=== PATIENT | female | born 1945 | race Caucasian/White ===

== ENCOUNTER 2016-10-09 19:07 | Emergency (ER) | payer MEDICARE, MEDICAID ==
[~2016-10-09] VITALS: Ht 157.5 cm; Wt 97.1 kg
[~2016-10-09 19:07] MED LIST: ALPR0.5T PO; AMLO10TA PO; AMLO1TAB20 PO; ASPI-587 PO; ATRV10T PO; CAPT25TA3 PO; CHOL5000 PO; CYCL10TA9 PO; DOXA8TAB33 PO; FURO40TA4 PO; GLIP10TA13 PO; GLPZ10TCR PO; HYDR-1231 PO; INSU100C7 SQ; KETO5DRO14 OS; LEVO75TA57 PO; LIRA0.6P2 SQ; Levofloxacin PO; MELO15TA14 PO; METF-380 PO; METF1000 PO; OXYB15TA PO; PARO20TA57 PO; PARO30TA74 PO; PRD20T PO; PRED5DRO3 OS; VALS320T11 PO
--- OUTSIDE RECORDS SUMMARY | 2016-10-09 19:15 | XMS REPORT | Continuity of Care Document ---
Author Author [facility] Organization [facility] Address Unknown Phone Unavailable Care Team Providers Care Sign Maintenance Name Role Phone NO, LOCAL PHYSICIAN PCP Unavailable Insurance Providers Payer Name Policy Number Subscriber Name Relationship s Medicare [id number] Renetta Farrar 18 Self / Same As Patient [facility] [id number] Renetta Farrar 18 Self / Same As Patient Advance Directives Directive Response Recorded Date/Time Advance Directives No 02/09/15 12:15am Organ Donor No 02/09/15 12:15am Resuscitation Status Full Code 02/09/15 12:15am Chief Complaint and Reason for Visit Chief Complaint ACUTE RENAL FAILURE;UTI Reason for Visit Urinary tract infectious disease Acute renal failure Problems Medical Problems Problem Onset Date Status Chest wall pain Unknown Active Non-traumatic subconjunctival hemorrhage of left eye Unknown Active Non-traumatic subconjunctival hemorrhage of left eye Unknown Active Urinary tract infectious disease Unknown Active Acute renal failure Unknown Active Medications Medication Dose Route Sig Days/Qty Instructions Order Date Discontinued Date Status Alprazolam 0.5 Mg PO TWICE A DAY PRN AGITATION 12/20/13 Active Aspirin 81 Mg PO DAILY 12/20/13 02/10/15 Discontinued Atorvastatin Calcium 10 Mg PO BEDTIME 12/20/13 Active Captopril 1 Each PO TWICE A DAY 12/20/13 02/09/15 Discontinued Cholecalciferol 5,000 Unit PO DAILY 12/20/13 Active Doxazosin Mesylate 8 Mg PO BEDTIME 12/20/13 02/10/15 Discontinued Amlodipine/Valsartan/Hctz 1 Each PO DAILY 12/20/13 02/09/15 Discontinued Glipizide 10 Mg PO DAILY 12/20/13 02/09/15 Discontinued Metformin HCl (Glucophage) 1,000 Mg PO TWICE A DAY WITH MEALS 02/10/15 Discontinued Insulin Glargine,Hum.rec.anlog 20 Unit SQ BEDTIME 12/20/13 Active Levothyroxine Sodium 88 Mcg PO DAILY 12/20/13 Active Oxybutynin Chloride (Ditropan Xl) 15 Mg PO DAILY 12/20/13 Active Paroxetine Hcl 30 Mg PO DAILY 12/20/13 02/10/15 Discontinued Cyclobenzaprine HCl (Flexeril) 1 Each PO EVERY 8HRS PRN SPASMS 10 Qty 12/20/13 02/09/15 Discontinued Hydrocodone Bit/Acetaminophen 1 Tab PO EVERY 4HRS PRN PAIN 10 Qty 12/2002/10/15 Discontinued Liraglutide 18 Mg SQ BEDTIME 0 Qty 02/09/15 02/10/15 Discontinued Ketorolac Tromethamine 1 Drop OS TWICE A DAY 5 Qty 02/09/15 Active Furosemide (Lasix) 40 Mg PO DAILY 30 Qty 02/09/15 02/10/15 Discontinued Amlodipine Besylate 10 Mg PO DAILY 30 Qty 02/09/15 Active Valsartan 320 Mg PO DAILY 30 Qty 02/09/15 Active Prednisolone Acetate 1 Drop OS DAILY 5 Qty 02/09/15 Active [Levofloxacin] 250 Mg PO DAILY@11 5 Qty 02/10/15 Active Paroxetine Hcl 15 Mg PO DAILY 30 Qty 02/10/15 Active Social History Social History Problem Response Recorded Date/Time Alcohol Use Denies Use 02/09/2015 12:15am Recreational Drug Use No 02/09/2015 12:15am Recent Foreign Travel No 12/20/2013 5:04pm Recent Infectious Disease Exposure No 12/20/2013 5:04pm Hospitalization with Isolation Denies 02/10/2015 3:33pm Smoking Status Never a Smoker 02/09/2015 12:15am Do you dip or chew tobacco? No 02/09/2015 12:15am Query Response Start Date Stop Date Smoking Status Never a Smoker Hospital Discharge Instructions No hospital discharge instructions. Plan of Care Discharge Date 02/10/15 2:00pm Disposition 30 STILL A PATIENT Instructions/Education Provided Urinary Tract Infection in Women (DC) Forms Provided PDI Surgical Prescriptions See Medications Section Referrals (Unspecified) Reason(s) for Referral: KEEP MAR. APPOINTMENT WITH YOUR Care Plan and Goals May resume furosamide for significant leg swelling. resume metformin tomorrow and victoza evening. hold gulcotrol XL and decrease paxil to 15mg daily{half tab of 30mg}. Keep march F/U with her Functional Status Query Response Date Recorded Comprehension Ability Understands Concepts February 09, 2015 12:15am Allergies, Adverse Reactions, Alerts Allergen Type Severity Reaction Status Last Updated Cephalexin Allergy Intermediate RASH Active 12/20/13 Immunizations Name Given Type Date of Influenza Vaccine 06/09/14 Historical Tetanus Booster (TDap) Unknown Historical pneumococcal polysaccharide PPV23 02/10/15 Administered pneumococcal polysaccharide PPV23 02/10/15 Administered Vital Signs Acute Vital Signs Vital Response Date/Time Temperature (Fahrenheit) 97.5 degrees F (97.6 - 99.5) Temperature (Calculated Celsius) 36.90486 degrees C (36.4 - 37.5) Temperature Source Temporal Pulse Rate (adult) 50 bpm (60 - 90) Respiratory Rate 16 bpm (12 - 24) O2 Sat by Pulse Oximetry 100 % (88 - 100) Blood Pressure 130/68 mm Hg Pain Pain Intensity 0 Height (Feet) 5 feet Height (Inches) 2.00 inches Height (Calculated Centimeters) 157.730978 cm Weight (Pounds) 226 pounds Weight (Ounces) 0.0 oz Weight (Calculated Grams) 559861.877 gm Weight (Calculated Kilograms) 102.884715 kilograms Calculated BMI 41.33 Results Laboratory Results Test Name Result Units Flags Reference Collection Date/Time Result Date/ Time Comments White Blood Count 7.3 10^3/uL 4.3-11.0 02/10/2015 4:21am 02/10/2015 5: 22am Red Blood Count 3.60 10^6/uL L 4.35-5.85 02/10/2015 4:21am 02/10/2015 5: 22am Hemoglobin 10.1 G/DL L 11.5-16.0 02/10/2015 4:21am 02/10/2015 5:22am Hematocrit 32 % L 35-52 02/10/2015 4:02/10/2015 5:22am Mean Corpuscular Volume 88 FL 80-99 02/10/2015 4:02/10/2015 5: 22am Mean Corpuscular Hemoglobin 28 PG 25-34 02/10/2015 4:02/10/2015 5: 22am Mean Corpuscular Hemoglobin Concent 32 G/DL 32-36 02/10/2015 4:02/2015 5:22am Red Cell Distribution Width 15.1 % H 10.0-14.5 02/10/2015 4:2014 5:22am Platelet Count 170 10^3/uL 130-400 02/10/2015 4:02/10/2015 5:22am Mean Platelet Volume 11.5 FL H 7.4-10.4 02/10/2015 4:02/10/2015 5: 22am Neutrophils (%) (Auto) 44 % 42-75 02/10/2015 4:02/10/2015 5:22am Lymphocytes (%) (Auto) 20 % 12-44 02/10/2015 4:02/10/2015 5:22am Monocytes (%) (Auto) 8 % 0-12 02/10/2015 4:02/10/2015 5:22am Eosinophils (%) (Auto) 28 % H 0-10 02/10/2015 4:02/10/2015 5:22am Basophils (%) (Auto) 0 % 0-10 02/10/2015 4:02/10/2015 5:22am Neutrophils # (Auto) 3.3 X 10^3 1.8-7.8 02/10/2015 4:02/10/2015 5: 22am Lymphocytes # (Auto) 1.5 X 10^3 1.0-4.0 02/10/2015 4:02/10/2015 5: 22am Monocytes # (Auto) 0.6 X 10^3 0.0-1.0 02/10/2015 4:02/10/2015 5: 22am Eosinophils # (Auto) 2.0 10^3/uL H 0.0-0.3 02/10/2015 4:21am 02/10/2015 5 :22am Basophils # (Auto) 0.0 10^3/uL 0.0-0.1 02/10/2015 4:21am 02/10/2015 5: 22am Neutrophils % (Manual) 68 % 02/08/2015 10:55pm 02/08/2015 11:35pm Band Neutrophils 1 % 02/08/2015 10:55pm 02/08/2015 11:35pm Lymphocytes % (Manual) 14 % 02/08/2015 10:55pm 02/08/2015 11:35pm Monocytes % (Manual) 2 % 02/08/2015 10:55pm 02/08/2015 11:35pm Eosinophils % (Manual) 15 % 02/08/2015 10:55pm 02/08/2015 11:35pm Basophils % (Manual) 0 % 02/08/2015 10:55pm 02/08/2015 11:35pm Poikilocytosis SLIGHT 02/08/2015 10:55pm 02/08/2015 11:35pm Anisocytosis SLIGHT 02/08/2015 10:55pm 02/08/2015 11:35pm Elliptocytes SLIGHT 02/08/2015 10:55pm 02/08/2015 11:35pm Rouleau MOD 02/08/2015 10:55pm 02/08/2015 11:35pm Urine Color YELLOW 02/08/2015 11:00pm 02/08/2015 11:22pm Urine Clarity SLIGHTLY CLOUDY 02/08/2015 11:00pm 02/08/2015 11: 22pm Urine pH 5 5-9 02/08/2015 11:00pm 02/08/2015 11:22pm Urine Specific [place] 1.015 * 1.016-1.022 02/08/2015 11:00pm 2014 11:22pm Urine Protein NEGATIVE NEGATIVE 02/08/2015 11:00pm 02/08/2015 11: 22pm Urine Glucose (UA) NEGATIVE NEGATIVE 02/08/2015 11:00pm 02/08/2015 11 :22pm Urine RBC (Auto) NEGATIVE NEGATIVE 02/08/2015 11:00pm 02/08/2015 11: 22pm Urine Ketones NEGATIVE NEGATIVE 02/08/2015 11:00pm 02/08/2015 11: 22pm Urine Nitrite POSITIVE * NEGATIVE 02/08/2015 11:00pm 02/08/2015 11: 22pm Urine Bilirubin NEGATIVE NEGATIVE 02/08/2015 11:00pm 02/08/2015 11: 22pm Urine Urobilinogen NORMAL MG/DL NORMAL 02/08/2015 11:00pm 02/08/2015 11 :22pm Urine Leukocyte Esterase 3+ * NEGATIVE 02/08/2015 11:00pm 02/08/2015 11 :22pm Urine RBC NONE /HPF 02/08/2015 11:00pm 02/08/2015 11:22pm Urine WBC 25-50 /HPF * 02/08/2015 11:00pm 02/08/2015 11:22pm WBC CLUMPING OBSERVED Urine Bacteria MODERATE /HPF * 02/08/2015 11:00pm 02/08/2015 11:22pm Urine Squamous Epithelial Cells TNTC /HPF * 02/08/2015 11:00pm 2014 11:22pm Urine Crystals NONE /LPF 02/08/2015 11:00pm 02/08/2015 11:22pm Urine Casts PRESENT /LPF 02/08/2015 11:00pm 02/08/2015 11:22pm Urine Hyaline Casts 0-2 /LPF * 02/08/2015 11:00pm 02/08/2015 11:22pm Urine Mucus NEGATIVE /LPF 02/08/2015 11:00pm 02/08/2015 11:22pm Urine Culture Indicated YES 02/08/2015 11:00pm 02/08/2015 11:22pm Sodium Level 141 MMOL/L 135-145 02/10/2015 4:21am 02/10/2015 5:43am Potassium Level 5.0 MMOL/L 3.6-5.0 02/10/2015 4:21am 02/10/2015 5:43am Chloride Level 113 MMOL/L H 98-107 02/10/2015 4:21am 02/10/2015 5:43am Carbon Dioxide Level 21 MMOL/L 21-32 02/10/2015 4:21am 02/10/2015 5: 43am Blood Urea Nitrogen 31 MG/DL H 7-18 02/10/2015 4:21am 02/10/2015 5:43am Creatinine 1.35 MG/DL H 0.60-1.30 02/10/2015 4:21am 02/10/2015 5:43am BUN/Creatinine Ratio 23 02/10/2015 4:21am 02/10/2015 5:43am Estimat Glomerular Filtration Rate 39 02/10/2015 4:21am 02/10/2015 5:43am GFR INTERPRETIVE DATA UNITS FOR ESTIMATED GFR (eGFR): mL/min/1.73 M2 REFERENCE RANGE FOR ESTIMATED GFR (eGFR) eGFR NORMAL eGFR >60 MODERATELY DECREASED eGFR 30-59 SEVERLY DECREASED eGFR 15-29 KIDNEY FAILURE <15 (OR DIALYSIS) Glucose Level 98 MG/DL 70-105 02/10/2015 4:21am 02/10/2015 5:43am Glucometer 133 MG/DL H 70-110 02/10/2015 9:26am 02/10/2015 9:33am Calcium Level 9.0 MG/DL 8.5-10.1 02/10/2015 4:21am 02/10/2015 5:43am Total Bilirubin 1.1 MG/DL H 0.1-1.0 02/09/2015 6:16am 02/09/2015 6:43am Alkaline Phosphatase 73 U/L 40-136 02/09/2015 6:16am 02/09/2015 6:43am Aspartate Amino Transf (AST/SGOT) 14 U/L 5-34 02/09/2015 6:16am 2014 6:43am Alanine Aminotransferase (ALT/SGPT) 9 U/L 0-55 02/09/2015 6:16am 2014 6:43am Total Protein 6.2 G/DL L 6.4-8.2 02/09/2015 6:16am 02/09/2015 6:43am Albumin 3.5 G/DL 3.2-4.5 02/09/2015 6:16am 02/09/2015 6:43am Microbiology Results Procedure Source Result Collection Date/Time Result Date/Time Urine Culture Urine, Clean Catch ESCHERICHIA COLI 02/08/2015 11:00pm 2014 7:46am ESCHERICHIA COLI 02/08/2015 11:00pm 02/10/2015 7:46am Procedures No known history of procedures. Encounters Encounter Location Date/Time Discharged Inpatient [facility] 02/08/15 11:50pm Departed Emergency Room [facility] 01/24/15 11:45pm Recent Diagnosis Urinary tract infectious disease Acute renal failure
--- NOTE | 2016-10-09 19:43 | ED Integumentary General ---
General Chief Complaint: Skin/Wound Problems Stated Complaint: POSS BITE Nursing Triage Note: Pt c/o poss bite to R shoulder. Pt reports first noticing area 2 days ago but reports area became more red and swollen today. Source: patient, spouse Exam Limitations: no limitations History of Present Illness Time seen by provider: 19:43 Initial Comments 71-year-old female patient presents to the emergency department with complaints of possible insect bite to the right shoulder. Patient reports increased swelling, redness, tenderness. Denies drainage. Location Injury Occurred: unknown Timing/Duration: getting worse, other (today onset) Location: extremities (right anterior shoulder) Possible Cause: insect bite (possible insect bite) Modifying Factors: worse with other (worse with palpation) Allergies and Home Medications Allergies Coded Allergies: cephalexin (Verified Allergy, Intermediate, RASH, 01/19/16) Home Medications Alprazolam 0.5 Mg Tablet 0.5 MG PO BID PRN PRN AGITATION (Reported) Amlodipine Besylate 10 Mg Tablet #30 10 MG PO DAILY (Reported) Atorvastatin Calcium 10 Mg Tablet 10 MG PO HS (Reported) Cholecalciferol 5,000 Unit Capsule 5,000 UNIT PO DAILY (Reported) Clindamycin HCl 300 Mg Capsule #28 300 MG PO QID Prescribed by: RAN FUNK on 10/09/161952 Insulin Glargine,Hum.rec.anlog 100 Unit/1 Ml Cartridge 20 UNIT SQ HS (Reported) Ketorolac Tromethamine 5 Ml Drops #5 1 DROP OS BID (Reported) Levothyroxine Sodium 75 Mcg Tablet 88 MCG PO DAILY (Reported) Meloxicam 15 Mg Tablet #20 15 MG PO DAILY Prescribed by: RAN FUNK on 06/27/16 1715 Minocycline HCl 100 Mg Capsule #14 100 MG PO BID Prescribed by: RAN FUNK on 10/09/161952 Ondansetron 8 Mg Tab.rapdis #10 8 MG PO Q6H PRN PRN NAUSEA Prescribed by: RAN FUNK on 10/09/162142 Oxybutynin Chloride 15 Mg Tab.osm.24 15 MG PO DAILY (Reported) Valsartan 320 Mg Tablet #30 320 MG PO DAILY (Reported) Constitutional: No chills, No diaphoresis, No dizziness, No fever, No malaise EENTM: no symptoms reported Respiratory: no symptoms reported Cardiovascular: no symptoms reported Gastrointestinal: no symptoms reported Musculoskeletal: no symptoms reported Skin: see HPI change in color (erythema right anterior shoulder) lumps (right anterior shoulder) Psychiatric/Neurological: No Symptoms Reported All Other Systems Reviewed Negative Unless Noted: Yes (Negative excepted noted.) Past Imsyxkm-Odrycx-Tvcnqk Hx Patient Social History Alcohol Use: Denies Use Recreational Drug Use: No Smoking Status: Never a Smoker Recent Foreign Travel: No Contact w/Someone Who Travel: No Recent Infectious Disease Expo: No Recent Hopitalizations: No Immunizations Up To Date Tetanus Booster (TDap): Unknown Date of Influenza Vaccine: Jun 09, 2014 Seasonal Allergies Seasonal Allergies: No Surgeries HX Surgeries: Yes (knee replacement x3, right mastectomy, back, hand, elbow surgery) Surgeries: Appendectomy, Breast, Eye Surgery, Orthopedic, Thyroidectomy Respiratory Hx Respiratory Disorders: No Cardiovascular Hx Cardiac Disorders: Yes Cardiac Disorders: High Cholesterol, Hypertension Neurological Hx Neurological Disorders: No 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, Menopausal Genitourinary Hx Genitourinary Disorders: Yes Genitourinary Disorders: UTI-Chronic Gastrointestinal Hx Gastrointestinal Disorders: No Musculoskeletal Hx Musculoskeletal Disorders: Yes Musculoskeletal Disorders: Arthritis Endocrine Hx Endocrine Disorders: Yes Endocrine Disorders: Diabetes, Insulin dep, Hypothyroidsim HEENT HX ENT Disorders: Yes HEENT Disorders: Cataract Cancer Hx Cancer: Yes Cancer: Breast Psychosocial Hx Psychiatric Problems: Yes Behavioral Health Disorders: Anxiety, Depression Integumentary HX Skin/Integumentary Disorder: No Blood Transfusions Hx Blood Disorders: No Reviewed Nursing Assessment Reviewed/Agree w Nursing PMH: Yes Family Medical History Significant Family History: No Pertinent Family Hx Family Medial History: Arthritis G8 BROTHER BRAIN ANEURYSM 19 MOTHER Hypertension G8 BROTHER G8 BROTHER G8 BROTHER Myocardial infarction 19 FATHER Physical Exam Vital Signs Vital Sign - Last 12Hours 10/09/16 19:19 Temp 96.4 Pulse 66 Resp 18 B/P 146/61 Pulse Ox 95 O2 Delivery Room Air Capillary Refill : Less Than 3 Seconds General Appearance: WD/WN no apparent distress Cardiovascular: normal peripheral pulses no edema Extremities: normal range of motion normal capillary refill other (2 x 3 centimeter area of erythema, tenderness, and swelling with central scab. Mild fluctuance centrally with surrounding induration. No evidence of necrosis noted.) Neurologic/Psychiatric: no motor/sensory deficits alert normal mood/affect oriented x 3 Skin: other (2 x 3 centimeter area of erythema, tenderness, and swelling with central scab. Mild fluctuance centrally with surrounding induration. No evidence of necrosis noted.) I&D : Site: right anterior shoulder Blade Size: 11 I & D Procedure: betadine prep sterile drapes applied sterile dressing applied gauze wick placed Progress Blood loss minimal. Patient tolerated the procedure well. Progress/Results/Core Measures Results/Orders My Orders Orders-RAN FUNK Lidocaine/Epi 1% 1:100,000 (Xylocaine /E (10/09/16 20:00) Clindamycin Capsule (Cleocin Capsule) (10/09/16 20:00) Rx-Doxycycline Tablet (Rx-Vibramycin Tab (10/09/16 19:46) Dipht,Pertuss(Acell),Tet Adult (Boostrix (10/09/16 19:49) Wound Culture (10/09/16 21:42) Medications Given in ED Current Medications Medications Dose Ordered Sig/[place] Route Start Time Stop Time Status Last Admin Dose Admin Clindamycin HCl 450 mg ONCE ONCE PO 10/09/16 20:00 10/09/16 20:01 DC 10/09/16 19:58 450 MG Lidocaine/ Epinephrine 20 ml ONCE ONCE INJ 10/09/16 20:00 10/09/16 20:01 DC 10/09/16 21:25 1 ML Vital Signs/I&O Vital Sign - Last 12Hours 10/09/16 19:19 Temp 96.4 Pulse 66 Resp 18 B/P 146/61 Pulse Ox 95 O2 Delivery Room Air Blood Pressure Mean: 89 Departure Communication Progress Notes Patient seen, evaluated, and incision with drainage performed. Patient now states she was seen at [facility] emergency department earlier today and only given Bactrim. Patient states she was concerned that the wound needed to be drained and therefore did not fill the Bactrim. Decided to come to the emergency department at [facility] for evaluation and second opinion. Patient is appreciative of care given at [facility]. Proceed with discharge to home with Cleocin and doxycycline. Patient instructed to avoid using the Bactrim due to interaction with her BP meds. Impression Impression: Primary Impression: Abscess Disposition: 01 HOME, SELF-CARE Condition: Improved Departure-Patient Inst. Decision time for Depature: 19:51 Referrals: NO,LOCAL PHYSICIAN (PCP/Family) Primary Care Physician Patient Instructions: Abscess Incision and Drainage (DC) Add. Discharge Instructions: All discharge instructions reviewed with patient and/or family. Voiced understanding. Medications as instructed. Continue usual home medications. Tylenol [id number] as directed for pain. Ibuprofen [id number] as directed for pain. Ice packs or heating pads as needed for pain. Tomorrow morning remove the bandage, shower with antibacterial soap, Pat dry. Pack wound with a small piece of gauze. Cover with gauze and tape. Follow-up with your family practitioner for recheck as an outpatient in the next 2-3 days, call for appointment time tomorrow morning. Return to the emergency department for worsened redness, drainage, fever, vomiting, or any other concerns. Scripts Ondansetron (Ondansetron Odt)8 Mg Tab.rapdis8 Mg PO Q6H PRN NAUSEA #10 TAB Ref 0 Prov:RAN FUNK 10/09/16 Minocycline HCl 100 Mg [id number] Mg PO BID #14 CAP Ref 0 Prov:RAN FUNK 10/09/16 Clindamycin HCl (Cleocin HCl)300 Mg [id number] Mg PO QID #28 CAP Ref 0 Prov:RAN FUNK 10/09/16 Work/School Note: Local Medical Staff Listing RAN FUNK Oct 09, 2016 19:43
[2016-10-09] MEDS ORDERED: RX-DOXYCYCLINE 100 MG (VIBRAMYCIN) TAB PPK#2 PO STA (19:46)
[2016-10-09] MEDS ORDERED: TETANUS,DIPTH,PERTUSS P/F (BOOSTRIX) 0.5 ML VIAL IM STA (19:49)
[2016-10-09] MEDS ORDERED: CLIN300C3 PO (19:53)
[2016-10-09] MEDS ORDERED: MINO100C2 PO (19:53)
[2016-10-09] MEDS ORDERED: LIDOCAINE/EPI 1%-1:100,000 (XYLOCAINE) 20ML INJ ONE (20:00)
[2016-10-09] MEDS ORDERED: CLINDAMYCIN 150 MG (CLEOCIN) CAP PO ONE (20:00)
[2016-10-09 21:41] VITALS: BP 140/65
[2016-10-09] MEDS ORDERED: ONDA8TAB13 PO (21:43)
== END 2016-10-09 21:41 | disposition home or self-care (01) ==
LOC: EDUNIT# 19:07 → ER 19:10
DX: L02.413 Cutaneous abscess of right upper limb (principal); Z23 Encounter for immunization; E11.9 Type 2 diabetes mellitus without complications; I10 Essential (primary) hypertension; Z79.4 Long term (current) use of insulin; Z79.899 Other long term (current) drug therapy
CPT/HCPCS: 10061; 87070; 87077; 87186; 87205; 90471; 90715

== ENCOUNTER 2016-11-06 00:30 | Emergency (ER) | payer MEDICARE, MEDICAID ==
[~2016-11-06] VITALS: Ht 157.5 cm; Wt 97.1 kg
[~2016-11-06 00:30] MED LIST changes: +CLIN300C3 PO; +MINO100C2 PO; +ONDA8TAB13 PO
[2016-11-06 01:15] LABS: BASOPHILS % (AUTO) 1 % (0-10); EOSINOPHILS # (AUTO) 0.4 10^3/uL (0.0-0.3); EOSINOPHILS % (AUTO) 7 % (0-10); LYMPHOCYTES # (AUTO) 1.4 X 10^3 (1.0-4.0); LYMPHOCYTES % (AUTO) 22 % (12-44); MEAN CORPUSCULAR HEMOGLOBIN 28 PG (25-34); MEAN CORPUSCULAR HGB CONC 31 G/DL (32-36); MEAN CORPUSCULAR VOLUME 90 FL (80-99); MEAN PLATELET VOLUME 10.8 FL (7.4-10.4); MONOCYTES # (AUTO) 0.6 X 10^3 (0.0-1.0); MONOCYTES % (AUTO) 9 % (0-12); NEUTROPHILS # (AUTO) 3.8 X 10^3 (1.8-7.8); NEUTROPHILS % (AUTO) 62 % (42-75); PLATELET COUNT 227 10^3/uL (130-400); RED BLOOD COUNT 3.16 10^6/uL (4.35-5.85); RED CELL DISTRIBUTION WIDTH 14.5 % (10.0-14.5); WHITE BLOOD COUNT 6.2 10^3/uL (4.3-11.0)
--- NOTE | 2016-11-06 02:36 | ED Fall/Injury ---
General Chief Complaint: Lower Extremity Stated Complaint: FALL INJ L LEG Nursing Triage Note: LEFT KNEE PAIN S/P FALL FROM SITTING POSTION. REPORTS TWISTING KNEE Source: patient Exam Limitations: no limitations History of Present Illness Time seen by provider: 00:30 Initial Comments Patient presents to the ER with complaints of left knee pain after having a fall about 3 days ago. She fell off of the stool twisting her foot/knee. She has been ambulatory with pain. She reports pain has worsened since the initial injury. She has pain and tenderness that radiates down into the left upper calf. Allergies and Home Medications Allergies Coded Allergies: cephalexin (Verified Allergy, Intermediate, RASH, 01/19/16) Home Medications Alprazolam 0.5 Mg Tablet, 0.5 MG PO BID PRN for AGITATION, (Reported) Amlodipine Besylate 10 Mg Tablet, 10 MG PO DAILY, #30 (Reported) Atorvastatin Calcium 10 Mg Tablet, 10 MG PO HS, (Reported) Cholecalciferol 5,000 Unit Capsule, 5,000 UNIT PO DAILY, (Reported) Hydrocodone/Acetaminophen 1 Each Tablet, 1 EACH PO Q6H PRN for PAIN, #10 Prescribed by: OMI BORRERO on 11/06/16 0238 Insulin Glargine,Hum.rec.anlog 100 Unit/1 Ml Cartridge, 20 UNIT SQ HS, (Reported ) Ketorolac Tromethamine 5 Ml Drops, 1 DROP OS BID, #5 (Reported) Levothyroxine Sodium 75 Mcg Tablet, 88 MCG PO DAILY, (Reported) Meloxicam 15 Mg Tablet, 15 MG PO DAILY, #20 Ref 0 Prescribed by: RAN FUNK on 06/27/16 1715 Minocycline HCl 100 Mg Capsule, 100 MG PO BID, #14 Ref 0 Prescribed by: RAN FUNK on 10/09/16 1953 Ondansetron 8 Mg Tab.rapdis, 8 MG PO Q6H PRN for NAUSEA, #10 Ref 0 Prescribed by: RAN FUNK on 10/09/16 2143 Oxybutynin Chloride 15 Mg Tab.osm.24, 15 MG PO DAILY, (Reported) Valsartan 320 Mg Tablet, 320 MG PO DAILY, #30 (Reported) Constitutional: no symptoms reported Eyes: No Symptoms Reported Ears, Nose, Mouth, Throat: no symptoms reported Respiratory: no symptoms reported Cardiovascular: no symptoms reported Gastrointestinal: no symptoms reported Genitourinary: no symptoms reported Musculoskeletal: see HPI Skin: no symptoms reported Psychiatric/Neurological: No Symptoms Reported Past Qyozocj-Kuwdiu-Ckadfl Hx Patient Social History Alcohol Use: Denies Use Recreational Drug Use: No Smoking Status: Never a Smoker 2nd Hand Smoke Exposure: No Recent Foreign Travel: No Contact w/Someone Who Travel: No Recent Infectious Disease Expo: No Recent Hopitalizations: No Immunizations Up To Date Tetanus Booster (TDap): Unknown Date of Influenza Vaccine: Jun 09, 2014 Seasonal Allergies Seasonal Allergies: No Surgeries HX Surgeries: Yes (knee replacement x3, right mastectomy, back, hand, elbow surgery) Surgeries: Appendectomy, Bladder Surgery, Breast, Eye Surgery, Hysterectomy, Joint Replacement (Bilateral knees), Orthopedic (Bilateral knee replacements, shoulder, leg fracture, back, carpal tunnel), Thyroidectomy Respiratory Hx Respiratory Disorders: No Cardiovascular Hx Cardiac Disorders: Yes Cardiac Disorders: Cardiomyopathy, High Cholesterol, Hypertension Neurological Hx Neurological Disorders: No 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 System Hx 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 Disorders: Yes 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, Menopausal Genitourinary Hx Genitourinary Disorders: Yes Genitourinary Disorders: Neurogenic Bladder, UTI-Chronic Gastrointestinal Hx Gastrointestinal Disorders: No Musculoskeletal Hx Musculoskeletal Disorders: Yes Musculoskeletal Disorders: Arthritis Endocrine Hx Endocrine Disorders: Yes Endocrine Disorders: Diabetes, Insulin dep, Hypothyroidsim HEENT HX ENT Disorders: Yes HEENT Disorders: Cataract Cancer Hx Cancer: Yes Cancer: Breast Psychosocial Hx Psychiatric Problems: Yes Behavioral Health Disorders: Anxiety, Depression Integumentary HX Skin/Integumentary Disorder: No Blood Transfusions Hx Blood Disorders: No Family Medical History Significant Family History: No Pertinent Family Hx Family Medial History: Arthritis G8 BROTHER BRAIN ANEURYSM 19 MOTHER Hypertension G8 BROTHER G8 BROTHER G8 BROTHER Myocardial infarction 19 FATHER Physical Exam Vital Signs Capillary Refill : Less Than 3 Seconds General Appearance: WD/WN, no apparent distress HEENT: PERRL/EOMI, normal ENT inspection Neck: normal inspection Cardiovascular: regular rate, rhythm Respiratory: normal breath sounds Extremities: no pedal edema, other (Posterior knee tenderness that radiates into the left calf. Range of motion intact with mild pain. 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 nml as tested, no motor/sensory deficits, alert, normal mood/affect, oriented x 3 Skin: normal color, warm/dry Bandar Coma Score Best Eye Response: (4) Open Spontaneously Best Verbal Response: (5) Oriented Best Motor Response: (6) Obeys Commands [place] Total: 15 Progress/Results/Core Measures Results/Orders Lab Results Laboratory Tests Test 11/06/16 01:08 Range/Units White Blood Count 6.2 4.3-11.0 10^3/uL Red Blood Count 3.16 L 4.35-5.85 10^6/uL Hemoglobin 8.8 L 11.5-16.0 G/DL Hematocrit 28 L 35-52 % Mean Corpuscular Volume 90 80-99 FL Mean Corpuscular Hemoglobin 28 25-34 PG Mean Corpuscular Hemoglobin Concent 31 L 32-36 G/DL Red Cell Distribution Width 14.5 10.0-14.5 % Platelet Count 227 130-400 10^3/uL Mean Platelet Volume 10.8 H 7.4-10.4 FL Neutrophils (%) (Auto) 62 42-75 % Lymphocytes (%) (Auto) 22 12-44 % Monocytes (%) (Auto) 9 0-12 % Eosinophils (%) (Auto) 7 0-10 % Basophils (%) (Auto) 1 0-10 % Neutrophils # (Auto) 3.8 1.8-7.8 X 10^3 Lymphocytes # (Auto) 1.4 1.0-4.0 X 10^3 Monocytes # (Auto) 0.6 0.0-1.0 X 10^3 Eosinophils # (Auto) 0.4 H 0.0-0.3 10^3/uL Basophils # (Auto) 0.0 0.0-0.1 10^3/uL D-Dimer 1.14 H 0.00-0.49 UG/ML C-Reactive Protein High Sensitivity 1.79 H 0.00-0.50 MG/DL My Orders Orders - OMI BARTH MD Cbc With Automated Diff (11/06/16 00:57) Hs C Reactive Protein (11/06/16 00:57) Fibrin Degradation Products (11/06/16 00:57) Knee, Left, 3 Views (11/06/16 00:57) Us Venous Lower Ext Lt (11/06/16 01:31) Hydrocodone/Apap 5/325 Tablet (Lortab 5 (11/06/16 02:45) Vital Signs/I&O Blood Pressure Mean: 90 Progress Note : Progress Note Basic labs were performed. WBC and CRP were not significantly abnormal. However, d-dimer was elevated. Follow-up ultrasound was performed and showed no evidence of DVT. X-ray showed no evidence of fracture or dislocation. Patient was treated with hydrocodone and dismissed. Diagnostic Imaging Diagonstic Imaging: Xray Plain Films/CT/US/NM/MRI: knee Comments X-ray viewed by me. Report not yet available. No acute abnormalities appreciated. Prosthesis seems in good position. Diagonstic Imaging: Ultrasound Plain Films/CT/US/NM/MRI: leg Comments Ultrasound of the left lower extremity showed no evidence for DVT. Stat Rad report reviewed. Departure Impression Impression: Primary Impression: Fall involving stool as cause of accidental injury Additional Impression: Left knee injury Qualified Codes: S89.92XA - Unspecified injury of left lower leg, initial encounter Disposition: HOME, SELF-CARE Condition: Improved Departure-Patient Inst. Decision time for Depature: 02:30 Referrals: NO,LOCAL PHYSICIAN (PCP/Family) Primary Care Physician Patient Instructions: Knee Sprain (DC) Add. Discharge Instructions: Take hydrocodone as prescribed for knee pain. It may be christy to take a stool softener with your hydrocodone to avoid constipation. Please follow-up with your orthopedic provider and/or primary care provider soon as possible. Rest, elevation, and icing in 20 minute intervals may be helpful in reducing pain and swelling. All discharge instructions reviewed with patient and/or family. Voiced understanding. Scripts Hydrocodone/Acetaminophen (Hydrocodon -Acetaminophen 5-325) 1 Each Tablet 1 EACH PO Q6H Y for PAIN, #10 TAB Prov: OMI BARTH MD 11/06/16 OMI BARTH MD Nov 06, 2016 02:35
[2016-11-06] MEDS ORDERED: HYDR-3812 PO (02:38)
[2016-11-06 02:43] VITALS: BP 144/61
[2016-11-06] MEDS ORDERED: HYDROcodone/APAP 5 MG/325 MG (LORTAB) TAB PO ONE (02:45)
--- NOTE | 2016-11-06 06:12 | Diagnostic Imaging Report ---
PROCEDURE: US left lower extremity venous. TECHNIQUE: Multiple real-time grayscale images were obtained over the left lower extremity in various projections. Additional duplex Doppler and color Doppler images were also obtained. INDICATION: Left knee pain. FINDINGS: The left common femoral, superficial femoral and popliteal veins demonstrate normal response to compression, augmentation, and Valsalva. There are no abnormal left lower extremity fluid collections or masses. IMPRESSION: No evidence of deep venous thrombosis in the left lower extremity. Dictated by: Dictated on workstation # [id number]
--- NOTE | 2016-11-06 08:08 | Diagnostic Imaging Report ---
INDICATION: Knee pain. 3 views were obtained. Comparison made with prior examination from 02/09/16. FINDINGS: There are stable post surgical changes of a left knee arthroplasty. Hardware is in satisfactory position. There is no fracture or dislocation. Soft tissues are unremarkable. IMPRESSION: Stable left knee arthroplasty. Dictated by: Dictated on workstation # [id number]
--- OUTSIDE RECORDS SUMMARY | 2016-11-29 11:34 | XMS REPORT | Continuity of Care Document ---
Author Author [facility] Organization [facility] Address Unknown Phone Unavailable Allergies Active Description Code Type Severity Reaction Onset Reported/Identified Relationship to Patient Clinical Status Yes cephalexin [id number] Drug Allergy Moderate RASH 01/19/2016 Medications Problems Date Dx Coded Attending Type Code Diagnosis Diagnosed By 12/20/2013 RAN WILLINGHAM Ot 722.0 CERVICAL DISC DISPLACMNT 12/20/2013 RAN WILLINGHAM Ot 723.1 CERVICALGIA 12/20/2013 RAN WILLINGHAM Ot 728.85 SPASM OF MUSCLE 07/19/2014 LYNN VILLAFANA WELDING TESTER Ot 786.50 CHEST PAIN NOS 07/19/2014 LYNN VILLAFANA WELDING TESTER Ot 786.52 PAINFUL RESPIRATION 01/25/2015 TRICIA MCCRARY QUINTON K Ot 372.72 CONJUNCTIVAL HEMORRHAGE 01/25/2015 ANICETO CLARKE DOA K Ot 379.91 PAIN IN OR AROUND EYE 02/10/2015 VIKTOR ZIMMER MD Ot 038.42 E COLI SEPTICEMIA 02/10/2015 VIKTOR ZIMMER MD Ot 244.0 POSTSURGICAL HYPOTHYROID 02/10/2015 VIKTOR ZIMMER MD Ot 250.00 DIAB NATHALIA WO COMPL, TYPE II OR UNSPEC TY 02/10/2015 VIKTOR ZIMMER MD Ot 272.0 PURE HYPERCHOLESTEROLEM 02/10/2015 VIKTOR ZIMMER MD Ot 272.4 HYPERLIPIDEMIA NEC/NOS 02/10/2015 VIKTOR ZIMMER MD Ot 276.51 DEHYDRATION 02/10/2015 VIKTOR ZIMMER MD Ot 296.20 DEPRESS DISORDER-UNSPEC 02/10/2015 VIKTOR ZIMMER MD Ot 300.00 ANXIETY STATE NOS 02/10/2015 VIKTOR ZIMMER MD Ot 311 02/10/2015 VIKTOR ZIMMER MD Ot 401.9 HYPERTENSION NOS 02/10/2015 VIKTOR ZIMMER MD Ot 536.2 PERSISTENT VOMITING 02/10/2015 VIKTOR ZIMMER MD Ot 584.9 ACUTE RENAL FAILURE, UNSPECIFIED 02/10/2015 VIKTRO ZIMMER MD Ot 599.0 URIN TRACT INFECTION NOS 02/10/2015 VIKTOR ZIMMER MD Ot 716.90 ARTHROPATHY NOS-UNSPEC 02/10/2015 VIKTOR ZIMMER MD Ot 724.5 BACKACHE NOS 02/10/2015 VIKTOR ZIMMER MD Ot 995.91 SEPSIS 02/10/2015 VIKTOR ZIMMER MD Ot V03.82 PROPHYLACTIC VACC AGAINST STREPTOCOCCUS 02/10/2015 VIKTOR ZIMMER MD Ot V10.3 HX OF BREAST MALIGNANCY 02/10/2015 VIKTOR ZIMMER MD Ot V45.71 ACQUIRED ABSENCE OF BREAST AND NIPPLE 02/10/2015 VIKTOR ZIMMER MD Ot V58.67 LONG-TERM (CURRENT) USE OF INSULIN 01/19/2016 RAN WILLINGHAM Ot M72.2 PLANTAR FASCIAL FIBROMATOSIS 01/20/2016 RAN WILLINGHAM Ot M72.2 PLANTAR FASCIAL FIBROMATOSIS 02/09/2016 MELBA REHMAN MD Ot S80.02XA CONTUSION OF LEFT KNEE, INITIAL ENCOUNTE 02/09/2016 MELBA REHMAN MD, Ot W01.0XXA FALL SAME LEV FROM SLIP/TRIP W/O STRIKE 02/09/2016 MELBA REHMAN MD, Ot Y92.[address] IN SINGLE-FAMILY (PRIVATE ) HO 02/09/2016 MELBA REHMAN MD, Ot Y99.8 OTHER EXTERNAL CAUSE STATUS 02/09/2016 MELBA REHMAN MD, Ot Z96.652 PRESENCE OF LEFT ARTIFICIAL KNEE JOINT 02/10/2016 RAN WILLINGHAM Ot M72.2 PLANTAR FASCIAL FIBROMATOSIS 02/12/2016 RAN WILLINGHAM Ot M72.2 PLANTAR FASCIAL FIBROMATOSIS 06/27/2016 RAN WILLINGHAM Ot E11.9 TYPE 2 DIABETES MELLITUS WITHOUT COMPLIC 06/27/2016 RAN WILLINGHAM Ot I10 ESSENTIAL (PRIMARY) HYPERTENSION 06/27/2016 RAN WILLINGHAM Ot M25.552 PAIN IN LEFT HIP 06/27/2016 RAN WILLINGHAM Ot M54.42 LUMBAGO WITH SCIATICA, LEFT SIDE 06/27/2016 RAN WILLINGHAM Ot Z79.4 RESIDENTIAL (CURRENT) USE OF INSULIN 06/27/2016 RAN WILLINGHAM Ot Z79.899 OTHER RESIDENTIAL (CURRENT) DRUG THERAPY 06/29/2016 RAN WILLINGHAM Ot E11.9 TYPE 2 DIABETES MELLITUS WITHOUT COMPLIC 06/29/2016 RAN WILLINGHAM Ot I10 ESSENTIAL (PRIMARY) HYPERTENSION 06/29/2016 RAN WILLINGHAM Ot M25.552 PAIN IN LEFT HIP 06/29/2016 RAN WILLINGHAM Ot M54.42 LUMBAGO WITH SCIATICA, LEFT SIDE 06/29/2016 RAN WILLINGHAM Ot 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.4 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 VENDOR 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 (CURRENT) USE OF INSULIN 06/29/2016 RAN WILLINGHAM Ot Z79.899 OTHER SUPERVISOR VENDOR QUALITY (CURRENT) DRUG THERAPY 10/09/2016 RAN WILLINGHAM Ot E11.9 TYPE 2 DIABETES MELLITUS WITHOUT COMPLIC 10/09/2016 RAN WILLINGHAM Ot I10 ESSENTIAL (PRIMARY) HYPERTENSION 10/09/2016 RAN WILLINGHAM Ot L02.413 CUTANEOUS ABSCESS OF RIGHT UPPER LIMB 10/09/2016 RAN WILLINGHAM Ot Z23 ENCOUNTER FOR IMMUNIZATION 10/09/2016 RAN WILLINGHAM Ot Z79.4 RESIDENTIAL (CURRENT) USE OF INSULIN 10/09/2016 RAN WILLINGHAM Ot Z79.899 OTHER RESIDENTIAL (CURRENT) DRUG THERAPY 10/11/2016 RAN WILLINGHAM Ot E11.9 TYPE 2 DIABETES MELLITUS WITHOUT COMPLIC 10/11/2016 RAN WILLINGHAM Ot I10 ESSENTIAL (PRIMARY) HYPERTENSION 10/11/2016 RAN WILLINGHAM Ot L02.413 CUTANEOUS ABSCESS OF RIGHT UPPER LIMB 10/11/2016 RAN WILLINGHAM Ot Z23 ENCOUNTER FOR IMMUNIZATION 10/11/2016 RAN WILLINGHAM Ot Z79.4 RESIDENTIAL (CURRENT) USE OF INSULIN 10/11/2016 RAN WILLINGHAM Ot Z79.899 OTHER SUPERVISOR VENDOR QUALITY (CURRENT) DRUG THERAPY 10/14/2016 RAN WILLINGHAM Ot E11.9 TYPE 2 DIABETES MELLITUS WITHOUT COMPLIC 10/14/2016 RAN WILLINGHAM Ot I10 ESSENTIAL (PRIMARY) HYPERTENSION 10/14/2016 RAN WILLINGHAM Ot L02.413 CUTANEOUS ABSCESS OF RIGHT UPPER LIMB 10/14/2016 RAN WILLINGHAM Ot Z23 ENCOUNTER FOR IMMUNIZATION 10/14/2016 RAN WILLINGHAM Ot Z79.4 RESIDENTIAL (CURRENT) USE OF INSULIN 10/14/2016 RAN WILLINGHAM Ot Z79.899 OTHER SUPERVISOR VENDOR QUALITY (CURRENT) DRUG THERAPY 11/08/2016 OMI BARTH MD Ot E11.9 TYPE 2 DIABETES MELLITUS WITHOUT COMPLIC 11/08/2016 OMI BARTH MD, Ot I10 ESSENTIAL (PRIMARY) HYPERTENSION 11/08/2016 OMI BARTH MD, Ot S89.92XA UNSPECIFIED INJURY OF LEFT LOWER LEG, IN 11/08/2016 OMI BARTH MD, Ot W07.XXXA FALL FROM CHAIR, INITIAL ENCOUNTER 11/08/2016 OMI BARTH MD, Ot Y99.8 OTHER EXTERNAL CAUSE STATUS 11/08/2016 OMI BARTH MD, Ot Z79.4 RESIDENTIAL (CURRENT) USE OF INSULIN 11/08/2016 OMI BARTH MD, Ot Z79.899 OTHER SUPERVISOR VENDOR QUALITY (CURRENT) DRUG THERAPY 11/08/2016 OMI BARTH MD, Ot Z85.3 PERSONAL HISTORY OF MALIGNANT NEOPLASM O 11/08/2016 OMI BARTH MD, Ot Z90.12 ACQUIRED ABSENCE OF LEFT BREAST AND NIPP 11/08/2016 OMI BARTH MD, Ot Z96.652 PRESENCE OF LEFT ARTIFICIAL KNEE JOINT Procedures Results Test Result Range Gram stain microscopy - 10/09/16 21:25 GRAM STAIN RESULT NO BACTERIA NRG Bacteria identification in wound by culture - 10/09/16 21:25 Bacteria identification in wound by culture [id number] NRG FREE TEXT EXTERNAL SENSITIVITY REPORTED 10/11/16 7:35 NRG QUANTITY OF GROWTH Moderate Growth NRG MRSA AGAR Screening test for MRSA is NEGATIVE (Final to follow) NRG CALL POSITIVES (F1 HELP) CALLED TO VERÓNICA GALLAGHER 10/11/16 7:45 BY [facility] Bacterial susceptibility panel - 10/09/16 21:25 Oxacillin susceptibility test by minimum inhibitory concentration >= NRG Gentamicin susceptibility test by minimum inhibitory concentration <= NRG Clindamycin susceptibility test by minimum inhibitory concentration <= NRG Erythromycin susceptibility test by minimum inhibitory concentration >= NRG Trimethoprim/sulfamethoxazole susceptibility test by minimum inhibitoryconcentration <= NRG Vancomycin susceptibility test by minimum inhibitory concentration 1 NRG Levofloxacin susceptibility test by minimum inhibitory concentration 0.5 NRG Rifampin susceptibility test by minimum inhibitory concentration <= NRG Tetracycline susceptibility test by minimum inhibitory concentration <= NRG Complete blood count (CBC) with automated white blood cell (WBC) differential - 11/06/16 01:08 Blood leukocytes automated count (number/volume) 6.2 10*3/ uL 4.3-11.0 Blood erythrocytes automated count (number/volume) 3.16 10*6 /uL 4.35-5.85 Venous blood hemoglobin measurement (mass/volume) 8.8 g/dL 11.5-16.0 Blood hematocrit (volume fraction) 28 % 35-52 Automated erythrocyte mean corpuscular volume 90 [foz_us] 80-99 Automated erythrocyte mean corpuscular hemoglobin (mass per erythrocyte) 28 pg 25-34 Automated erythrocyte mean corpuscular hemoglobin concentration measurement ( mass/volume) 31 g/dL 32-36 Automated erythrocyte distribution width ratio 14.5 % 10.0-14.5 Automated blood platelet count (count/volume) 227 10*3/uL 130-400 Automated blood platelet mean volume measurement 10.8 [foz_ us] 7.4-10.4 Automated blood neutrophils/100 leukocytes 62 % 42-75 Automated blood lymphocytes/100 leukocytes 22 % 12-44 Blood monocytes/100 leukocytes 9 % 0-12 Automated blood eosinophils/100 leukocytes 7 % 0-10 Automated blood basophils/100 leukocytes 1 % 0-10 Blood neutrophils automated count (number/volume) 3.8 10*3 1.8-7.8 Blood lymphocytes automated count (number/volume) 1.4 10*3 1.0-4.0 Blood monocytes automated count (number/volume) 0.6 10*3 0.0-1.0 Automated eosinophil count 0.4 10*3/uL 0.0-0.3 Automated blood basophil count (count/volume) 0.0 10*3/uL 0.0-0.1 Fibrin D-dimer FEU measurement in platelet poor plasma (mass/volume) - 01:08 Fibrin D-dimer FEU measurement in platelet poor plasma (mass/volume) 1.14 ug/mL 0.00-0.49 Serum or plasma C reactive protein measurement (mass/volume) - 11/06/16 01:08 Serum or plasma C reactive protein measurement (mass/volume) 1.79 mg/dL 0.00-0.50 Encounters ACCT No. Visit Date/Time Discharge Status Pt. Type Provider Facility Loc./Unit Complaint [id number] 11/06/2016 00:33:00 2016 02:43:00 DIS Outpatient OMI BARTH MD [facility] ER FALL INJ L LEG [id number] 10/09/2016 19:10:00 2016 21:41:00 DIS Emergency RAN WILLINGHAM [facility] ER POSS BITE [id number] 06/27/2016 16:27:00 2015 17:30:00 DIS Emergency RAN WILLINGHAM [facility] ER L HIP/LEG PAIN [id number] 02/09/2016 10:13:00 2015 11:18:00 DIS Emergency MELBA REHMAN MD [facility] ER FALL/LEFT KNEE PAIN [id number] 01/19/2016 19:48:00 2015 20:39:00 DIS Emergency RAN WILLINGHAM [facility] ER L FOOT PAIN [id number] 02/08/2015 23:50:00 2014 14:00:00 DIS Inpatient GORAN CHIN, VIKTOR Reese [facility] SURGICAL ACUTE RENAL FAILURE;UTI [id number] 01/24/2015 23:45:00 2014 00:20:00 DIS Emergency QUINTON CLARKE DO [facility] ER L EYE PAIN,SWELLING [id number] 07/19/2014 10:37:00 2013 12:02:00 DIS Emergency LYNN VILLAFANA APRN [facility] ER LEFT RIB/SHOULDER PAIN [id number] 12/20/2013 16:58:00 2013 18:52:00 DIS Emergency RAN WILLINGHAM [facility] ER NECK PAIN
== END 2016-11-06 02:43 | disposition home or self-care (01) ==
LOC: EDUNIT# 00:30 → ER 00:33
DX: S89.92XA Unspecified injury of left lower leg, initial encounter (principal); M25.562 Pain in left knee; M79.662 Pain in left lower leg; I10 Essential (primary) hypertension; E11.9 Type 2 diabetes mellitus without complications; Z79.899 Other long term (current) drug therapy; Z79.4 Long term (current) use of insulin; Z96.652 Presence of left artificial knee joint; Z90.12 Acquired absence of left breast and nipple; Z85.3 Personal history of malignant neoplasm of breast; W07.XXXA Fall from chair, initial encounter; Y99.8 Other external cause status
CPT/HCPCS: 36415; 73562; 85025; 85379; 86141; 99283

== ENCOUNTER 2017-01-25 22:17 | Emergency (ER) | payer MEDICARE, MEDICAID ==
[~2017-01-25 22:17] MED LIST changes: +HYDR-3812 PO
[2017-01-25] MEDS ORDERED: KETOROLAC 60 MG/2 ML VIAL IM ONE (23:00)
[2017-01-25] MEDS ORDERED: ORPHENADRINE 60 MG/2 ML (NORFLEX) AMP IM ONE (23:00)
== END 2017-01-25 23:52 | disposition home or self-care (01) ==
DX: M25.511 Pain in right shoulder (principal); G89.29 Other chronic pain; M54.6 Pain in thoracic spine; F41.8 Other specified anxiety disorders; E11.9 Type 2 diabetes mellitus without complications; E03.9 Hypothyroidism, unspecified; M46.90 Unspecified inflammatory spondylopathy, site unspecified; I10 Essential (primary) hypertension; Z98.890 Other specified postprocedural states; Z79.4 Long term (current) use of insulin

== ENCOUNTER 2017-05-16 19:30 | Emergency (ER) | payer MEDICARE, MEDICAID ==
[~2017-05-16] VITALS: Ht 157.5 cm; Wt 97.1 kg
[2017-05-16] MEDS ORDERED: METF1000 (19:44)
[2017-05-16] MEDS ORDERED: VALS320T14 (19:44)
[2017-05-16] MEDS ORDERED: ISM60TCR (19:44)
[2017-05-16] MEDS ORDERED: FURO40TA4 (19:44)
[2017-05-16] MEDS ORDERED: NAPR500T3 (19:44)
[2017-05-16] MEDS ORDERED: PARO30TA3 (19:44)
[2017-05-16] MEDS ORDERED: KETOROLAC 60 MG/2 ML VIAL IM ONE (19:45)
[2017-05-16] MEDS ORDERED: ORPHENADRINE 60 MG/2 ML (NORFLEX) AMP IM ONE (19:45)
[2017-05-16] MEDS ORDERED: CYCL5TAB PO (19:46)
--- NOTE | 2017-05-16 19:47 | ED Hip Pain/Injury ---
General Chief Complaint: Hip/Pelvic Problems Stated Complaint: RT LEG/HIP PAIN Source: patient Exam Limitations: no limitations History of Present Illness Time seen by provider: 19:44 Initial Comments Pain over the right buttock for one week without known injury. Pain is worsened by certain movements such as getting in the car. It does not radiate down her leg and there is no midline low back pain. No loss of bowel or bladder control. Timing/Duration: week Severity: moderate Allergies and Home Medications Allergies Coded Allergies: cephalexin (Verified Allergy, Intermediate, RASH, 01/19/16) Home Medications Alprazolam 0.5 Mg Tablet, 0.5 MG PO BID PRN for AGITATION, (Reported) Amlodipine Besylate 10 Mg Tablet, 10 MG PO DAILY, #30 (Reported) Atorvastatin Calcium 10 Mg Tablet, 10 MG PO HS, (Reported) Cholecalciferol 5,000 Unit Capsule, 5,000 UNIT PO DAILY, (Reported) Furosemide 40 Mg Tablet, (Reported) Hydrocodone/Acetaminophen 1 Each Tablet, 1 EACH PO Q6H PRN for PAIN, #10 Prescribed by: OMI BORRERO on 11/06/16 0238 Insulin Glargine,Hum.rec.anlog 100 Unit/1 Ml Cartridge, 20 UNIT SQ HS, (Reported ) Isosorbide Mononitrate 60 Mg Tab, (Reported) Levothyroxine Sodium 75 Mcg Tablet, 88 MCG PO DAILY, (Reported) Metformin HCl 1,000 Mg Tablet, (Reported) Naproxen 500 Mg Tablet, (Reported) Oxybutynin Chloride 15 Mg Tab.osm.24, 15 MG PO DAILY, (Reported) Paroxetine HCl 30 Mg Tablet, (Reported) Valsartan 320 Mg Tablet, (Reported) Constitutional: see HPI EENTM: see HPI Respiratory: no symptoms reported Genitourinary: no symptoms reported Musculoskeletal: see HPI Skin: no symptoms reported Psychiatric/Neurological: No Symptoms Reported Past Adsmhfw-Elmxkw-Tqeluq Hx Patient Social History 2nd Hand Smoke Exposure: Yes Recent Foreign Travel: No Contact w/Someone Who Travel: No Recent Hopitalizations: No Immunizations Up To Date Tetanus Booster (TDap): Unknown Date of Influenza Vaccine: Jun 09, 2014 Seasonal Allergies Seasonal Allergies: No Surgeries History of Surgeries: Yes (knee replacement x3, right mastectomy, back, hand, elbow surgery) Surgeries: Appendectomy, Bladder Surgery, Breast, Eye Surgery, Hysterectomy, Joint Replacement, Orthopedic, Thyroidectomy Respiratory History of Respiratory Disorde: No Cardiovascular History of Cardiac Disorders: Yes Cardiac Disorders: Cardiomyopathy, High Cholesterol, Hypertension Neurological History of Neurological Disord: No 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 System Hx 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, 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 Genitourinary History of Genitourinary Disor: Yes Genitourinary Disorders: Neurogenic Bladder, UTI-Chronic Gastrointestinal History of Gastrointestinal Di: No Musculoskeletal History of Musculoskeletal Dis: Yes Musculoskeletal Disorders: Arthritis, Chronic Back Pain Endocrine History of Endocrine Disorders: Yes Endocrine Disorders: Hypothyroidsim, Diabetes, Non-Insulin dep HEENT HEENT Disorders: Cataract Cancer History of Cancer: Yes Cancer: Breast Psychosocial History of Psychiatric Problem: Yes Behavioral Health Disorders: Anxiety, Depression Integumentary History of Skin or Integumenta: No Blood Transfusions History of Blood Disorders: No Family Medical History Significant Family History: No Pertinent Family Hx Family Medial History: Arthritis G8 BROTHER BRAIN ANEURYSM 19 MOTHER Hypertension G8 BROTHER G8 BROTHER G8 BROTHER Myocardial infarction 19 FATHER Physical Exam Vital Signs Capillary Refill : General Appearance: No Apparent Distress, WD/WN HEENT: PERRL/EOMI, TMs Normal Neck: Full Range of Motion, Normal Inspection Respiratory: Normal Breath Sounds, No Accessory Muscle Use, No Respiratory Distress Gastrointestinal: Non Tender, Soft Back: Other (right buttocks is tender to palpation) Extremity: Normal Capillary Refill, Normal Inspection Neurologic/Psychiatric: Alert, Oriented x3, No Motor/Sensory Deficits Skin: Normal Color, Warm/Dry Comments The skin overlying the area of tenderness is normal in appearance without vesicles, erythema or other rash or bruising Progress/Results/Core Measures Results/Orders My Orders Orders - LYNN VILLAFANA APRN Orphenadrine Injection (Norflex Injectio (05/16/17 19:45) Ketorolac Injection (Toradol Injection) (05/16/17 19:45) Departure Impression Impression: Primary Impression: Piriformis syndrome Disposition: 01 HOME, SELF-CARE (History of acute renal) Condition: Stable Departure-Patient Inst. Decision time for Depature: 19:45 Referrals: NO,LOCAL PHYSICIAN (PCP/Family) Primary Care Physician Patient Instructions: Muscle Spasms (DC) Add. Discharge Instructions: 1. Follow-up with your doctor later this week for recheck 2. Return to ER for any concerns All discharge instructions reviewed with patient and/or family. Voiced understanding. Scripts Cyclobenzaprine HCl (Cyclobenzaprine HCl) 5 Mg Tablet 5 MG PO TID Y for PAIN-MODERATE TO SEVERE, #20 TAB Prov: LYNN VILLAFANA APRN 05/16/17 Images Torso/Trunk 1 - Tenderness LYNN VILLAFANA APRN May 16, 2017 19:46
[2017-05-16] MEDS ORDERED: KETOROLAC 30 MG/ML VIAL IM ONE (20:00)
[2017-05-16 20:32] VITALS: BP 153/78
== END 2017-05-16 20:33 | disposition home or self-care (01) ==
LOC: EDUNIT# 19:30 → ER 19:31
DX: G57.01 Lesion of sciatic nerve, right lower limb (principal); F41.9 Anxiety disorder, unspecified; F32.9 Major depressive disorder, single episode, unspecified; E03.9 Hypothyroidism, unspecified; E11.9 Type 2 diabetes mellitus without complications; E78.00 Pure hypercholesterolemia, unspecified; I10 Essential (primary) hypertension; Z85.3 Personal history of malignant neoplasm of breast; Z77.22 Contact with and (suspected) exposure to environmental tobacco smoke (acute) (chronic); Z90.710 Acquired absence of both cervix and uterus; Z90.49 Acquired absence of other specified parts of digestive tract; Z90.89 Acquired absence of other organs; Z79.4 Long term (current) use of insulin
CPT/HCPCS: 99284

== ENCOUNTER 2018-02-10 13:25 | Emergency (ER) | payer MEDICARE, MEDICAID ==
[~2018-02-10] VITALS: Ht 157.5 cm; Wt 103.4 kg
[~2018-02-10 13:25] MED LIST changes: +ACHD5005 PO; +CYCL5TAB PO; +FURO40TA4; -HYDR-3812 PO; +ISM60TCR; -METF1000 PO; +METF10002; +METF10002 PO; +NAPR-915; +PARO30TA3; +VALS320T15
--- NOTE | 2018-02-10 14:06 | ED EENT ---
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 YESTERDAY NOTICED A KNOT ABOVE EYE. SM KNOT NOTED WITH SM ABRASION IN MIDDLE. Source: patient, spouse Exam Limitations: no limitations History of Present Illness Date Seen by Provider: Feb 10, 2018 Time Seen by Provider: 13:52 Initial Comments Patient presents to the ER by private conveyance with a chief complaint of one day progressively worsening redness around her eye and redness in her eye. She says the eye itself is gotten better. She has no sensation of foreign body. It does not itch and she is not been rubbing or scratching around her eye. She does not recall getting in any kind of poison elisabeth or allergen. She does not have seasonal allergies. She had grandkids over for February. She's not having any fevers chills or discharge from the eye. Allergies and Home Medications Allergies Coded Allergies: cephalexin (Verified Allergy, Intermediate, RASH, 01/19/16) Home Medications Alprazolam 0.5 Mg Tablet, 0.5 MG PO BID PRN for AGITATION, (Reported) Amlodipine Besylate 10 Mg Tablet, 10 MG PO DAILY, (Reported) Atorvastatin Calcium 10 Mg Tablet, 10 MG PO HS, (Reported) Cholecalciferol 5,000 Unit Capsule, 5,000 UNIT PO DAILY, (Reported) Cyclobenzaprine HCl 5 Mg Tablet, 5 MG PO TID PRN for PAIN-MODERATE TO SEVERE Prescribed by: LYNN VILLAFANA on 05/16/171945 Hydrocodone Bit/Acetaminophen 1 Each Tablet, 1 EACH PO Q6H PRN for PAIN Prescribed by: OMI BORRERO on 11/06/16 023 Insulin Glargine,Hum.rec.anlog 100 Unit/1 Ml Cartridge, 20 UNIT SQ HS, (Reported ) Levothyroxine Sodium 75 Mcg Tablet, 88 MCG PO DAILY, (Reported) Oxybutynin Chloride 15 Mg Tab.osm.24, 15 MG PO DAILY, (Reported) Patient Home Medication List Home Medication List Reviewed: Yes Review of Systems Constitutional: No chills, No diaphoresis, No fever, No malaise Eyes: Denies Blindness, Denies Blurred Vision, Denies Drainage, Denies Decreased Acuity, Denies Foreign Body Sensation; Inflammation; Denies Pain, Denies Photophobia Ears: Denies Dizziness, Denies Pain Nose: denies clots, denies epistaxis, denies pain Mouth: denies clots, denies pain Throat: denies pain, denies swelling Respiratory: No cough, No phlegm, No short of breath Past Lgolbde-Wkwmxp-Isvpxj Hx Patient Social History Alcohol Use: Denies Use Recreational Drug Use: No Smoking Status: Never a Smoker 2nd Hand Smoke Exposure: Yes Recent Foreign Travel: No Contact w/Someone Who Travel: No Recent Infectious Disease Expo: No Recent Hopitalizations: No Immunizations Up To Date Tetanus Booster (TDap): Unknown Date of Influenza Vaccine: Jun 09, 2014 Seasonal Allergies Seasonal Allergies: No Past Medical History Surgeries: Yes (knee replacement x3, right mastectomy, back, hand, elbow surgery) Appendectomy, Bladder Surgery, Breast, Eye Surgery, Hysterectomy, Joint Replacement, Orthopedic, Thyroidectomy Respiratory: No Cardiac: Yes Cardiomyopathy, High Cholesterol, Hypertension Neurological: No 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, 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 Genitourinary: Yes Neurogenic Bladder, UTI-Chronic Gastrointestinal: No Musculoskeletal: Yes Arthritis, Chronic Back Pain Endocrine: Yes Hypothyroidsim, Diabetes, Non-Insulin dep Cataract Cancer: Yes Breast Psychosocial: Yes Anxiety, Depression Integumentary: No Blood Disorders: No Family Medical History Arthritis G8 BROTHER BRAIN ANEURYSM 19 MOTHER Hypertension G8 BROTHER G8 BROTHER G8 BROTHER Myocardial infarction 19 FATHER No Pertinent Family Hx Physical Exam Vital Signs Vital Signs - First Documented 02/10/18 13:30 Temp 98.7 Pulse 80 Resp 18 B/P (MAP) 157/82 (107) Height, Weight, BMI Height: 5', 2.00" Weight: 228lbs 0oz, 103.954180bp Method:Stated ,41.33BMI General Appearance: WD/WN, no apparent distress Eyes: right eye lid inflammation, right eye other (mild conjunctival injection and scleral injection); left eye normal inspection; bilateral eye PERRL, bilateral eye EOMI Ears: bilateral ear auricle normal, bilateral ear canal normal, bilateral ear other (bilateral mucoid effusion seen) Nose: normal inspection; No discharge Mouth/Throat: normal mouth inspection, pharynx normal Cardiovascular: normal peripheral pulses, regular rate, rhythm Respiratory: no respiratory distress, no accessory muscle use Neurologic/Psychiatric: alert, normal mood/affect, oriented x 3 Skin: other (mild erythema of the upper eyelid and surrounding tissue with trace edema) Progress/Results/Core Measures Results/Orders Vital Signs/I&O 02/10/18 13:30 Temp 98.7 Pulse 80 Resp 18 B/P (MAP) 157/82 (107) Blood Pressure Mean: 107 Progress Progress Note : Time: 14:03 Progress Note Periorbital cellulitis Vs Conjunctivitis. We will send her on Top Ciprodex and F /U with Sewer Builder/PCP next week. Departure Impression Primary Impression: Conjunctivitis Qualified Codes: H10.31 - Unspecified acute conjunctivitis, right eye Additional Impression: Bilateral otitis media with effusion Disposition: HOME, SELF-CARE Condition: Stable Departure-Patient Inst. Decision time for Depature: 14:04 Referrals: NO,LOCAL PHYSICIAN (PCP/Family) Primary Care Physician Patient Instructions: Conjunctivitis ([place]keye) (DC), Subconjunctival Hemorrhage Add. Discharge Instructions: Use a warm compress to your eye every 2-4 hours as needed. Apply 2 drops of the Ciprofloxacin to your right eye 3 times a day for the next week. Follow-up with your primary care physician or or first assist registered nurse next week or 2. If you develop fevers chills nausea vomiting or other worsening symptoms he should return to the ER. All discharge instructions reviewed with patient and/or family. Voiced understanding. Scripts Ciprofloxacin HCl (Ciloxan) 5 Ml Drops 2 DROPS OP TID for 7 Days, #1 EACH 0 Refills 3 Drops Each Ear Prov: JESSICA SOSA 02/10/18 JESSICA SOSA Feb 10, 2018 14:05
[2018-02-10] MEDS ORDERED: CIPR5DRO OP (14:09)
[2018-02-10 14:19] VITALS: BP 157/82
== END 2018-02-10 14:19 | disposition home or self-care (01) ==
LOC: EDUNIT# 13:25 → ER 13:27
DX: H10.9 Unspecified conjunctivitis (principal); H65.93 Unspecified nonsuppurative otitis media, bilateral; I42.9 Cardiomyopathy, unspecified; E78.00 Pure hypercholesterolemia, unspecified; I10 Essential (primary) hypertension; E03.9 Hypothyroidism, unspecified; E11.9 Type 2 diabetes mellitus without complications; F41.9 Anxiety disorder, unspecified; F32.9 Major depressive disorder, single episode, unspecified; Z85.3 Personal history of malignant neoplasm of breast; Z87.440 Personal history of urinary (tract) infections; Z87.448 Personal history of other diseases of urinary system; Z82.49 Family history of ischemic heart disease and other diseases of the circulatory system; Z88.1 Allergy status to other antibiotic agents; Z79.4 Long term (current) use of insulin; Z90.11 Acquired absence of right breast and nipple; Z90.89 Acquired absence of other organs; Z90.710 Acquired absence of both cervix and uterus
CPT/HCPCS: 99281

== ENCOUNTER 2018-02-20 23:17 | Emergency (ER) | payer MEDICARE, MEDICAID ==
[~2018-02-20] VITALS: Ht 157.5 cm; Wt 103.4 kg
[~2018-02-20 23:17] MED LIST changes: +CIPR5DRO OP
[2018-02-21] MEDS ORDERED: HYDR-3812 PO (00:39)
--- NOTE | 2018-02-21 00:39 | ED Hip Pain/Injury ---
General Chief Complaint: Hip/Pelvic Problems Stated Complaint: R HIP PAIN Nursing Triage Note: PT PRESENTS TO ER WITH COMPLAINT OF RIGHT HIP PAIN FOR 4 DAYS. DENIES INJURY. Source: patient Exam Limitations: no limitations History of Present Illness Date Seen by Provider: Feb 21, 2018 Time Seen by Provider: 00:19 Initial Comments This 72-year-old woman presents to the emergency room with complaints of right hip pain for the past 4-5 days. Pain has been worsening despite taking naproxen and Tylenol. These medications do temporarily reduce the pain. She denies any prior problems with her hip. She has had no trauma. She is still able to walk but she has some pain and walks with a limp. She denies any recent strenuous activities. She does have arthritis in other areas but not the right hip to her knowledge. Allergies and Home Medications Allergies Coded Allergies: cephalexin (Verified Allergy, Intermediate, RASH, 01/19/16) Home Medications Alprazolam 0.5 Mg Tablet, 0.5 MG PO BID PRN for AGITATION, (Reported) Amlodipine Besylate 10 Mg Tablet, 10 MG PO DAILY, (Reported) Atorvastatin Calcium 10 Mg Tablet, 10 MG PO HS, (Reported) Cholecalciferol 5,000 Unit Capsule, 5,000 UNIT PO DAILY, (Reported) Ciprofloxacin HCl 5 Ml Drops, 2 DROPS OP TID 3 Drops Each Ear Prescribed by: JESSICA SOSA on 02/10/18 1409 Cyclobenzaprine HCl 5 Mg Tablet, 5 MG PO TID PRN for PAIN-MODERATE TO SEVERE Prescribed by: LYNN VILLAFANA on 05/16/17 1946 Hydrocodone Bit/Acetaminophen 1 Each Tablet, 1 EACH PO Q6H PRN for PAIN Prescribed by: OMI BORRERO on 11/06/16 0238 Hydrocodone/Acetaminophen 1 Each Tablet, 1 EACH PO Q6H Prescribed by: OMI BORRERO on 02/21/18 0039 Insulin Glargine,Hum.rec.anlog 100 Unit/1 Ml Cartridge, 20 UNIT SQ HS, (Reported ) Levothyroxine Sodium 75 Mcg Tablet, 88 MCG PO DAILY, (Reported) Oxybutynin Chloride 15 Mg Tab.osm.24, 15 MG PO DAILY, (Reported) Patient Home Medication List Home Medication List Reviewed: Yes Constitutional: no symptoms reported EENTM: no symptoms reported Respiratory: no symptoms reported Cardiovascular: no symptoms reported Gastrointestinal: no symptoms reported : No Musculoskeletal: see HPI Skin: no symptoms reported Psychiatric/Neurological: No Symptoms Reported Past Zlvzsqm-Xgkaai-Uxsxuh Hx Patient Social History Alcohol Use: Denies Use Recreational Drug Use: No Smoking Status: Never a Smoker 2nd Hand Smoke Exposure: Yes Recent Foreign Travel: No Contact w/Someone Who Travel: No Recent Infectious Disease Expo: No Recent Hopitalizations: No Immunizations Up To Date Tetanus Booster (TDap): Unknown Date of Influenza Vaccine: Jun 09, 2014 Seasonal Allergies Seasonal Allergies: No Past Medical History Surgeries: Yes (knee replacement x3, right mastectomy, back, hand, elbow surgery) Appendectomy, Bladder Surgery, Breast, Eye Surgery, Hysterectomy, Joint Replacement, Orthopedic, Thyroidectomy Respiratory: No Cardiac: Yes Cardiomyopathy, High Cholesterol, Hypertension Neurological: No 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, 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 Genitourinary: Yes Neurogenic Bladder, UTI-Chronic Gastrointestinal: No Musculoskeletal: Yes Arthritis, Chronic Back Pain Endocrine: Yes Hypothyroidsim, Diabetes, Non-Insulin dep Cataract Cancer: Yes Breast Psychosocial: Yes Anxiety, Depression Integumentary: No Blood Disorders: No Family Medical History Arthritis G8 BROTHER BRAIN ANEURYSM 19 MOTHER Hypertension G8 BROTHER G8 BROTHER G8 BROTHER Myocardial infarction 19 FATHER No Pertinent Family Hx Physical Exam Vital Signs Vital Signs - First Documented 02/21/18 00:04 Temp 96.1 Pulse 81 Resp 20 B/P (MAP) 148/63 (91) Pulse Ox 95 O2 Delivery Room Air Capillary Refill : Less Than 3 Seconds Height, Weight, BMI Height: 5'2.00" Weight: 228lbs. 0oz. 103.343585vp; 41.33 BMI Method:Stated General Appearance: No Apparent Distress, WD/WN, Obese HEENT: PERRL/EOMI, Normal ENT Inspection Neck: Normal Inspection Cardiovascular: Regular Rate, Rhythm, No Murmur Respiratory: Lungs Clear, Normal Breath Sounds, No Accessory Muscle Use, No Respiratory Distress Gastrointestinal: Non Tender, Soft Back: Normal Inspection Extremity: Other (No significant pain with range of motion of the right hip including rotation. There is a tender lump deep within the subcutaneous tissue on the right lateral side, near the greater trochanter. 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 Patient was offered ultrasonography for further evaluation versus follow-up with her doctor. She elects to follow up with her doctor, hopefully for referral to have the lesion evaluated better with ultrasound. Hydrocodone was given for pain. Departure Impression Primary Impression: Right hip pain Additional Impression: Lump of right thigh Disposition: 01 HOME, SELF-CARE Condition: Improved Departure-Patient Inst. Decision time for Depature: 00:37 Referrals: NO,LOCAL PHYSICIAN (PCP/Family) Primary Care Physician Patient Instructions: NO INSTRUCTIONS GIVEN Add. Discharge Instructions: You may continue taking naproxen and Tylenol for pain. Use hydrocodone for pain not controlled by [id number] medications. Contact your primary care provider in the morning to seek referral for soft tissue ultrasound and/or referral to a general surgeon. Return to care if you have worsening symptoms. All discharge instructions reviewed with patient and/or family. Voiced understanding. Scripts Hydrocodone/Acetaminophen (Hydrocodone-Acetamin 5-325 mg) 1 Each Tablet 1 EACH PO Q6H, #20 TAB Prov: OMI BARTH MD 02/21/18 OMI BARTH MD Feb 21, 2018 00:39
[2018-02-21] MEDS ORDERED: HYDROcodone/APAP 5 MG/325 MG (LORTAB) TAB PO ONE (00:45)
[2018-02-21 00:46] VITALS: BP 148/63
== END 2018-02-21 00:46 | disposition home or self-care (01) ==
LOC: EDUNIT# 23:17 → ER 23:19
DX: M25.551 Pain in right hip (principal); R22.2 Localized swelling, mass and lump, trunk; I10 Essential (primary) hypertension; E78.00 Pure hypercholesterolemia, unspecified; E03.9 Hypothyroidism, unspecified; E11.9 Type 2 diabetes mellitus without complications; F41.9 Anxiety disorder, unspecified; F32.9 Major depressive disorder, single episode, unspecified; Z85.3 Personal history of malignant neoplasm of breast; Z87.440 Personal history of urinary (tract) infections; Z88.1 Allergy status to other antibiotic agents; Z79.4 Long term (current) use of insulin; Z90.49 Acquired absence of other specified parts of digestive tract; Z90.710 Acquired absence of both cervix and uterus
CPT/HCPCS: 99283

== ENCOUNTER → 2018-05-22 | Emergency (ER) | payer MEDICARE, MEDICAID ==
[~2018-05-22] VITALS: Ht 157.5 cm; Wt 108.0 kg
[~2018-05-22] MED LIST changes: +HYDR-3812 PO; +METF-399; +METF-399 PO; -METF10002; -METF10002 PO
--- OUTSIDE RECORDS SUMMARY | 2018-05-22 14:37 | XMS REPORT | Continuity of Care Document ---
Author Author [facility] Organization [facility] Address Unknown Phone Unavailable Allergies Active Description Code Type Severity Reaction Onset Reported/Identified Relationship to Patient Clinical Status Yes cephalexin [id number] Drug Allergy Moderate RASH 01/19/2016 Medications There is no data. Problems Date Dx Coded Attending Type Code Diagnosis Diagnosed By 12/20/2013 RAN WILLINGHAM Ot 722.0 CERVICAL DISC DISPLACMNT 12/20/2013 RAN WILLINGHAM Ot 723.1 CERVICALGIA 12/20/2013 RAN WILLINGHAM Ot 728.85 SPASM OF MUSCLE 07/19/2014 LYNN VILLAFANA APRN Ot 786.50 CHEST PAIN NOS 07/19/2014 LYNN VILLAFANA APRN Ot 786.52 PAINFUL RESPIRATION 01/25/2015 QUINTON CLARKE DO Ot 372.72 CONJUNCTIVAL HEMORRHAGE 01/25/2015 QUINTON CLARKE DO Ot 379.91 PAIN IN OR AROUND EYE [...] Ot 584.9 ACUTE RENAL FAILURE, UNSPECIFIED 02/10/2015 VIKTOR ZIMMER MD Ot 599.0 URIN TRACT INFECTION [...] LEFT KNEE, INITIAL ENCOUNTE 02/09/2016 MELBA REHMAN MD Ot W01.0XXA FALL SAME LEV FROM SLIP/TRIP W/O STRIKE 02/09/2016 MELBA REHMAN MD Ot Y92.[address] IN SINGLE-FAMILY (PRIVATE) HO 02/09/2016 MELBA REHMAN MD, Ot Y99.8 [...] M54.42 LUMBAGO WITH SCIATICA, LEFT SIDE 06/27/2016 RNA WILLINGHAM Ot Z79.4 DATA MODELING SPECIALIST (CURRENT) USE OF INSULIN 06/27/2016 RAN WILLINGHAM Ot Z79.899 OTHER DATA MODELING SPECIALIST (CURRENT) DRUG THERAPY 06/29/2016 RAN WILLINGHAM Ot E11.9 TYPE 2 DIABETES MELLITUS WITHOUT COMPLIC 06/29/2016 RAN WILLINGHAM Ot I10 ESSENTIAL (PRIMARY) HYPERTENSION 06/29/2016 RAN WILLINGHAM Ot M25.552 PAIN IN LEFT HIP 06/29/2016 RAN WILLINGHAM Ot M54.42 LUMBAGO WITH SCIATICA, LEFT SIDE 06/29/2016 RAN WILLINGHAM Ot Z79.4 DATA MODELING SPECIALIST (CURRENT) USE OF INSULIN 06/29/2016 RAN WILLINGHAM Ot Z79.899 OTHER ASSISTED (CURRENT) DRUG THERAPY 10/09/2016 RAN WILLINGHAM Ot E11.9 TYPE 2 DIABETES MELLITUS WITHOUT COMPLIC 10/09/2016 RAN WILLINGHAM Ot I10 ESSENTIAL (PRIMARY) HYPERTENSION 10/09/2016 RAN WILLINGHAM Ot L02.413 CUTANEOUS ABSCESS OF RIGHT UPPER LIMB 10/09/2016 RAN WILLINGHAM Ot Z23 ENCOUNTER FOR IMMUNIZATION 10/09/2016 RAN WILLINGHAM Ot Z79.4 ASSISTED (CURRENT) USE OF INSULIN 10/09/2016 RAN WILLINGHAM Ot Z79.899 OTHER DATA MODELING SPECIALIST (CURRENT) DRUG THERAPY 10/11/2016 RAN WILLINGHAM Ot E11.9 TYPE 2 DIABETES MELLITUS WITHOUT COMPLIC 10/11/2016 RAN WILLINGHAM Ot I10 ESSENTIAL (PRIMARY) HYPERTENSION 10/11/2016 RAN WILLINGHAM Ot L02.413 CUTANEOUS ABSCESS OF RIGHT UPPER LIMB 10/11/2016 RAN WILLINGHAM Ot Z23 ENCOUNTER FOR IMMUNIZATION 10/11/2016 RAN WILLINGHAM Ot Z79.4 DATA MODELING SPECIALIST (CURRENT) USE OF INSULIN 10/11/2016 RAN WILLINGHAM Ot Z79.899 OTHER ASSISTED (CURRENT) DRUG THERAPY 10/14/2016 RAN WILLINGHAM Ot E11.9 TYPE 2 DIABETES MELLITUS WITHOUT COMPLIC 10/14/2016 RAN WILLINGHAM Ot I10 ESSENTIAL (PRIMARY) HYPERTENSION 10/14/2016 RNA WILLINGHAM Ot L02.413 CUTANEOUS ABSCESS OF RIGHT UPPER LIMB 10/14/2016 RAN WILLINGHAM Ot Z23 ENCOUNTER FOR IMMUNIZATION 10/14/2016 RAN WILLINGHAM Ot Z79.4 ASSISTED (CURRENT) USE OF INSULIN 10/14/2016 RAN WILLINGHAM Ot Z79.899 OTHER ASSISTED (CURRENT) DRUG THERAPY 11/06/2016 OMI BARTH MD Ot E11.9 TYPE 2 DIABETES MELLITUS WITHOUT COMPLIC 11/06/2016 OMI BARHT MD, Ot I10 ESSENTIAL (PRIMARY) HYPERTENSION 11/06/2016 OMI BARTH MD Ot M25.562 PAIN IN LEFT KNEE 11/06/2016 OMI BARTH MD, Ot M79.662 PAIN IN LEFT LOWER LEG 11/06/2016 OMI BARTH MD, Ot S89.92XA UNSPECIFIED INJURY OF LEFT LOWER LEG, IN 11/06/2016 OMI BARTH MD Ot W07.XXXA FALL FROM CHAIR, INITIAL ENCOUNTER 11/06/2016 OMI BARTH MD Ot Y99.8 OTHER EXTERNAL CAUSE STATUS 11/06/2016 OMI BARTH MD, Ot Z79.4 DATA MODELING SPECIALIST (CURRENT) USE OF INSULIN 11/06/2016 OMI BARTH MD Ot Z79.899 OTHER ASSISTED (CURRENT) DRUG THERAPY 11/06/2016 OMI BARTH MD, Ot Z85.3 PERSONAL HISTORY OF MALIGNANT NEOPLASM O 11/06/2016 OMI BARTH MD Ot Z90.12 ACQUIRED ABSENCE OF LEFT BREAST AND NIPP 11/06/2016 OMI BARTH MD Ot Z96.652 PRESENCE OF LEFT ARTIFICIAL KNEE JOINT 11/08/2016 OMI BARTH MD Ot E11.9 TYPE 2 DIABETES MELLITUS WITHOUT COMPLIC 11/08/2016 OMI BARTH MD Ot I10 ESSENTIAL (PRIMARY) HYPERTENSION 11/08/2016 OMI BARTH MD, Ot S89.92XA UNSPECIFIED INJURY OF LEFT LOWER LEG, IN 11/08/2016 OMI BARTH MD Ot W07.XXXA FALL FROM CHAIR, INITIAL ENCOUNTER 11/08/2016 OMI BARTH MD Ot Y99.8 OTHER EXTERNAL CAUSE STATUS 11/08/2016 OMI BARTH MD Ot Z79.4 DATA MODELING SPECIALIST (CURRENT) USE OF INSULIN 11/08/2016 OMI BARTH MD Ot Z79.899 OTHER ASSISTED (CURRENT) DRUG THERAPY 11/08/2016 OMI BARTH MD Ot Z85.3 PERSONAL HISTORY OF MALIGNANT NEOPLASM O 11/08/2016 OMI BARTH MD Ot Z90.12 ACQUIRED ABSENCE OF LEFT BREAST AND NIPP 11/08/2016 OMI BARTH MD Ot Z96.652 PRESENCE OF LEFT ARTIFICIAL KNEE JOINT 11/30/2016 OMI BARTH MD Ot E11.9 TYPE 2 DIABETES MELLITUS WITHOUT COMPLIC 11/30/2016 OMI BARTH MD Ot I10 ESSENTIAL (PRIMARY) HYPERTENSION 11/30/2016 OMI BARTH MD Ot M25.562 PAIN IN LEFT KNEE 11/30/2016 OMI BARTH MD Ot S89.92XA UNSPECIFIED INJURY OF LEFT LOWER LEG, IN 11/30/2016 OMI BARTH MD Ot W07.XXXA FALL FROM CHAIR, INITIAL ENCOUNTER 11/30/2016 OMI BARTH MD Ot Y99.8 OTHER EXTERNAL CAUSE STATUS 11/30/2016 OMI BARTH MD Ot Z79.4 DATA MODELING SPECIALIST (CURRENT) USE OF INSULIN 11/30/2016 OMI BATRH MD Ot Z79.899 OTHER ASSISTED (CURRENT) DRUG THERAPY 11/30/2016 OMI BARTH MD Ot Z85.3 PERSONAL HISTORY OF MALIGNANT NEOPLASM O 11/30/2016 OMI BARTH MD Ot Z90.12 ACQUIRED ABSENCE OF LEFT BREAST AND NIPP 11/30/2016 OMI BARTH MD Ot Z96.652 PRESENCE OF LEFT ARTIFICIAL KNEE JOINT 12/01/2016 OMI BARTH MD Ot E11.9 TYPE 2 DIABETES MELLITUS WITHOUT COMPLIC 12/01/2016 OMI BARTH MD Ot I10 ESSENTIAL (PRIMARY) HYPERTENSION 12/01/2016 OMI BARTH MD Ot M25.562 PAIN IN LEFT KNEE 12/01/2016 OMI BARTH MD Ot M79.662 PAIN IN LEFT LOWER LEG 12/01/2016 OMI BARTH MD, Ot S89.92XA UNSPECIFIED INJURY OF LEFT LOWER LEG, IN 12/01/2016 OMI BARTH MD, Ot W07.XXXA FALL FROM CHAIR, INITIAL ENCOUNTER 12/01/2016 OMI BARTH MD, Ot Y99.8 OTHER EXTERNAL CAUSE STATUS 12/01/2016 OMI BARTH MD, Ot Z79.4 DATA MODELING SPECIALIST (CURRENT) USE OF INSULIN 12/01/2016 OMI BARTH MD, Ot Z79.899 OTHER DATA MODELING SPECIALIST (CURRENT) DRUG THERAPY 12/01/2016 MOI BARTH MD, Ot Z85.3 PERSONAL HISTORY OF MALIGNANT NEOPLASM O 12/01/2016 OMI BARTH MD, Ot Z90.12 ACQUIRED ABSENCE OF LEFT BREAST AND NIPP 12/01/2016 OMI BARTH MD, Ot Z96.652 PRESENCE OF LEFT ARTIFICIAL KNEE JOINT 01/25/2017 OMI BARTH MD Ot E03.9 HYPOTHYROIDISM, UNSPECIFIED 01/25/2017 OMI BARTH MD Ot E11.9 TYPE 2 DIABETES MELLITUS WITHOUT COMPLIC 01/25/2017 OMI BARTH MD Ot F41.8 OTHER SPECIFIED ANXIETY DISORDERS 01/25/2017 OMI BARTH MD Ot G89.29 OTHER CHRONIC PAIN 01/25/2017 OMI BARTH MD, Ot I10 ESSENTIAL (PRIMARY) HYPERTENSION 01/25/2017 OMI BARTH MD Ot M25.511 PAIN IN RIGHT SHOULDER 01/25/2017 OMI BARTH MD Ot M46.90 UNSPECIFIED INFLAMMATORY SPONDYLOPATHY, 01/25/2017 OMI BARTH MD Ot M54.6 PAIN IN THORACIC SPINE 01/25/2017 OMI BARTH MD Ot Z79.4 ASSISTED (CURRENT) USE OF INSULIN 01/25/2017 TAB CHIN, OMI Drew Ot Z98.890 OTHER SPECIFIED POSTPROCEDURAL STATES 05/16/2017 LYNN VILLAFANA APRN Ot E03.9 HYPOTHYROIDISM, UNSPECIFIED 05/16/2017 LYNN VILLAFANA OUTSIDE MACHINIST APPRENTICE Ot E11.9 TYPE 2 DIABETES MELLITUS WITHOUT COMPLIC 05/16/2017 LYNN VILLAFANA APRN Ot E78.00 PURE HYPERCHOLESTEROLEMIA, UNSPECIFIED 05/16/2017 LYNN VILLAFANA APRN Ot F32.9 MAJOR DEPRESSIVE DISORDER, SINGLE EPISOD 05/16/2017 LYNN VILLAFANA APRN Ot F41.9 ANXIETY DISORDER, UNSPECIFIED 05/16/2017 LYNN VILLAFANA APRN Ot G57.01 LESION OF SCIATIC NERVE, RIGHT LOWER YAO 05/16/2017 LYNN VILLAFANA APRN Ot I10 ESSENTIAL (PRIMARY) HYPERTENSION 05/16/2017 LYNN VILLAFANA APRN Ot M79.604 PAIN IN RIGHT LEG 05/16/2017 LYNN VILLAFANA APRN Ot Z77.22 CNTCT W AND EXPSR TO ENVIRON TOBACCO SMO 05/16/2017 LYNN VILLAFANA OUTSIDE MACHINIST APPRENTICE Ot Z79.4 ASSISTED (CURRENT) USE OF INSULIN 05/16/2017 LYNN VILLAFANA APRN Ot Z85.3 PERSONAL HISTORY OF MALIGNANT NEOPLASM O 05/16/2017 LYNN VILLAFANA APRN Ot Z90.49 ACQUIRED ABSENCE OF OTHER SPECIFIED PART 05/16/2017 LYNN VILLAFANA APRN Ot Z90.710 ACQUIRED ABSENCE OF BOTH CERVIX AND UTER 05/16/2017 LYNN VILLAFANA APRN Ot Z90.89 ACQUIRED ABSENCE OF OTHER ORGANS 05/23/2017 LYNN VILLAFANA APRN Ot E03.9 HYPOTHYROIDISM, UNSPECIFIED 05/23/2017 LYNN VILLAFANA APRN Ot E11.9 TYPE 2 DIABETES MELLITUS WITHOUT COMPLIC 05/23/2017 LYNN VILLAFANA APRN Ot E78.00 PURE HYPERCHOLESTEROLEMIA, UNSPECIFIED 05/23/2017 LYNN VILLAFANA APRN Ot F32.9 MAJOR DEPRESSIVE DISORDER, SINGLE EPISOD 05/23/2017 LYNN VILLAFANA APRN Ot F41.9 ANXIETY DISORDER, UNSPECIFIED 05/23/2017 LYNN VILLAFANA APRN Ot G57.01 LESION OF SCIATIC NERVE, RIGHT LOWER YAO 05/23/2017 LYNN VLILAFANA APRN Ot I10 ESSENTIAL (PRIMARY) HYPERTENSION 05/23/2017 LYNN VILLAFANA APRN Ot M79.604 PAIN IN RIGHT LEG 05/23/2017 LYNN VILLAFANA APRN Ot Z77.22 CNTCT W AND EXPSR TO ENVIRON TOBACCO SMO 05/23/2017 LYNN VILLAFANA APRN Ot Z79.4 DATA MODELING SPECIALIST (CURRENT) USE OF INSULIN 05/23/2017 LYNN VILLAFANA APRN Ot Z85.3 PERSONAL HISTORY OF MALIGNANT NEOPLASM O 05/23/2017 LYNN VILLAFANA APRN Ot Z90.49 ACQUIRED ABSENCE OF OTHER SPECIFIED PART 05/23/2017 LYNN VILLAFANA APRN Ot Z90.710 ACQUIRED ABSENCE OF BOTH CERVIX AND UTER 05/23/2017 LYNN VILLAFANA APRN Ot Z90.89 ACQUIRED ABSENCE OF OTHER ORGANS 02/10/2018 JESSICA SOSA MD Ot E03.9 HYPOTHYROIDISM, UNSPECIFIED 02/10/2018 JESSICA SOSA MD Ot E11.9 TYPE 2 DIABETES MELLITUS WITHOUT COMPLIC 02/10/2018 JESSICA SOSA MD Ot E78.00 PURE HYPERCHOLESTEROLEMIA, UNSPECIFIED 02/10/2018 JESSICA SOSA MD Ot F32.9 MAJOR DEPRESSIVE DISORDER, SINGLE EPISOD 02/10/2018 JESSICA SOSA MD Ot F41.9 ANXIETY DISORDER, UNSPECIFIED 02/10/2018 JESSICA SOSA MD Ot H10.9 UNSPECIFIED CONJUNCTIVITIS 02/10/2018 JESSICA SOSA MD Ot H57.8 OTHER SPECIFIED DISORDERS OF EYE AND ADN 02/10/2018 JESSICA SOSA MD Ot H65.93 UNSPECIFIED NONSUPPURATIVE OTITIS MEDIA, 02/10/2018 JESSICA SOSA MD Ot I10 ESSENTIAL (PRIMARY) HYPERTENSION 02/10/2018 JESSICA SOSA MD Ot I42.9 CARDIOMYOPATHY, UNSPECIFIED 02/10/2018 JESSICA SOSA MD Ot Z79.4 DATA MODELING SPECIALIST (CURRENT) USE OF INSULIN 02/10/2018 JESSICA SOSA MD Ot Z82.49 FAMILY HX OF ISCHEM HEART DIS AND OTH DI 02/10/2018 JESSICA SOSA MD Ot Z85.3 PERSONAL HISTORY OF MALIGNANT NEOPLASM O 02/10/2018 JESSICA SOSA MD Ot Z87.440 PERSONAL HISTORY OF URINARY (TRACT) INFE 02/10/2018 JESSICA SOSA MD Ot Z87.448 PERSONAL HISTORY OF OTHER DISEASES OF UR 02/10/2018 JESSICA SOSA MD Ot Z88.1 ALLERGY STATUS TO OTHER ANTIBIOTIC AGENT 02/10/2018 JESSICA SOSA MD Ot Z90.11 ACQUIRED ABSENCE OF RIGHT BREAST AND NIP 02/10/2018 JESSICA SOSA MD Ot Z90.710 ACQUIRED ABSENCE OF BOTH CERVIX AND UTER 02/10/2018 JESSICA SOSA MD Ot Z90.89 ACQUIRED ABSENCE OF OTHER ORGANS 02/12/2018 JESSICA SOSA MD Ot E03.9 HYPOTHYROIDISM, UNSPECIFIED 02/12/2018 JESSICA SOSA MD Ot E11.9 TYPE 2 DIABETES MELLITUS WITHOUT COMPLIC 02/12/2018 JESSICA SOSA MD Ot E78.00 PURE HYPERCHOLESTEROLEMIA, UNSPECIFIED 02/12/2018 JESSICA SOSA MD Ot F32.9 MAJOR DEPRESSIVE DISORDER, SINGLE EPISOD 02/12/2018 JESSICA SOSA MD Ot F41.9 ANXIETY DISORDER, UNSPECIFIED 02/12/2018 JESSICA SOSA MD Ot H10.9 UNSPECIFIED CONJUNCTIVITIS 02/12/2018 JESSICA SOSA MD Ot H57.8 OTHER SPECIFIED DISORDERS OF EYE AND ADN 02/12/2018 JESSICA SOSA MD Ot H65.93 UNSPECIFIED NONSUPPURATIVE OTITIS MEDIA, 02/12/2018 JESSICA SOSA MD Ot I10 ESSENTIAL (PRIMARY) HYPERTENSION 02/12/2018 JESSICA SOSA MD Ot I42.9 CARDIOMYOPATHY, UNSPECIFIED 02/12/2018 JESSICA SOSA MD Ot Z79.4 ASSISTED (CURRENT) USE OF INSULIN 02/12/2018 JESSICA SOSA MD Ot Z82.49 FAMILY HX OF ISCHEM HEART DIS AND OTH DI 02/12/2018 JESSICA SOSA MD Ot Z85.3 PERSONAL HISTORY OF MALIGNANT NEOPLASM O 02/12/2018 JESSICA SOSA MD Ot Z87.440 PERSONAL HISTORY OF URINARY (TRACT) INFE 02/12/2018 JESSICA SOSA MD Ot Z87.448 PERSONAL HISTORY OF OTHER DISEASES OF UR 02/12/2018 JESSICA SOSA MD Ot Z88.1 ALLERGY STATUS TO OTHER ANTIBIOTIC AGENT 02/12/2018 JESSICA SOSA MD, Ot Z90.11 ACQUIRED ABSENCE OF RIGHT BREAST AND NIP 02/12/2018 JESSICA SOSA MD Ot Z90.710 ACQUIRED ABSENCE OF BOTH CERVIX AND UTER 02/12/2018 JESSICA SOSA MD Ot Z90.89 ACQUIRED ABSENCE OF OTHER ORGANS 02/22/2018 OMI BARTH MD, Ot E03.9 HYPOTHYROIDISM, UNSPECIFIED 02/22/2018 OMI BARTH MD, Ot E11.9 TYPE 2 DIABETES MELLITUS WITHOUT COMPLIC 02/22/2018 OMI BARTH MD, Ot E78.00 PURE HYPERCHOLESTEROLEMIA, UNSPECIFIED 02/22/2018 OMI BARTH MD, Ot F32.9 MAJOR DEPRESSIVE DISORDER, SINGLE EPISOD 02/22/2018 OMI BARTH MD, Ot F41.9 ANXIETY DISORDER, UNSPECIFIED 02/22/2018 OMI BARTH MD, Ot I10 ESSENTIAL (PRIMARY) HYPERTENSION 02/22/2018 OMI BARTH MD, Ot M25.551 PAIN IN RIGHT HIP 02/22/2018 OMI BARTH MD, Ot R22.2 LOCALIZED SWELLING, MASS AND LUMP, TRUNK 02/22/2018 OMI BARTH MD, Ot Z79.4 ASSISTED (CURRENT) USE OF INSULIN 02/22/2018 OMI BARTH MD, Ot Z85.3 PERSONAL HISTORY OF MALIGNANT NEOPLASM O 02/22/2018 OMI BARTH MD, Ot Z87.440 PERSONAL HISTORY OF URINARY (TRACT) INFE 02/22/2018 OMI BARTH MD, Ot Z88.1 ALLERGY STATUS TO OTHER ANTIBIOTIC AGENT 02/22/2018 OMI BARTH MD, Ot Z90.49 ACQUIRED ABSENCE OF OTHER SPECIFIED PART 02/22/2018 OMI BARTH MD, Ot Z90.710 ACQUIRED ABSENCE OF BOTH CERVIX AND UTER Procedures There is no data. Results Test Result Range Gram stain microscopy - 10/09/16 21:25 GRAM STAIN RESULT NO BACTERIA NRG Bacteria identification in wound by culture - 10/09/16 21:25 Bacteria identification in wound by culture [id number] NRG FREE TEXT EXTERNAL SENSITIVITY REPORTED 10/11/16 7:35 NRG QUANTITY OF GROWTH Moderate Growth NRG MRSA AGAR Screening test for MRSA is NEGATIVE (Final to follow) NRG CALL POSITIVES (F1 HELP) CALLED TO VERÓNICA GALLAGHER 10/11/16 7:45 BY [facility] Bacterial susceptibility panel - 10/09/16 21:25 Oxacillin susceptibility test by minimum inhibitory concentration > = NRG Gentamicin susceptibility test by minimum inhibitory concentration < = NRG Clindamycin susceptibility test by minimum inhibitory [...] 01:08 Blood leukocytes automated count (number/volume) 6.2 10*3/uL 4.3-11.0 Blood erythrocytes automated count (number/volume) 3.16 10*6/uL 4.35-5.85 Venous blood hemoglobin measurement (mass/volume) 8.8 [...] Automated blood platelet mean volume measurement 10.8 [foz_us] 7.4-10.4 Automated blood neutrophils/100 leukocytes 62 % [...] plasma C reactive protein measurement (mass/volume) 1.79 mg /dL 0.00-0.50 Encounters ACCT No. Visit Date/Time Discharge Status Pt. Type Provider Facility Loc./Unit Complaint [id number] 02/20/2018 23:19:00 02/21/2018 00:46:00 DIS Outpatient OMI BARTH MD [facility] ER R HIP PAIN [id number] 02/10/2018 13:27:00 02/10/2018 14:19:00 DIS Emergency JESSICA SOSA MD [facility] ER BLOOD IN R EYE,NOW HAS KNOT ON FOREHEAD [id number] 05/16/2017 19:31:00 05/16/2017 20:33:00 DIS Emergency LYNN VILLAFANA APRN [facility] ER RT LEG/HIP PAIN [id number] 01/25/2017 22:18:00 01/25/2017 23:52:00 DIS Emergency OMI BARTH MD [facility] ER RT SHOULDER PAIN [id number] 11/06/2016 00:33:00 11/06/2016 02:43:00 DIS Emergency OMI BARTH MD [facility] ER FALL INJ L LEG [id number] 10/09/2016 19:10:00 10/09/2016 21:41:00 DIS Emergency RAN WILLINGHAM [facility] ER POSS BITE [id number] 06/27/2016 16:27:00 06/27/2016 17:30:00 DIS Emergency RAN WILLINGHAM [facility] ER L HIP/LEG PAIN [id number] 02/09/2016 10:13:00 02/09/2016 11:18:00 DIS Emergency MELBA REHMAN MD [facility] ER FALL/LEFT KNEE PAIN [id number] 01/19/2016 19:48:00 01/19/2016 20:39:00 DIS Emergency RAN WILLINGHAM [facility] ER L FOOT PAIN [id number] 02/08/2015 23:50:00 02/10/2015 14:00:00 DIS Inpatient GORAN CHIN, VIKTOR Reese [facility] SURGICAL ACUTE RENAL FAILURE; UTI [id number] 01/24/2015 23:45:00 01/25/2015 00:20:00 DIS Emergency QUINTON CLARKE DO [facility] ER L EYE PAIN,SWELLING [id number] 07/19/2014 10:37:00 07/19/2014 12:02:00 DIS Emergency LYNN VILLAFANA APRN [facility] ER LEFT RIB/SHOULDER PAIN [id number] 12/20/2013 16:58:00 12/20/2013 18:52:00 DIS Emergency RAN WILLINGHAM [facility] ER NECK PAIN
--- NOTE | 2018-05-22 15:53 | Diagnostic Imaging Report ---
INDICATION: Left foot pain. TIME OF EXAM: 03:50 p.m. FINDINGS: Three views of the left foot were obtained. Metatarsals appear intact. Phalanges are intact. Mid foot and hind foot are unremarkable apart from chronic enthesopathy of the Achilles tendon insertion as well as a plantar calcaneal spur. No fractures are seen. IMPRESSION: Chronic changes. No acute bony abnormality is detected. Dictated by: Dictated on workstation # [id number]
--- NOTE | 2018-05-22 16:02 | Diagnostic Imaging Report ---
INDICATION: Left ankle pain. TIME OF EXAM: 03:45 p.m. FINDINGS: Three views of the left ankle were obtained. There is generalized demineralization. Ankle mortise is maintained. Talar dome is smooth. No fracture or dislocation is seen. There is enthesopathy at the Achilles tendon insertion on the calcaneus. Large plantar calcaneal spur is seen. There appears to be some generalized soft tissue swelling. IMPRESSION: Soft tissue swelling and chronic changes. No acute bony abnormality is detected. Dictated by: Dictated on workstation # [id number]
--- NOTE | 2018-05-22 16:26 | Diagnostic Imaging Report ---
PROCEDURE: US left lower extremity venous. TECHNIQUE: Multiple real-time grayscale images were obtained over the left lower extremity in various projections. Additional duplex Doppler and color Doppler images were also obtained. INDICATION: Left lower extremity edema with Left foot pain EXAMINATION: Grayscale and color Doppler evaluation of the deep veins of the left lower extremity were performed with waveform analysis. FINDINGS: Continuous venous flow is present. No intraluminal filling defect is identified. There is normal compressibility and response to augmentation. No abnormal perivascular fluid collection is identified. IMPRESSION: No ultrasound evidence of left lower extremity deep venous thrombosis. Dictated by: Dictated on workstation # [id number]
[2018-05-22 16:36] LABS: BASOPHILS % (AUTO) 0 % (0-10); EOSINOPHILS # (AUTO) 0.2 10^3/uL (0.0-0.3); EOSINOPHILS % (AUTO) 3 % (0-10); HEMATOCRIT 33 % (35-52); HEMOGLOBIN 10.4 G/DL (11.5-16.0); LYMPHOCYTES # (AUTO) 0.8 X 10^3 (1.0-4.0); LYMPHOCYTES % (AUTO) 10 % (12-44); MEAN CORPUSCULAR HEMOGLOBIN 30 PG (25-34); MEAN CORPUSCULAR HGB CONC 32 G/DL (32-36); MEAN CORPUSCULAR VOLUME 96 FL (80-99); MEAN PLATELET VOLUME 10.4 FL (7.4-10.4); MONOCYTES # (AUTO) 0.6 X 10^3 (0.0-1.0); MONOCYTES % (AUTO) 8 % (0-12); NEUTROPHILS # (AUTO) 5.8 X 10^3 (1.8-7.8); NEUTROPHILS % (AUTO) 78 % (42-75); PLATELET COUNT 187 10^3/uL (130-400); RED BLOOD COUNT 3.42 10^6/uL (4.35-5.85); RED CELL DISTRIBUTION WIDTH 14.4 % (10.0-14.5); WHITE BLOOD COUNT 7.5 10^3/uL (4.3-11.0)
--- NOTE | 2018-05-22 16:41 | ED Lower Extremity ---
General Chief Complaint: Lower Extremity Stated Complaint: LEFT FOOT PAIN Nursing Triage Note: PT PRESENTS TO ER WITH COMPLAINT OF LEFT FOOT PAIN. STATES SHE CANNONT WALK ON IT. DENIES INJURY Nursing Sepsis Screen: No Definite Risk Source: patient Exam Limitations: no limitations History of Present Illness Date Seen by Provider: May 22, 2018 Time Seen by Provider: 15:40 Initial Comments Patient is a 72-year-old female who presents to the emergency room with complaints of left foot pain that started yesterday. She can not recall injury at this time but reports that it is tender to touch and causes increased pain on ambulation. Significant calf tenderness on exam. Onset: yesterday Pain/Injury Location: left foot Method of Injury: unknown Modifying Factors: Worse With Movement Allergies and Home Medications Allergies Coded Allergies: cephalexin (Verified Allergy, Intermediate, RASH, 01/19/16) Home Medications Alprazolam 0.5 Mg Tablet, 0.5 MG PO BID PRN for AGITATION, (Reported) Amlodipine Besylate 10 Mg Tablet, 10 MG PO DAILY, (Reported) Atorvastatin Calcium 10 Mg Tablet, 10 MG PO HS, (Reported) Cholecalciferol 5,000 Unit Capsule, 5,000 UNIT PO DAILY, (Reported) Ciprofloxacin HCl 5 Ml Drops, 2 DROPS OP TID 3 Drops Each Ear Prescribed by: JESSICA SOSA on 02/10/18 1409 Cyclobenzaprine HCl 5 Mg Tablet, 5 MG PO TID PRN for PAIN-MODERATE TO SEVERE Prescribed by: LYNN VILLAFANA on 05/16/17 1946 Hydrocodone Bit/Acetaminophen 1 Each Tablet, 1 EACH PO Q6H PRN for PAIN Prescribed by: OMI BORRERO on 11/06/16 0238 Hydrocodone Bit/Acetaminophen 1 Tab Tab, 1 EACH PO Q4-6HR PRN for PAIN-MODERATE Prescribed by: KOTA WHATLEY on 05/22/18 1735 Hydrocodone/Acetaminophen 1 Each Tablet, 1 EACH PO Q6H Prescribed by: OMI BORRERO on 02/21/18 0039 Insulin Glargine,Hum.rec.anlog 100 Unit/1 Ml Cartridge, 20 UNIT SQ HS, (Reported ) Oxybutynin Chloride 15 Mg Tab.osm.24, 15 MG PO DAILY, (Reported) Patient Home Medication List Home Medication List Reviewed: Yes Review of Systems Constitutional: see HPI; No chills, No fever Musculoskeletal: see HPI, joint pain (left foot pain) All Other Systems Reviewed Negative Unless Noted: Yes Past Wfydvcu-Jliwuk-Qzlrez Hx Past Med/Social Hx: Reviewed Nursing Past Med/Soc Hx Patient Social History Alcohol Use: Denies Use Recreational Drug Use: No Smoking Status: Never a Smoker 2nd Hand Smoke Exposure: Yes Recent Foreign Travel: No Contact w/Someone Who Travel: No Recent Infectious Disease Expo: No Recent Hopitalizations: No Immunizations Up To Date Tetanus Booster (TDap): Unknown Date of Influenza Vaccine: Jun 09, 2014 Seasonal Allergies Seasonal Allergies: No Past Medical History Surgeries: Yes (knee replacement x3, right mastectomy, back, hand, elbow surgery) Appendectomy, Bladder Surgery, Breast, Eye Surgery, Hysterectomy, Joint Replacement, Orthopedic, Thyroidectomy Respiratory: No Cardiac: Yes Cardiomyopathy, High Cholesterol, Hypertension Neurological: No 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, 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 Genitourinary: Yes Neurogenic Bladder, UTI-Chronic Gastrointestinal: No Musculoskeletal: Yes Arthritis, Chronic Back Pain Endocrine: Yes Hypothyroidsim, Diabetes, Non-Insulin dep Cataract Cancer: Yes Breast Psychosocial: Yes Anxiety, Depression Integumentary: No Blood Disorders: No Family Medical History Reviewed Nursing Family Hx Arthritis G8 BROTHER BRAIN ANEURYSM 19 MOTHER Hypertension G8 BROTHER G8 BROTHER G8 BROTHER Myocardial infarction 19 FATHER No Pertinent Family Hx Physical Exam Vital Signs Vital Signs - First Documented 05/22/18 14:45 Pulse 74 Resp 20 B/P (MAP) 155/90 (111) Pulse Ox 95 O2 Delivery Room Air Capillary Refill : Less Than 3 Seconds Height, Weight, BMI Height: 5'2.00" Weight: 238lbs. 0oz. 107.104382it; 41.33 BMI Method:Stated General Appearance: WD/WN, no apparent distress Cardiovascular: normal peripheral pulses, regular rate, rhythm, no edema, no gallop, no JVD, no murmur Respiratory: chest non-tender, lungs clear, normal breath sounds, no respiratory distress, no accessory muscle use Legs: left leg other Feet: left foot normal inspection, left foot pain, left foot soft tissue tenderness Neurologic/Tendon: normal sensation, normal motor functions, normal tendon functions, responds to pain, no evidence tendon injury Neurologic/Psychiatric: alert, normal mood/affect, oriented x 3 Skin: normal color, warm/dry Progress/Results/Core Measures Results/Orders Lab Results Laboratory Tests Test 05/22/18 16:27 Range/Units White Blood Count 7.5 4.3-11.0 10^3/uL Red Blood Count 3.42 L 4.35-5.85 10^6/uL Hemoglobin 10.4 L 11.5-16.0 G/DL Hematocrit 33 L 35-52 % Mean Corpuscular Volume 96 80-99 FL Mean Corpuscular Hemoglobin 30 25-34 PG Mean Corpuscular Hemoglobin Concent 32 32-36 G/DL Red Cell Distribution Width 14.4 10.0-14.5 % Platelet Count 187 130-400 10^3/uL Mean Platelet Volume 10.4 7.4-10.4 FL Neutrophils (%) (Auto) 78 H 42-75 % Lymphocytes (%) (Auto) 10 L 12-44 % Monocytes (%) (Auto) 8 0-12 % Eosinophils (%) (Auto) 3 0-10 % Basophils (%) (Auto) 0 0-10 % Neutrophils # (Auto) 5.8 1.8-7.8 X 10^3 Lymphocytes # (Auto) 0.8 L 1.0-4.0 X 10^3 Monocytes # (Auto) 0.6 0.0-1.0 X 10^3 Eosinophils # (Auto) 0.2 0.0-0.3 10^3/uL Basophils # (Auto) 0.0 0.0-0.1 10^3/uL Prothrombin Time 12.6 12.2-14.7 SEC INR Comment 0.9 0.8-1.4 Activated Partial Thromboplast Time 26 24-35 SEC D-Dimer 1.06 H 0.00-0.49 UG/ML Sodium Level 141 135-145 MMOL/L Potassium Level 4.1 3.6-5.0 MMOL/L Chloride Level 107 98-107 MMOL/L Carbon Dioxide Level 24 21-32 MMOL/L Anion Gap 10 5-14 MMOL/L Blood Urea Nitrogen 22 H 7-18 MG/DL Creatinine 1.02 0.60-1.30 MG/DL Estimat Glomerular Filtration Rate 53 BUN/Creatinine Ratio 22 Glucose Level 65 L 70-105 MG/DL Calcium Level 9.3 8.5-10.1 MG/DL Corrected Calcium 9.2 8.5-10.1 MG/DL Total Bilirubin 0.9 0.1-1.0 MG/DL Aspartate Amino Transf (AST/SGOT) 15 5-34 U/L Alanine Aminotransferase (ALT/SGPT) 15 0-55 U/L Alkaline Phosphatase 77 40-136 U/L Total Protein 7.2 6.4-8.2 GM/DL Albumin 4.1 3.2-4.5 GM/DL My Orders Orders - KOTA WHATLEY Foot, Left, 3 Views (05/22/18 15:05) Ankle, Left, 3 Views (05/22/18 15:05) Comprehensive Metabolic Panel (05/22/18 15:41) Cbc With Automated Diff (05/22/18 15:41) Protime With Inr (05/22/18 15:41) Partial Thromboplastin Time (05/22/18 15:41) Fibrin Degradation Products (05/22/18 15:41) Us Venous Lower Ext Lt (05/22/18 15:41) Vital Signs/I&O 05/22/18 05/22/18 14:45 18:17 Pulse 74 76 Resp 20 18 B/P (MAP) 155/90 (111) 163/87 (112) Pulse Ox 95 95 O2 Delivery Room Air Room Air Blood Pressure Mean: 111 Progress Progress Note : Time: 17:30 Progress Note I have seen and evaluated the patient. I have informed her of her laboratory and imaging studies. She denies shortness of breath, chest pain, and her vitals are normal. Given the normal US and no physical exam signs of PE I believe the elevated d-dimer is unrelated. She agrees with plan of care, plans for discharge , return precautions were given. she was able to ambulate with minimal pain. Voices no questions or concerns. Diagnostic Imaging Diagonstic Imaging: Xray, Ultrasound Plain Films/CT/US/NM/MRI: leg, ankle Comments NAME: JAYE MORALES [facility] REC#: [id number] PT STATUS: REG ER : 1945 PHYSICIAN: KOTA WHATLEY ADMIT DATE: 05/22/18/ER Signed Date of Exam: 05/22/18 US VENOUS LOWER EXT LT PROCEDURE: US left lower extremity venous. TECHNIQUE: Multiple real-time grayscale images were obtained over the left lower extremity in various projections. Additional duplex Doppler and color Doppler images were also obtained. INDICATION: Left lower extremity edema with Left foot pain EXAMINATION: Grayscale and color Doppler evaluation of the deep veins of the left lower extremity were performed with waveform analysis. FINDINGS: Continuous venous flow is present. No intraluminal filling defect is identified. There is normal compressibility and response to augmentation. No abnormal perivascular fluid collection is identified. IMPRESSION: No ultrasound evidence of left lower extremity deep venous thrombosis. Dictated by: Dictated on workstation # [id number] Dict: 05/22/18 1623 Trans: 05/22/181623 Interpreted by: LILIANA SILVA MD Electronically signed by: LILIANA SILVA MD 05/22/181623 NAME: JAYE MORALES MED REC#: [id number] PT STATUS: REG ER : 1945 PHYSICIAN: KOTA WHATLEY ADMIT DATE: 05/22/18/ER Signed Date of Exam: 05/22/18 ANKLE, LEFT, 3 VIEWS INDICATION: Left ankle pain. TIME OF EXAM: 03:45 p.m. FINDINGS: Three views of the left ankle were obtained. There is generalized demineralization. Ankle mortise is maintained. Talar dome is smooth. No fracture or dislocation is seen. There is enthesopathy at the Achilles tendon insertion on the calcaneus. Large plantar calcaneal spur is seen. There appears to be some generalized soft tissue swelling. IMPRESSION: Soft tissue swelling and chronic changes. No acute bony abnormality is detected. Dictated by: Dictated on workstation # [id number] Dict: 05/22/18 1548 Trans: 05/22/181815 Interpreted by: URBAN SMITH MD Electronically signed by: URBAN SMITH MD 05/22/181815 NAME: JAYE MORALES MED REC#: [id number] PT STATUS: REG ER : 1945 PHYSICIAN: KOTA WHATLEY ADMIT DATE: 05/22/18/ER Signed Date of Exam: 05/22/18 FOOT, LEFT, 3 VIEWS INDICATION: Left foot pain. TIME OF EXAM: 03:50 p.m. FINDINGS: Three views of the left foot were obtained. Metatarsals appear intact. Phalanges are intact. Mid foot and hind foot are unremarkable apart from chronic enthesopathy of the Achilles tendon insertion as well as a plantar calcaneal spur. No fractures are seen. IMPRESSION: Chronic changes. No acute bony abnormality is detected. Dictated by: Dictated on workstation # [id number] Dict: 05/22/18 1549 Trans: 05/22/181815 Interpreted by: URBAN SMITH MD Electronically signed by: RUBAN SMITH MD 05/22/181815 Departure Impression Primary Impression: Left foot pain Disposition: 01 HOME, SELF-CARE Condition: Stable/Unchanged Departure-Patient Inst. Decision time for Depature: 17:33 Referrals: NO,LOCAL PHYSICIAN (PCP) Primary Care Physician Patient Instructions: Ankle Sprain (DC) Add. Discharge Instructions: Take medications as directed. Follow-up with your primary care provider within 1 week for recheck. Return back to the emergency room for any worsening symptoms or concerns as needed. Ice and heat may be beneficial alternating at 20 minute intervals. Rest. Elevate her feet as much as possible. All discharge instructions reviewed with patient and/or family. Voiced understanding. Scripts Hydrocodone Bit/Acetaminophen (Hydrocodone/Acetaminophen 5/325mg Tablet) 1 Tab Tab 1 EACH PO Q4-6HR PRN for PAIN-MODERATE MDD 10, #14 TAB Prov: KOTA WHATLEY 05/22/18 KOTA WHATLEY May 22, 2018 16:41
[2018-05-22 16:57] LABS: ALBUMIN 4.1 GM/DL (3.2-4.5); BILIRUBIN,TOTAL 0.9 MG/DL (0.1-1.0); CALCIUM 9.3 MG/DL (8.5-10.1); CREATININE SERUM 1.02 MG/DL (0.60-1.30); POTASSIUM 4.1 MMOL/L (3.6-5.0); TOTAL PROTEIN 7.2 GM/DL (6.4-8.2)
[2018-05-22 17:07] LABS: INR 0.9 (0.8-1.4); PROTHROMBIN TIME PATIENT 12.6 SEC (12.2-14.7)
[2018-05-22 17:25] LABS: FIBRIN DEGRADATION PRODUCTS 1.06 UG/ML (0.00-0.49)
[2018-05-22 18:17] VITALS: BP 163/87
== END | disposition home or self-care (01) ==
LOC: EDUNIT# 14:18 → ER 14:24
DX: M79.672 Pain in left foot (principal); I42.9 Cardiomyopathy, unspecified; E78.00 Pure hypercholesterolemia, unspecified; I10 Essential (primary) hypertension; E03.9 Hypothyroidism, unspecified; E11.9 Type 2 diabetes mellitus without complications; F41.9 Anxiety disorder, unspecified; F32.9 Major depressive disorder, single episode, unspecified; Z85.3 Personal history of malignant neoplasm of breast; Z82.49 Family history of ischemic heart disease and other diseases of the circulatory system; Z87.440 Personal history of urinary (tract) infections; Z88.8 Allergy status to other drugs, medicaments and biological substances; Z79.4 Long term (current) use of insulin; Z77.22 Contact with and (suspected) exposure to environmental tobacco smoke (acute) (chronic); Z90.11 Acquired absence of right breast and nipple; Z90.89 Acquired absence of other organs; Z90.710 Acquired absence of both cervix and uterus
CPT/HCPCS: 36415; 73610; 73630; 80053; 85025; 85379; 85610; 85730

== ENCOUNTER 2018-07-23 16:16 | Emergency (ER) | payer MEDICARE, MEDICAID ==
[~2018-07-23] VITALS: Ht 157.5 cm; Wt 99.8 kg
--- OUTSIDE RECORDS SUMMARY | 2018-07-23 16:25 | XMS REPORT | Continuity of Care Document ---
Author Author [facility] Organization [facility] Address Unknown Phone Unavailable Allergies Active Description Code Type Severity Reaction Onset Reported/Identified Relationship to Patient Clinical Status Yes cephalexin [id number] Drug Allergy Moderate RASH 01/19/2016 Medications There is no data. Problems Date Dx Coded Attending Type Code Diagnosis Diagnosed By 12/20/2013 RAN WILLINGHAM Ot 722.0 CERVICAL DISC DISPLACMNT 12/20/2013 RAN WILLINGHAM Ot 723.1 CERVICALGIA 12/20/2013 RAN WILLINGHAM Ot 728.85 SPASM OF MUSCLE 07/19/2014 LYNN VILLAFANA APRN Ot 786.50 CHEST PAIN NOS 07/19/2014 LYNN VILLAFANA CHANGE OF ADDRESS CLERK Ot 786.52 PAINFUL RESPIRATION 01/25/2015 QUINTON CLARKE [...] LEFT SIDE 06/27/2016 RAN WILLINGHAM Ot Z79.4 TIRE VULCANIZER (CURRENT) USE OF INSULIN 06/27/2016 RAN WILLINGHAM Ot Z79.899 OTHER TIRE VULCANIZER (CURRENT) DRUG THERAPY 06/29/2016 RAN WILLINGHAM Ot E11.9 TYPE 2 DIABETES MELLITUS WITHOUT COMPLIC 06/29/2016 RAN WILLINGHAM Ot I10 ESSENTIAL (PRIMARY) HYPERTENSION 06/29/2016 RAN WILLINGHAM Ot M25.552 PAIN IN LEFT HIP 06/29/2016 RAN WILLINGHAM Ot M54.42 LUMBAGO WITH SCIATICA, LEFT SIDE 06/29/2016 RAN WILLINGHAM Ot Z79.4 TIRE VULCANIZER (CURRENT) USE OF INSULIN 06/29/2016 RAN WILLINGHAM Ot Z79.899 OTHER SENIOR LIVING (CURRENT) DRUG THERAPY 10/09/2016 RAN WILLINGHAM Ot E11.9 TYPE 2 DIABETES MELLITUS WITHOUT COMPLIC 10/09/2016 RAN WILLINGHAM Ot I10 ESSENTIAL (PRIMARY) HYPERTENSION 10/09/2016 RAN WILLINGHAM Ot L02.413 CUTANEOUS ABSCESS OF RIGHT UPPER LIMB 10/09/2016 RAN WILLINGHAM Ot Z23 ENCOUNTER FOR IMMUNIZATION 10/09/2016 RAN WILLINGHAM Ot Z79.4 SENIOR LIVING (CURRENT) USE OF INSULIN 10/09/2016 RAN WILLINGHAM Ot Z79.899 OTHER TIRE VULCANIZER (CURRENT) DRUG THERAPY 10/11/2016 RAN WILLINGHAM Ot E11.9 TYPE 2 DIABETES MELLITUS WITHOUT COMPLIC 10/11/2016 RAN WILLINGHAM Ot I10 ESSENTIAL (PRIMARY) HYPERTENSION 10/11/2016 RAN WILLINGHAM Ot L02.413 CUTANEOUS ABSCESS OF RIGHT UPPER LIMB 10/11/2016 RAN WILLINGHAM Ot Z23 ENCOUNTER FOR IMMUNIZATION 10/11/2016 RAN WILLINGHAM Ot Z79.4 TIRE VULCANIZER (CURRENT) USE OF INSULIN 10/11/2016 RAN WILLINGHAM Ot Z79.899 OTHER SENIOR LIVING (CURRENT) DRUG THERAPY 10/14/2016 RAN WILLINGHAM Ot E11.9 TYPE 2 DIABETES MELLITUS WITHOUT COMPLIC 10/14/2016 RAN WILLINGHAM Ot I10 ESSENTIAL (PRIMARY) HYPERTENSION 10/14/2016 RAN WILLINGHAM Ot L02.413 CUTANEOUS ABSCESS OF RIGHT UPPER LIMB 10/14/2016 RAN WILLINGHAM Ot Z23 ENCOUNTER FOR IMMUNIZATION 10/14/2016 RAN WILLINGHAM Ot Z79.4 SENIOR LIVING (CURRENT) USE OF INSULIN 10/14/2016 RAN WILLINGHAM Ot Z79.899 OTHER SENIOR LIVING (CURRENT) DRUG THERAPY 11/06/2016 OMI BARTH MD Ot E11.9 TYPE 2 DIABETES MELLITUS WITHOUT COMPLIC 11/06/2016 OMI BARTH MD, Ot I10 ESSENTIAL (PRIMARY) HYPERTENSION 11/06/2016 [...] STATUS 11/06/2016 OMI BARTH MD, Ot Z79.4 TIRE VULCANIZER (CURRENT) USE OF INSULIN 11/06/2016 OMI BARTH MD Ot Z79.899 OTHER SENIOR LIVING (CURRENT) DRUG THERAPY 11/06/2016 OMI BARTH MD, Ot Z85.3 PERSONAL HISTORY OF MALIGNANT NEOPLASM O 11/06/2016 OMI ABRTH MD Ot Z90.12 ACQUIRED ABSENCE OF LEFT [...] STATUS 11/08/2016 OMI BARTH MD Ot Z79.4 TIRE VULCANIZER (CURRENT) USE OF INSULIN 11/08/2016 OMI BARTH MD Ot Z79.899 OTHER SENIOR LIVING (CURRENT) DRUG THERAPY 11/08/2016 OMI BARTH MD [...] STATUS 11/30/2016 OMI BARTH MD Ot Z79.4 TIRE VULCANIZER (CURRENT) USE OF INSULIN 11/30/2016 OMI BARTH MD Ot Z79.899 OTHER SENIOR LIVING (CURRENT) DRUG THERAPY 11/30/2016 OMI BARTH MD [...] STATUS 12/01/2016 OMI BARTH MD, Ot Z79.4 TIRE VULCANIZER (CURRENT) USE OF INSULIN 12/01/2016 OMI BARTH MD, Ot Z79.899 OTHER TIRE VULCANIZER (CURRENT) DRUG THERAPY 12/01/2016 OMI BARTH MD, Ot Z85.3 PERSONAL HISTORY [...] SPINE 01/25/2017 OMI BARTH MD Ot Z79.4 SENIOR LIVING (CURRENT) USE OF INSULIN 01/25/2017 TAB CHIN, OMI Drew Ot Z98.890 OTHER SPECIFIED POSTPROCEDURAL STATES 05/16/2017 LYNN VILLAFANA APRN Ot E03.9 HYPOTHYROIDISM, UNSPECIFIED 05/16/2017 LYNN VILLAFANA CHANGE OF ADDRESS CLERK Ot E11.9 TYPE 2 DIABETES MELLITUS WITHOUT [...] TO ENVIRON TOBACCO SMO 05/16/2017 LYNN VILLAFANA CHANGE OF ADDRESS CLERK Ot Z79.4 SENIOR LIVING (CURRENT) USE OF INSULIN 05/16/2017 LYNN VILLAFANA [...] SCIATIC NERVE, RIGHT LOWER YAO 05/23/2017 LYNN VILLAFANA APRN Ot I10 ESSENTIAL (PRIMARY) HYPERTENSION 05/23/2017 LYNN VILLAFANA APRN Ot M79.604 PAIN IN RIGHT LEG 05/23/2017 LYNN VILLAFANA APRN Ot Z77.22 CNTCT W AND EXPSR TO ENVIRON TOBACCO SMO 05/23/2017 LYNN VILLAFANA APRN Ot Z79.4 TIRE VULCANIZER (CURRENT) USE OF INSULIN 05/23/2017 LYNN VILLAFANA [...] UNSPECIFIED 02/10/2018 JESSICA SOSA MD Ot Z79.4 TIRE VULCANIZER (CURRENT) USE OF INSULIN 02/10/2018 JESSICA SOSA [...] UNSPECIFIED 02/12/2018 JESSICA SOSA MD Ot Z79.4 SENIOR LIVING (CURRENT) USE OF INSULIN 02/12/2018 JESSICA SOSA [...] TO OTHER ANTIBIOTIC AGENT 02/12/2018 JESSICA SOSA MD Ot Z90.11 ACQUIRED ABSENCE OF RIGHT BREAST AND NIP 02/12/2018 JESSICA SOSA MD Ot Z90.710 ACQUIRED ABSENCE OF BOTH CERVIX AND UTER 02/12/2018 JESSICA SOSA MD Ot Z90.89 ACQUIRED ABSENCE OF OTHER ORGANS 02/22/2018 OMI BARTH MD, Ot E03.9 HYPOTHYROIDISM, UNSPECIFIED 02/22/2018 OMI BARTH MD Ot E11.9 TYPE 2 [...] TRUNK 02/22/2018 OMI BARTH MD, Ot Z79.4 SENIOR LIVING (CURRENT) USE OF INSULIN 02/22/2018 OMI BARTH MD, Ot Z85.3 PERSONAL HISTORY OF MALIGNANT NEOPLASM O 02/22/2018 OMI BARTH MD, Ot Z87.440 PERSONAL HISTORY OF URINARY (TRACT) INFE 02/22/2018 OMI BARTH MD, Ot Z88.1 ALLERGY STATUS TO OTHER ANTIBIOTIC AGENT 02/22/2018 OMI BARTH MD Ot Z90.49 ACQUIRED ABSENCE OF OTHER SPECIFIED PART 02/22/2018 OMI BARTH MD, Ot Z90.710 ACQUIRED ABSENCE OF BOTH CERVIX AND UTER 05/22/2018 BERNKOTA ACHARYA Ot E03.9 HYPOTHYROIDISM, UNSPECIFIED 05/22/2018 BERNOTSHEREENIS Ot E11.9 TYPE 2 DIABETES MELLITUS WITHOUT COMPLIC 05/22/2018 BERNOT KOTA Ot E78.00 PURE HYPERCHOLESTEROLEMIA, UNSPECIFIED 05/22/2018 BERNOT KOTA Ot F32.9 MAJOR DEPRESSIVE DISORDER, SINGLE EPISOD 05/22/2018 BERNMARCK KOTA Ot F41.9 ANXIETY DISORDER, UNSPECIFIED 05/22/2018 BERNOT, KOTA Ot I10 ESSENTIAL (PRIMARY) HYPERTENSION 05/22/2018 MARISAMARCK KOTA Ot I42.9 CARDIOMYOPATHY, UNSPECIFIED 05/22/2018 SHEREEN WHATLEYIS Ot M79.672 PAIN IN LEFT FOOT 05/22/2018 PHYLICIA KOTA Ot Z77.22 CNTCT W AND EXPSR TO ENVIRON TOBACCO SMO 05/22/2018 BERNMARCK KOTA Ot Z79.4 SENIOR LIVING (CURRENT) USE OF INSULIN 05/22/2018 PHYLICIA KOTA Ot Z82.49 FAMILY HX OF ISCHEM HEART DIS AND OTH DI 05/22/2018 SHEREEN WHATLEYIS Ot Z85.3 PERSONAL HISTORY OF MALIGNANT NEOPLASM O 05/22/2018 SHEREEN WHATLEYIS Ot Z87.440 PERSONAL HISTORY OF URINARY (TRACT) INFE 05/22/2018 SHEREEN WHATLEYIS Ot Z88.8 ALLERGY STATUS TO OTH DRUG/MEDS/BIOL SUB 05/22/2018 PHYLICIA KOTA Ot Z90.11 ACQUIRED ABSENCE OF RIGHT BREAST AND NIP 05/22/2018 BERNMARCK KOTA Ot Z90.710 ACQUIRED ABSENCE OF BOTH CERVIX AND UTER 05/22/2018 PHYLICIA, KOTA Ot Z90.89 ACQUIRED ABSENCE OF OTHER ORGANS 05/24/2018 PHYLICIA KOTA Ot E03.9 HYPOTHYROIDISM, UNSPECIFIED 05/24/2018 PHYLICIA KOTA Ot E11.9 TYPE 2 DIABETES MELLITUS WITHOUT COMPLIC 05/24/2018 PHYLICIA KOTA Ot E78.00 PURE HYPERCHOLESTEROLEMIA, UNSPECIFIED 05/24/2018 BERNMARCK KOTA Ot F32.9 MAJOR DEPRESSIVE DISORDER, SINGLE EPISOD 05/24/2018 BERNMARCK KOTA Ot F41.9 ANXIETY DISORDER, UNSPECIFIED 05/24/2018 BERNMARCK KOTA Ot I10 ESSENTIAL (PRIMARY) HYPERTENSION 05/24/2018 PHYLICIA KOTA Ot I42.9 CARDIOMYOPATHY, UNSPECIFIED 05/24/2018 BERNOT, KOTA Ot M79.672 PAIN IN LEFT FOOT 05/24/2018 SHEREEN WHATLEYIS Ot Z77.22 CNTCT W AND EXPSR TO ENVIRON TOBACCO SMO 05/24/2018 PHYLICIA KOTA Ot Z79.4 TIRE VULCANIZER (CURRENT) USE OF INSULIN 05/24/2018 KOTA WHATLEY Ot Z82.49 FAMILY HX OF ISCHEM HEART DIS AND OTH DI 05/24/2018 KOTA WHATLEY Ot Z85.3 PERSONAL HISTORY OF MALIGNANT NEOPLASM O 05/24/2018 KOTA WHATLEY Ot Z87.440 PERSONAL HISTORY OF URINARY (TRACT) INFE 05/24/2018 KOTA WHATLEY Ot Z88.8 ALLERGY STATUS TO OTH DRUG/MEDS/BIOL SUB 05/24/2018 KOTA WHATLEY Ot Z90.11 ACQUIRED ABSENCE OF RIGHT BREAST AND NIP 05/24/2018 KOTA WHATLEY Ot Z90.710 ACQUIRED ABSENCE OF BOTH CERVIX AND UTER 05/24/2018 KOTA WHATLEY Ot Z90.89 ACQUIRED ABSENCE OF OTHER ORGANS Procedures There is no data. Results Test Result Range Gram stain microscopy - 10/09/16 21:25 GRAM STAIN RESULT NO BACTERIA NRG Bacteria identification in wound by culture - 10/09/16 21:25 Bacteria identification in wound by culture [id number] NRG FREE TEXT EXTERNAL SENSITIVITY REPORTED 10/11/16 7:35 NRG QUANTITY OF GROWTH Moderate Growth NRG MRSA AGAR Screening test for MRSA is NEGATIVE (Final to follow) NRG CALL POSITIVES (F1 HELP) CALLED TO VERÓNICA GALLAGHER 10/11/16 7:45 BY [facility] Bacterial susceptibility panel - 10/09/16 21:25 Oxacillin [...] protein measurement (mass/volume) 1.79 mg /dL 0.00-0.50 Complete blood count (CBC) with automated white blood cell (WBC) differential - 05/22/18 16:27 Blood leukocytes automated count (number/volume) 7.5 10*3/uL 4.3-11.0 Blood erythrocytes automated count (number/volume) 3.42 10*6/uL 4.35-5.85 Venous blood hemoglobin measurement (mass/volume) 10.4 g/dL 11.5-16.0 Blood hematocrit (volume fraction) 33 % 35-52 Automated erythrocyte mean corpuscular volume 96 [foz_us] 80-99 Automated erythrocyte mean corpuscular hemoglobin (mass per erythrocyte) 30 pg 25-34 Automated erythrocyte mean corpuscular hemoglobin concentration measurement ( mass/volume) 32 g/dL 32-36 Automated erythrocyte distribution width ratio 14.4 % 10.0-14.5 Automated blood platelet count (count/volume) 187 10*3/uL 130-400 Automated blood platelet mean volume measurement 10.4 [foz_us] 7.4-10.4 Automated blood neutrophils/100 leukocytes 78 % 42-75 Automated blood lymphocytes/100 leukocytes 10 % 12-44 Blood monocytes/100 leukocytes 8 % 0-12 Automated blood eosinophils/100 leukocytes 3 % 0-10 Automated blood basophils/100 leukocytes 0 % 0-10 Blood neutrophils automated count (number/volume) 5.8 10*3 1.8-7.8 Blood lymphocytes automated count (number/volume) 0.8 10*3 1.0-4.0 Blood monocytes automated count (number/volume) 0.6 10*3 0.0-1.0 Automated eosinophil count 0.2 10*3/uL 0.0-0.3 Automated blood basophil count (count/volume) 0.0 10*3/uL 0.0-0.1 Comprehensive metabolic panel - 05/22/18 16:27 Serum or plasma sodium measurement (moles/volume) 141 mmol/L 135-145 Serum or plasma potassium measurement (moles/volume) 4.1 mmol/L 3.6-5.0 Serum or plasma chloride measurement (moles/volume) 107 mmol/L 98-107 Carbon dioxide 24 mmol/L 21-32 Serum or plasma anion gap determination (moles/volume) 10 mmol/L 5-14 Serum or plasma urea nitrogen measurement (mass/volume) 22 mg/dL 7-18 Serum or plasma creatinine measurement (mass/volume) 1.02 mg/dL 0.60-1.30 Serum or plasma urea nitrogen/creatinine mass ratio 22 NRG Serum or plasma creatinine measurement with calculation of estimated glomerular filtration rate 53 NRG Serum or plasma glucose measurement (mass/volume) 65 mg/dL 70-105 Serum or plasma calcium measurement (mass/volume) 9.3 mg/dL 8.5-10.1 Serum or plasma total bilirubin measurement (mass/volume) 0.9 mg/dL 0.1-1.0 Serum or plasma alkaline phosphatase measurement (enzymatic activity/volume) 77 U/L 40-136 Serum or plasma aspartate aminotransferase measurement (enzymatic activity/ volume) 15 U/L 5-34 Serum or plasma alanine aminotransferase measurement (enzymatic activity/volume ) 15 U/L 0-55 Serum or plasma protein measurement (mass/volume) 7.2 g/dL 6.4-8.2 Serum or plasma albumin measurement (mass/volume) 4.1 g/dL 3.2-4.5 CALCIUM CORRECTED 9.2 mg/dL 8.5-10.1 PT panel in platelet poor plasma by coagulation assay - 05/22/18 16:27 Prothrombin time (PT) in platelet poor plasma by coagulation assay 12.6 s 12.2-14.7 INR in platelet poor plasma or blood by coagulation assay 0.9 0.8-1.4 Activated partial thromboplastin time (aPTT) in platelet poor plasma bycoagulation assay - 05/22/18 16:27 Activated partial thromboplastin time (aPTT) in platelet poor plasma bycoagulation assay 26 s 24-35 Fibrin D-dimer FEU measurement in platelet poor plasma (mass/volume) - 16:27 Fibrin D-dimer FEU measurement in platelet poor plasma (mass/volume) 1.06 ug/mL 0.00-0.49 Encounters ACCT No. Visit Date/Time Discharge Status Pt. Type Provider Facility Loc./Unit Complaint [id number] 05/22/2018 14:24:00 05/22/2018 18:17:00 DIS Emergency KOTA WHATLEY [facility] ER LEFT FOOT PAIN [id number] 02/20/2018 23:19:00 02/21/2018 00:46:00 DIS Outpatient TAB CHIN, OMI Russell [facility] ER R HIP PAIN [id number] 02/10/2018 13:27:00 02/10/2018 14:19:00 DIS Emergency IAN CHIN, JESSICA Jorgensen [facility] ER BLOOD IN R EYE,NOW HAS KNOT ON FOREHEAD [id number] 05/16/2017 19:31:00 05/16/2017 20:33:00 DIS Emergency LYNN VILLAFANA APRN [facility] ER RT LEG/HIP PAIN [id number] 01/25/2017 22:18:00 01/25/2017 23:52:00 DIS Emergency OMI BARTH MD [facility] ER RT SHOULDER PAIN [id number] 11/06/2016 00:33:00 11/06/2016 02:43:00 DIS Emergency OMI BARTH MD [facility] ER FALL INJ L LEG [id number] 10/09/2016 19:10:00 10/09/2016 21:41:00 DIS Emergency RAN WILLINGHAM [facility] ER POSS BITE [id number] 06/27/2016 16:27:00 06/27/2016 17:30:00 DIS Emergency RAN WILLINGHAM [facility] ER L HIP/LEG PAIN [id number] 02/09/2016 10:13:00 02/09/2016 11:18:00 DIS Emergency MELBA REHMAN MD [facility] ER FALL/LEFT KNEE PAIN [id number] 01/19/2016 19:48:00 01/19/2016 20:39:00 DIS Emergency RAN WILLINGHAM [facility] ER L FOOT PAIN [id number] 02/08/2015 23:50:00 02/10/2015 14:00:00 DIS Inpatient VIKTOR ZIMMER MD [facility] SURGICAL ACUTE RENAL FAILURE; UTI [id number] 01/24/2015 23:45:00 01/25/2015 00:20:00 DIS Emergency QUINTON CLARKE DO [facility] ER L EYE PAIN,SWELLING [id number] 07/19/2014 10:37:00 07/19/2014 12:02:00 DIS Emergency LYNN VILLAFANA APRN [facility] ER LEFT RIB/SHOULDER PAIN [id number] 12/20/2013 16:58:00 12/20/2013 18:52:00 DIS Emergency RAN WILLINGHAM [facility] ER NECK PAIN
--- NOTE | 2018-07-23 17:24 | ED Lower Extremity ---
General Chief Complaint: Lower Extremity Stated Complaint: L FOOT AND ANKLE PAIN Nursing Triage Note: PT CO OF L LOWER EXT PAIN IN ANKLE AREA, STATES HAS PAIN AND SWELLING STARTED 2-3 DAYS AGO, Nursing Sepsis Screen: No Definite Risk Source: patient Exam Limitations: no limitations History of Present Illness Date Seen by Provider: Jul 23, 2018 Time Seen by Provider: 16:40 Initial Comments Patient is a 73-year-old female who presents to the emergency room with complaints of left ankle pain. She reports that 1 week ago she was walking out of her house when she caught her left foot on the threshold causing the ankle to twist and her to fall to the ground. She denies other injuries from the fall but reports that the pain has gotten worse the last 2-3 days and has had mild swelling to the left ankle. Onset: last week Pain/Injury Location: left ankle Method of Injury: fell Modifying Factors: Worse With Movement Allergies and Home Medications Allergies Coded Allergies: cephalexin (Verified Allergy, Intermediate, RASH, 01/19/16) Home Medications Alprazolam 0.5 Mg Tablet, 0.5 MG PO BID PRN for AGITATION, (Reported) Amlodipine Besylate 10 Mg Tablet, 10 MG PO DAILY, (Reported) Atorvastatin Calcium 10 Mg Tablet, 10 MG PO HS, (Reported) Cholecalciferol 5,000 Unit Capsule, 5,000 UNIT PO DAILY, (Reported) Ciprofloxacin HCl 5 Ml Drops, 2 DROPS OP TID 3 Drops Each Ear Prescribed by: JESSICA SOSA on 02/10/18 1409 Cyclobenzaprine HCl 5 Mg Tablet, 5 MG PO TID PRN for PAIN-MODERATE TO SEVERE Prescribed by: LYNN VILLAFANA on 05/16/17 1946 Hydrocodone Bit/Acetaminophen 1 Each Tablet, 1 EACH PO Q6H PRN for PAIN Prescribed by: OMI BORRERO on 11/06/16 0238 Hydrocodone Bit/Acetaminophen 1 Tab Tab, 1 EACH PO Q4-6HR PRN for PAIN-MODERATE Prescribed by: KOTA WHATLEY on 05/22/18 1735 Hydrocodone/Acetaminophen 1 Each Tablet, 1 EACH PO Q6H Prescribed by: OMI BORRERO on 02/21/18 0039 Insulin Glargine,Hum.rec.anlog 100 Unit/1 Ml Cartridge, 20 UNIT SQ HS, (Reported ) Oxybutynin Chloride 15 Mg Tab.osm.24, 15 MG PO DAILY, (Reported) Patient Home Medication List Home Medication List Reviewed: Yes Review of Systems Constitutional: no symptoms reported, see HPI Musculoskeletal: see HPI, joint pain (left ankle) All Other Systems Reviewed Negative Unless Noted: Yes Past Dxdircx-Yqjfdz-Aqccyv Hx Patient Social History Alcohol Use: Denies Use Recreational Drug Use: No Smoking Status: Never a Smoker 2nd Hand Smoke Exposure: Yes Recent Foreign Travel: No Contact w/Someone Who Travel: No Recent Infectious Disease Expo: No Recent Hopitalizations: Yes ( JUNE, ELEVATED k+) Immunizations Up To Date Tetanus Booster (TDap): Unknown Date of Influenza Vaccine: Jun 09, 2014 Seasonal Allergies Seasonal Allergies: No Past Medical History Surgeries: Yes (knee replacement x3, right mastectomy, back, hand, elbow surgery) Appendectomy, Bladder Surgery, Breast, Eye Surgery, Hysterectomy, Joint Replacement, Orthopedic, Thyroidectomy Respiratory: No Cardiac: Yes Cardiomyopathy, High Cholesterol, Hypertension Neurological: No 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 Disorders: 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, Menopausal Genitourinary: Yes Neurogenic Bladder, UTI-Chronic Gastrointestinal: No Musculoskeletal: Yes Arthritis, Chronic Back Pain Endocrine: Yes Hypothyroidsim, Diabetes, Non-Insulin dep Cataract Cancer: Yes Breast Psychosocial: Yes Anxiety, Depression Integumentary: No Blood Disorders: No Family Medical History Arthritis G8 BROTHER BRAIN ANEURYSM 19 MOTHER Hypertension G8 BROTHER G8 BROTHER G8 BROTHER Myocardial infarction 19 FATHER No Pertinent Family Hx Physical Exam Vital Signs Vital Signs - First Documented 07/23/18 16:30 Temp 97.4 Pulse 59 Resp 18 B/P (MAP) 181/60 (100) Pulse Ox 97 Capillary Refill : Less Than 3 Seconds Height, Weight, BMI Height: 5'2.00" Weight: 220lbs. 0oz. 99.542441mq; 41.33 BMI Method:Stated General Appearance: WD/WN, no apparent distress Cardiovascular: normal peripheral pulses, regular rate, rhythm, no edema, no gallop, no JVD, no murmur Respiratory: chest non-tender, lungs clear, normal breath sounds, no respiratory distress, no accessory muscle use Ankles: left ankle pain, left ankle soft tissue tenderness, left ankle swelling Neurologic/Tendon: normal sensation, normal motor functions, normal tendon functions, responds to pain, no evidence tendon injury Neurologic/Psychiatric: alert, normal mood/affect, oriented x 3 Skin: normal color, warm/dry normal capillary refill and distal pulses Progress/Results/Core Measures Results/Orders My Orders Orders - KOTA WHATLEY Ankle, Left, 3 Views (07/23/18 16:43) Vital Signs/I&O 07/23/18 07/23/18 16:30 18:14 Temp 97.4 97.4 Pulse 59 59 Resp 18 18 B/P (MAP) 181/60 (100) 181/60 (100) Pulse Ox 97 97 Blood Pressure Mean: 100 Diagnostic Imaging Diagonstic Imaging: Xray Plain Films/CT/US/NM/MRI: ankle Comments NAME: JAYE MORALES MED REC#: [id number] PHYSICIAN: KOTA WHATLEY CC: KOTA WHATLEY; HÉCTOR TRIMLBE MD Page 1 of 1 RADIOLOGY REPORT [facility] [place] CC: KOTA WHATLEY; HÉCTOR TRIMBLE MD Page 1 of 1 RADIOLOGY REPORT NAME: JAYE MORALES MED REC#: [id number] PT STATUS: DEP ER : 1945 PHYSICIAN: KOTA WHATLEY ADMIT DATE: 07/23/18/ER Signed Date of Exam: 07/23/18 ANKLE, LEFT, 3 VIEWS Clinical indication: Patient with left ankle pain. The pain and swelling started 2-3 days ago. Patient fell a couple of weeks ago but didn't have any pain at that time. Exam: X-ray of the left ankle, 3 views. Comparison: X-ray of the left ankle dated 05/22/2018. Findings: There is no evidence of interval cortical disruption, acute fracture, or bony erosive process. There is extensive soft tissue edema involving the left lower chimney again seen. The ankle mortise and syndesmotic joints unremarkable. There is stable spurring of the distal aspect of the medial and lateral malleolar regions. There is severely hypertrophic spurs involving the calcaneus at the plantar and Achilles attachments. Impression: 1: Stable x-ray of the left ankle with no interval acute fracture. 2: Ankle swelling. Dictated by: Dictated on workstation # [id number] Dict: 07/23/18 1709 Trans: 07/23/184 Interpreted by: HÉCTOR TRIMBLE MD Electronically signed by: HÉCTOR TRIMBLE MD 07/23/182223 Reviewed: Reviewed by Me Departure Impression Primary Impression: Ankle sprain Disposition: HOME, SELF-CARE Condition: Stable/Unchanged Departure-Patient Inst. Decision time for Depature: 17:48 Referrals: VANGIE BLEDSOE DO (PCP/Family) Primary Care Physician Patient Instructions: Ankle Sprain (DC) Add. Discharge Instructions: Wear the lenny bandage as needed for comfort. Ice to the sore areas at 20min intervals. Take your hydrocodone as needed for pain relief. Follow up with primary care with in 1 week for a recheck. Return back to the emergency room for any worsening symptoms or concerns as needed. All discharge instructions reviewed with patient and/or family. Voiced understanding. KOTA WHATLEY Jul 23, 2018 17:24
--- NOTE | 2018-07-23 17:30 | Diagnostic Imaging Report ---
Clinical indication: Patient with left ankle pain. The pain and swelling started 2-3 days ago. Patient fell a couple of weeks ago but didn't have any pain at that time. Exam: X-ray of the left ankle, 3 views. Comparison: X-ray of the left ankle dated 05/22/2018. Findings: There is no evidence of interval cortical disruption, acute fracture, or bony erosive process. There is extensive soft tissue edema involving the left lower chimney again seen. The ankle mortise and syndesmotic joints unremarkable. There is stable spurring of the distal aspect of the medial and lateral malleolar regions. There is severely hypertrophic spurs involving the calcaneus at the plantar and Achilles attachments. Impression: 1: Stable x-ray of the left ankle with no interval acute fracture. 2: Ankle swelling. Dictated by: Dictated on workstation # [id number]
[2018-07-23 18:14] VITALS: BP 181/60
== END 2018-07-23 18:14 | disposition home or self-care (01) ==
LOC: EDUNIT# 16:16 → ER 16:18
DX: S93.402A Sprain of unspecified ligament of left ankle, initial encounter (principal); I42.9 Cardiomyopathy, unspecified; E78.00 Pure hypercholesterolemia, unspecified; I10 Essential (primary) hypertension; E03.9 Hypothyroidism, unspecified; E11.9 Type 2 diabetes mellitus without complications; F41.9 Anxiety disorder, unspecified; F32.9 Major depressive disorder, single episode, unspecified; Z85.3 Personal history of malignant neoplasm of breast; Z88.8 Allergy status to other drugs, medicaments and biological substances; Z79.4 Long term (current) use of insulin; Z82.49 Family history of ischemic heart disease and other diseases of the circulatory system; Z77.22 Contact with and (suspected) exposure to environmental tobacco smoke (acute) (chronic); Z90.11 Acquired absence of right breast and nipple; Z98.890 Other specified postprocedural states; Z90.49 Acquired absence of other specified parts of digestive tract; Z90.710 Acquired absence of both cervix and uterus; Z90.89 Acquired absence of other organs; W01.0XXA Fall on same level from slipping, tripping and stumbling without subsequent striking against object, initial encounter; Y93.01 Activity, walking, marching and hiking
CPT/HCPCS: 73610

== ENCOUNTER → 2019-05-16 | Outpatient (CLI) | payer MEDICARE, MEDICAID ==
--- NOTE | 2019-05-16 12:13 | Diagnostic Imaging Report ---
PROCEDURE: CT lumbar spine without contrast. TECHNIQUE: Multiple contiguous axial images were obtained through the lumbar spine without the use of intravenous contrast. Sagittal and coronal reformations were then performed. Auto Exposure Controls were utilized during the CT exam to meet ALARA standards for radiation dose reduction. INDICATION: Back pain, prior back surgery There are no prior studies available for comparison. The reconstructed parasagittal images show that there has been a prior fusion of L4 and L5. There are bilateral pedicle screws in place at L4 and L5 and there is an interbody device in place. The orthopedic hardware seems to be in good position. The artifact related to the hardware does limit the evaluation of the thecal sac at L4-L5. There is no obvious stenosis identified. At the L5-S1 level there is a smooth bony protuberance along the posterior aspect of the superior endplate of S1. This indents the right ventral aspect of the thecal sac but does not appear to produce any high-grade central stenosis. Bony excrescence is in proximity to the origin of the exiting right nerve root however. There is perhaps mild trefoil stenosis at L3-L4. There does not appear to be any significant neural foraminal narrowing at this level. The remainder of the lumbar spine is unremarkable for spinal stenosis or nerve root encroachment. There is no fracture or acute bony abnormality appreciated. There is no paraspinal mass visualized. IMPRESSION: 1. There are postsurgical changes at L4-L5 consistent with a prior posterior fusion. The orthopedic hardware appears to be in good position. The thecal sac is difficult to assess due to the artifact related to the orthopedic hardware. If further study is desired, then MRI would be recommended. 2. There is a small bony excrescence eccentric to the right at L5-S1. There is no high-grade central stenosis identified but the bony excrescence is in proximity to the origin of the exiting right nerve root. 3. There is perhaps borderline trefoil stenosis at L3-4. The remainder of the lumbar spine is unremarkable for spinal stenosis or nerve root encroachment. 4. There is no sign of an acute bony abnormality. Dictated by: Dictated on workstation # [id number]
== END ==
LOC: RAD 10:44
PROVIDERS: ATTEND Physician Assistant
DX: M53.87 Other specified dorsopathies, lumbosacral region (principal); Z98.1 Arthrodesis status
CPT/HCPCS: 72131

== ENCOUNTER 2019-10-26 04:09 | Emergency (ER) | payer MEDICARE, MEDICAID ==
[~2019-10-26] VITALS: Ht 157 cm; Wt 97.0 kg
[~2019-10-26 04:09] MED LIST changes: -HYDR-3812 PO; -MINO100C2 PO; +MINO100C5 PO
--- OUTSIDE RECORDS SUMMARY | 2019-10-26 04:16 | XMS REPORT ---
Author Author [facility] Organization [facility] Address [address] [place] [id number] Care Team Providers Care Immunologist Name Role Phone NO, LOCAL PHYSICIAN Unavailable Unavailable VANGIE PEPE Unavailable RAN WILLINGHAM Unavailable Unavailable MELBA REHMAN MD Unavailable Unavailable VANGIE PEPE Unavailable OMI BARTH MD Unavailable Unavailable CHESTER REED Unavailable Unavailable Allergies No Information Medications Medication Ingredient Drug Dose Dates Status Sig Sig Care Class(es) (Normalized) (Original) Provid er ciprofloxac ciprofloxac Quinolone 1 02-11-20 Complete take 1 Ciprofloxaci Huan in 3 mg/ml in Antimicrobi drop(s 18 - d drop(s) into n Hcl J ophthalmic al ) 02-18-20 the eye(s) (Ciloxan) 5 Sampson solution (2 18 three times Ml Drops 2 (no sources.) daily Drops phone) OPTHALMIC Three Times A Day 7 Days 1 Each 3 Drops Each Ear 02/10/18 Problems Active Problems Problem Normalized Date of Normalized Normalized Provider Fac ility Classification Problem(s) Problem Problem Problem Sta tus Onset/Resoluti Duration on Residual Acquired Episodic Active HUAN SAMPSON Not Availa ble codes; absence of (44143) unclassified both cervix (7 sources.) and uterus Residual Acquired Episodic Active VIKTOR ZIMMER , Not Avai lable codes; absence of MD (55111) unclassified breast and (1 source.) nipple Residual Acquired Episodic Active OMI Not Available codes; absence of TAB (79976) unclassified left breast (4 sources.) and nipple Residual Acquired Episodic Active HUAN SAMPSON Not Availa ble codes; absence of (06372) unclassified other organs (6 sources.) Residual Acquired Episodic Active OMI Not Available codes; absence of TAB (67238) unclassified other MD (13 sources.) specified parts of digestive tract Translations: [ ACQUIRED ABSENCE OF BOTH CERVIX AND UTER, CNTCT W AND EXPSR TO ENVIRON TOBACCO SMO, ACQUIRED ABSENCE OF OTHER SPECIFIED PART, ACQUIRED ABSENCE OF OTHER ORGANS, FAMILY HX OF ISCHEM HEART DIS AND OTH DI, CNTCT W AND EXPSR TO ENVIRON TOBACCO SMO, ACQUIRED ABSENCE OF RIGHT BREAST AND NIP] Residual Acquired Episodic Active HUAN SAMPSON Not Availa ble codes; absence of (53493) unclassified right breast (5 sources.) and nipple Allergic Allergy status Episodic Active HUAN SAMPSON Not Available reactions (10 to other (28050) sources.) antibiotic agents status Translations: [ ALLERGY STATUS TO OTH DRUG/MEDS/BIOL SUB] Anxiety Anxiety Chronic Active VIKTOR ZIMMER , Not Avai lable disorders (18 disorder, (14227) sources.) unspecified Translations: [ OTHER SPECIFIED ANXIETY DISORDERS, ANXIETY STATE NOS] Other Arthrodesis Episodic Active [facility] Via connective status [facility] - (1 source.) [facility] (91546) Other Arthropathy, Chronic Active VIKTOR ZIMMER , Not Available non-traumatic unspecified, (68068) joint site disorders (1 unspecified source.) Laina-; endo-; Cardiomyopathy Chronic Active HUAN SAMPSON Not Available and , unspecified (26749) myocarditis; cardiomyopathy (except that caused by tuberculosis or sexually transmitted disease) (6 sources.) Other eye Conjunctival Episodic Active QUINTON CLARKE , DO Not Available disorders (1 hemorrhage (32111) source.) Residual Contact with Episodic Active KOTA BERNOT Not A vailable codes; and (81898) unclassified (suspected) (4 sources.) exposure to environmental tobacco smoke (acute) (chronic) Fluid and Dehydration Episodic Active VIKTOR ZIMMER , Not A vailable electrolyte (72926) disorders (1 source.) Immunizations Encounter for Episodic Active VIKTOR ZIMMER , Not Available and screening immunization MD (04581) for infectious Translations: disease (5 [ PROPHYLACTIC sources.) VACC AGAINST STREPTOCOCCUS ] Essential Essential Chronic Active RAN Not Availabl e hypertension (primary) TAL FUNK (05213) (22 sources.) hypertension Residual Family history Episodic Active HUAN SAMPSON Not Available codes; of ischemic (06004) unclassified heart disease (4 sources.) and other diseases of the circulatory system Other Hip pain Episodic Active VANGIE PEPE Via [facility]il abraham non-traumatic [address] [facility] joint [facility] disorders (2 (92120) sources.) Thyroid Hypothyroidism Chronic Active OMI Not Leigha ilable disorders (17 , unspecified BRUEGGEMANN , (11855) sources.) MD Other 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, disorders (4 right lower sources.) limb Other skin Localized Episodic Active OMI Not Availab le disorders (4 swelling, mass BRUEGGEMANN , (83502) sources.) and MD dwight trunk Other jail Episodic Active RAN Not Availabl e aftercare (22 (current) use TAL FUNK (28869) sources.) of insulin Other Long-term Episodic Active VIKTOR ZIMMER , Not Leigha ilable aftercare (1 (current) use MD (37126) source.) of insulin Mood disorders Major Chronic Active VIKTOR ZIMMER , Not Available (1 source.) depressive (64564) affective disorder, single episode, unspecified Other nervous Other chronic Chronic Active OMI Not Available system pain BRUEGGEMANN , (58915) disorders (3 MD sources.) Other Other long Episodic Active RAN Not Availab le aftercare (8 term (current) TAL FUNK (95451) sources.) drug therapy Other eye Other Episodic Active HUAN SAMPSON Not Availa ble disorders (1 specified (54344) source.) disorders of eye and adnexa Other Pain in left Episodic Active KOTA BERNOT Not A vailable non-traumatic ankle and (45313) joint joints of left disorders (3 foot sources.) Other Pain in left Episodic Active KOTA BERNOT Not A vailable connective foot (03622) tissue disease (3 sources.) Other Pain in left Episodic Active OMI Not Avail able non-traumatic knee BRUEGGEMANN , (56994) joint MD disorders (4 sources.) Other Pain in left Episodic Active OMI Not Avail able connective lower leg BRUEGGEMANN , (39792) tissue disease MD (3 sources.) Other eye Pain in or Episodic Active QUINTON TRICIA , DO Not Av ailable disorders (1 around eye (07764) source.) Other Pain in right Episodic Active OMI Not Avai lable non-traumatic hip BRUEGGEMANN , (42349) joint MD disorders (5 sources.) Other Pain in right Episodic Active no name no infor mation connective leg tissue disease (4 sources.) Other Pain in right Episodic Active OMI Not Avai lable non-traumatic shoulder BRUEGGEMANN , (83226) joint MD disorders (6 sources.) Other lower Painful Episodic Active LYNN VILLAFANA Not Avail able respiratory respiration (53834) disease (1 source.) Nausea and Persistent Episodic Active VIKTOR ZIMMER , Not A vailable vomiting (1 vomiting (29413) source.) Cancer of Personal Episodic Active VIKTOR ZIMMER , Not Avai lable breast (19 history of MD (95918) sources.) malignant neoplasm of breast Translations: [ HX OF BREAST MALIGNANCY] Genitourinary Personal Episodic Active HUAN SOSA Not Av ailable symptoms and history of (76848) ill-defined urinary conditions (7 (tract) sources.) infections Translations: [ PERSONAL HISTORY OF OTHER DISEASES OF UR] Other nervous Piriformis Episodic Active VANGIE PEPE [facility] syndrome [address] Hospital disorders (2 [facility] sources.) (11193) Complications Postsurgical Chronic Active VIKTOR ZIMMER , Not Available of surgical hypothyroidism (03539) procedures or medical care (1 source.) Other Presence of Chronic Active MELBA Not Availa ble connective left MD SHERIE (11886) tissue disease artificial (5 sources.) knee joint Disorders of Pure Chronic Active VIKTOR ZIMMER , Not A vailable lipid hypercholester (81028) metabolism (2 olemia sources.) Translations: [ HYPERLIPIDEMIA NEC/NOS] Septicemia Septicemia due Episodic Active VIKTOR ZIMMER , N ot Available (except in to escherichia (96348) labor) (2 coli [E. coli] sources.) Translations: [ SEPSIS] Other Spasm of Episodic Active RAN Not Available connective muscle TAL FUNK (68269) tissue disease (1 source.) Sprains and Sprain of Episodic Active KOTA BERNOT Not Av ailable strains (3 unspecified (74031) sources.) ligament of left ankle, initial encounter Diabetes Type 2 Chronic Active RAN Not Available mellitus diabetes TAL FUNK (03240) without mellitus complication without (22 sources.) complications Translations: [ DIAB NATHALIA WO COMPL, TYPE II OR UNSPEC TY] Inflammation; Unspecified Episodic Active HUAN SAMPSON Not Available infection of conjunctivitis (24126) eye (except that caused by tuberculosis or sexually transmitteddis ease) (3 sources.) Essential Unspecified Chronic Active VIKTOR ZIMMER , Not A vailable hypertension essential (15510) (1 source.) hypertension Spondylosis; 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 Active RAN No t Available intervertebral inflammatory TAL FUNK (14469) disc spondylopathy, disorders; site other back unspecified problems (8 Translations: sources.) [ PAIN IN THORACIC SPINE, CERVICALGIA, CERVICAL DISC DISPLACMNT] Other injuries Unspecified Episodic Active OMI Not A vailable and conditions injury of left TAB (95845) due to lower leg, external initial causes (6 encounter sources.) Otitis media Unspecified Episodic Active HUAN SAMPSON Not Available and related nonsuppurative (14295) conditions (1 otitis media, source.) bilateral Past or Other Problems Problem Normalized Date of Normalized Normalized Provider Fac ility Classification Problem(s) Problem Problem Problem Sta tus Onset/Resoluti Duration on External cause Fall from no information no information MELBA Not Available codes: Fall (8 chair, initial MD SHERIE (37226) sources.) encounter Translations: [ FALL SAME LEV FROM SLIP/TRIP W/O STRIKE ] Mood disorders Major no information no information HUAN WEL LER Not Available (14 sources.) depressive (39568) disorder, single episode, unspecified External cause Other external no information no information RICH OTHY Not Available codes: cause status MD SHERIE (77333) Unspecified (8 Translations: sources.) [ ACTIVITY, WALKING, MARCHING AND HIKING] Residual Other no information no information OMI Not Available codes; specified TAB , (18881) unclassified postprocedural (6 sources.) states Otitis media Otitis media no information no information VANGIE PEPE [facility] and related and related [address] Hospital conditions (2 conditions [facility] sources.) (38863) Disorders of Pure no information no information HUAN WELLE R Not Available lipid hypercholester (21361) metabolism (14 olemia, sources.) unspecified External cause 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 no information TIMOTH Y Not Available codes: Place place in MD SHERIE (38209) of occurrence single-family (1 source.) (private) house as the place of occurrence of the external cause Procedures Procedure Normalized Procedure Procedure Result Performer Facility Date 05-22-2018 Duplex scan of lower no information KOTA BERNOT Via [facility] limb veins [facility] (34178) 07-23-2018 X-ray of left ankle no information KOTA WHATLEY A scension Via [facility] (86739) 05-22-2018 X-ray of left ankle no information KOTA WHATLEY V ia [facility] (69720) 05-22-2018 X-ray of left foot no information KOTA WHATLEY Vi a [facility] (83391) Immunizations Normalized Immunization Date Notes Care Provider Facili ty Immunization diphtheria, tetanus 10-09-2016 no information no name Not Available toxoids and (81327) acellular pertussis vaccine Results Test Name Value Interpretation Reference Range Date Time Fa cility (Normalized) (Normalized) (Medline Reference) venous blood hemoglobin measurement (mass/volume) on 2018-05-22 Hemoglobin mass 10.4 g/dL (L) 12.1 - 17.2 g/dL Via [facility] (d) [facility] (92883) serum or plasma urea nitrogen/creatin ine mass ratio on 2018-05-22 Urea 22 mg/mg (no code) 6 - 22 mg/mg Via [facility] nitrogen/Creatin Hospital ine mass ratio [facility] (09093) serum or plasma urea nitrogen measurement (mass/volume) on 2018-05-22 Urea nitrogen 22 mg/dL (H) 7 - 20 mg/dL Via [facility] (99434) serum or plasma total bilirubin measurement (mass/volume) on 2018-05-22 Bilirubin mass 0.9 mg/dL (no code) 0.1 - 1.2 mg/dL [facility] (37853[facility] serum or plasma sodium measurement (moles/volume) on 2018-05-22 Sodium molar 141 mmol/L (no code) 135 - 145 mmol/L [facility] (77317) serum or plasma protein measurement (mass/volume) on 2018-05-22 Protein mass 7.2 g/dL (no code) 6.4 - 8.3 g/dL Via [facility] (76379) serum or plasma potassium measurement (moles/volume) on 2018-05-22 Potassium molar 4.1 mmol/L (no code) 3.7 - 5.2 mmol/L [facility]21556[facility] serum or plasma glucose measurement (mass/volume) on 2018-05-22 Glucose mass 65 mg/dL (L) 60 - 125 mg/dL Via [facility] () serum or plasma creatinine measurement with calculation of estimated glomerular filtration rate on 2018-05-22 GFR/1.73 sq M 53 (no code) 90 - 120 Via [facility] among mL/min/{1.73_m2} mL/min/{1.73_m2} [facility] non-blacks MDRD Cisco vol rate/area (64902) (S/P/Bld) serum or plasma creatinine measurement (mass/volume) on 2018-05-22 Creatinine mass 1.02 mg/dL (no code) [facility] () serum or plasma chloride measurement (moles/volume) on 2018-05-22 Chloride molar 107 mmol/L (no code) 95 - 106 mmol/L Via [facility] (51114) serum or plasma calcium measurement (mass/volume) on 2018-05-22 Calcium mass 9.3 mg/dL (no code) 8.5 - 10.2 mg/dL Via [facility] isti [facility] (99418) serum or plasma aspartate aminotransferase measurement (enzymatic activity/volume) on 2018-05-22 AST enzyme 15 U/L (no code) 10 - 34 U/L Via [facility] (97971) serum or plasma anion gap determination (moles/volume) on 2018-05-22 Anion gap 3 10 mmol/L (no code) 3 - 11 mmol/L Via [facility] (69932) serum or plasma alkaline phosphatase measurement (enzymatic activity/volume) on 2018-05-22 ALP enzyme 77 U/L (no code) 44 - 147 U/L Via [facility] act/[facility] (83793) serum or plasma albumin measurement (mass/volume) on 2018-05-22 Albumin mass 4.1 g/dL (no code) 3.4 - 5.4 g/dL Via [facility] (17466) serum or plasma alanine aminotransferase measurement (enzymatic activity/volume) on 2018-05-22 ALT enzyme 15 U/L (no code) 4 - 40 U/L Via [facility] (88052) prothrombin time (pt) in platelet poor plasma by coagulation assay on 2018-05-22 Prothrombin time 12.6 s (no code) 9.4 - 12.5 s Via [facility] (PT) Coag time Hospital (PPP) [facility] (07809) inr in platelet poor plasma or blood by coagulation assay on 2018-05-22 INR Coag RelTime 0.9 (no code) [facility] (Platelet poor Hospital plasma or blood) [facility] (69999) fibrin d-dimer feu measurement in platelet poor plasma (mass/volume) on 2018-05-22 Fibrin D-dimer 1.06 ug/mL (H) 0 - 0.5 ug/mL Via [facility] sti FEU IA [facility] ([facility]) [facility] () carbon dioxide on 2018-05-22 CO2 molar conc 24 mmol/L (no code) 23 - 29 mmol/L Via [facility] (05356) calcium measurement corrected for albumin on 2018-05-22 Calcium mass 9.2 mg/dL (no code) 8.5 - 10.2 mg/dL Via [facility] (14930) blood neutrophils automated count (number/volume) on 2018-05-22 Neutrophils Auto 5.8 10*3/uL (no code) 1.7 - 7 10*3/uL Via Elizabteh #/vol ([facility]) [facility] (20784) blood monocytes/100 leukocytes on 2018-05-22 Monocytes/100 8 % (no code) 2 - 8 % [facility] WBC Auto (d) [facility] (44645) blood monocytes automated count (number/volume) on 2018-05-22 Monocytes Auto 0.6 10*3/uL (no code) 0.3 - 0.9 Via [facility] #/vol (d) 10*3/uL [facility] (21851) blood lymphocytes automated count (number/volume) on 2018-05-22 Lymphocytes Auto 0.8 10*3/uL (L) 0.9 - 2.9 Via Sahil abraham #/vol (d) 10*3/uL [facility] (34640) blood leukocytes automated count (number/volume) on 2018-05-22 WBC Auto #/vol 7.5 10*3/uL (no code) 3.5 - 10.5 [facility] (Bld) 10*3/uL [facility] (18888) blood hematocrit (volume fraction) on 2018-05-22 Hematocrit Auto 33 % (L) 36.1 - 50.3 % Via Chr isti Volume Fraction [facility] (d) [facility] (29433) blood erythrocytes automated count (number/volume) on 2018-05-22 RBC Auto #/vol 3.42 10*6/uL (L) 4.2 - 6.1 Via Adryan i (Bld) 10*6/uL [facility] (95714) automated erythrocyte mean corpuscular volume on 2018-05-22 MCV Auto Entitic 96 fL (no code) 80 - 100 fL Via Chri sti volume (RBC) [facility] (51592) automated erythrocyte mean corpuscular hemoglobin concentration measurement (mass/volume) on 2018-05-22 MCHC Auto mass 32 g/dL (no code) 32 - 36 g/dL Via Sahil ti conc (RBC) [facility] (92950) automated erythrocyte mean corpuscular hemoglobin (mass per erythrocyte) on 2018-05-22 MCH Auto Entitic 30 pg (no code) 27 - 31 pg Via Sahil ti mass (RBC) [facility] (64067) automated erythrocyte distribution width ratio on 2018-05-22 Erythrocyte 14.4 % (no code) 11.6 - 14.6 % [facility] distribution Hospital width Auto Ratio [facility] (RBC) (20745) automated eosinophil count on 2018-05-22 Eosinophils Auto 0.2 10*3/uL (no code) 0.05 - 0.5 Via Sahil ti #/vol (Bld) 10*3/uL [facility] (17498) automated blood platelet mean volume measurement on 2018-05-22 Platelet mean 10.4 fL (no code) 7.2 - 11.7 fL Via Sahil ti volume Auto Hospital Entitic volume [facility] (d) (83460) automated blood platelet count (count/volume) on 2018-05-22 Platelets Auto 187 10*3/uL (no code) 150 - 450 Via [facility] #/vol (Bld) 10*3/uL [facility] (53195) automated blood neutrophils/100 leukocytes on 2018-05-22 Neutrophils/100 78 % (H) 40 - 60 % Via Adryan i WBC Auto (Bld) [facility] (23911) automated blood lymphocytes/100 leukocytes on 2018-05-22 Lymphocytes/100 10 % (L) 20 - 40 % Via Adryan i WBC Auto (d) [facility] (21162) automated blood eosinophils/100 leukocytes on 2018-05-22 Eosinophils/100 3 % (no code) 1 - 4 % Via Adryan i WBC Auto (d) [facility] (62316) automated blood basophils/100 leukocytes on 2018-05-22 Basophils/100 0 % (no code) 0.5 - 1 % Via [facility] WBC Auto (d) [facility] (96628) automated blood basophil count (count/volume) on 2018-05-22 Basophils Auto 0.0 10*3/uL (no code) 0 - 0.3 10*3/uL Via Ch risti #/vol ([facility]) [facility] (03070) activated partial thromboplastin time (aptt) in platelet poor plasma bycoagulation assay on 2018-05-22 aPTT Coag time 26 s (no code) 25 - 35 s Via [facility] ([facility]) [facility] (48034) Vital Signs The data below is from unstructured sources Vital Response Date/Time Temperature (Fahrenheit) 96.7 degree s F (97.6 - 99.5) 06/27/2016 4:39pm Temperature (Calculated Celsius) 35. 25356 degrees C (36.4 - 37.5) 06/27/2016 4:39pm Temperature Source Temporal 06/27/2016 4:39pm Pulse Rate (adult) 78 bpm (60 - 90) 06/27/2016 5:29pm Respiratory Rate 18 bpm (12 - 24) 06/27/2016 5:29pm O2 Sat by Pulse Oximetry 95 % (88 - 100) 06/27/2016 5:29pm Blood Pressure 160/76 mm Hg 06/27/2016 5:29pm Blood Pressure Mean 104 mm Hg 06/27/2016 4:39pm Pain Numeric Pain Scale 10-Worst Possible Pain 06/27/2016 5:08pm Height (Feet) 5 feet 4:39pm Height (Inches) 2 inches 06/27/2016 4:39pm Height (Calculated Centimeters) 157. 693668 cm 06/27/2016 4:39pm Weight (Pounds) 214 pounds 06/27/2016 4:39pm Weight (Calculated Kilograms) 97.068 768 kilograms 06/27/2016 4:39pm Capillary Refill Capillary Refill Less Than 3 Seconds 06/27/2016 4:39pm Height 5 ft 2 in Weight 214 lb Body Mass Index 39.1 kg/m^2 Vital Response Date/Time Temperature (Fahrenheit) 96.4 degree s F (97.6 - 99.5) 10/09/2016 7:19pm Temperature (Calculated Celsius) 35. 31686 degrees C (36.4 - 37.5) 10/09/2016 7:19pm Temperature Source Tympanic 10/09/2016 7:19pm Pulse Rate (adult) 66 bpm (60 - 90) 10/09/2016 7:19pm Respiratory Rate 18 bpm (12 - 24) 10/09/2016 7:19pm O2 Sat by Pulse Oximetry 95 % (88 - 100) 10/09/2016 7:19pm Blood Pressure 146/61 mm Hg 10/09/2016 7:19pm Blood Pressure Mean 89 mm Hg 10/09/2016 7:19pm Pain Numeric Pain Scale 3 7:19pm Height (Feet) 5 feet 12/2016 7:19pm Height (Inches) 2 inches 10/09/2016 7:19pm Height (Calculated Centimeters) 157. 425295 cm 10/09/2016 7:19pm Weight (Pounds) 214 pounds 10/09/2016 7:19pm Weight (Calculated Kilograms) 97.068 768 kilograms 10/09/2016 7:19pm Capillary Refill Capillary Refill Less Than 3 Seconds 10/09/2016 7:19pm Height 5 ft 2 in Weight 214 lb Body Mass Index 39.1 kg/m^2 Vital Response Date/Time Temperature (Fahrenheit) 96.6 degree s F (97.6 - 99.5) 11/06/2016 12:49am Temperature (Calculated Celsius) 35. 32937 degrees C (36.4 - 37.5) 11/06/2016 12:49am Temperature Source Temporal 11/06/2016 12:49am Pulse Rate (adult) 84 bpm (60 - 90) 11/06/2016 12:49am Respiratory Rate 18 bpm (12 - 24) 11/06/2016 12:49am O2 Sat by Pulse Oximetry 97 % (88 - 100) 11/06/2016 12:49am Blood Pressure 137/67 mm Hg 11/06/2016 12:49am Blood Pressure Mean 90 mm Hg 11/06/2016 12:49am Pain Numeric Pain Scale 5-Moderate Pain 11/06/2016 2:43am Height (Feet) 5 feet 09/2016 12:49am Height (Inches) 2.00 inches 11/06/2016 12:49am Height (Calculated Centimeters) 157. 072223 cm 11/06/2016 12:49am Weight (Pounds) 214 pounds 11/06/2016 12:49am Weight (Calculated Kilograms) 97.068 768 kilograms 11/06/2016 12:49am Capillary Refill Capillary Refill Less Than 3 Seconds 11/06/2016 12:49am Height 5 ft 2 in 017 12:49am Weight 214 lb 11/06/2016 12:49am Body Mass Index 39.1 kg/m^2 11/06/2016 12:49am Vital Response Date/Time Temperature (Fahrenheit) 97.5 degree s F (97.6 - 99.5) 02/09/2016 10:26am Temperature (Calculated Celsius) 36. 29838 degrees C (36.4 - 37.5) 02/09/2016 10:26am Temperature Source Temporal 01/19/2016 7:55pm Pulse Rate (adult) 55 bpm (60 - 90) 02/09/2016 10:26am Respiratory Rate 16 bpm (12 - 24) 02/09/2016 10:26am O2 Sat by Pulse Oximetry 100 % (88 - 100) 01/19/2016 8:39pm Blood Pressure 134/64 mm Hg 02/09/2016 10:26am Blood Pressure Mean 87 mm Hg 02/09/2016 10:26am Pain Numeric Pain Scale 2 10:26am Pain Intensity 8 2015 7:55pm Height (Feet) 5 feet 12/2015 10:26am Height (Inches) 2 inches 02/09/2016 10:26am Height (Calculated Centimeters) 157. 237055 cm 02/09/2016 10:26am Weight (Pounds) 212 pounds 02/09/2016 10:26am Weight (Ounces) 0 oz 06/ 7:55pm Weight (Calculated Grams) 624683.877 gm 01/19/2016 7:55pm Weight (Calculated Kilograms) 96.161 583 kilograms 02/09/2016 10:26am Calculated BMI 41.33 7:55pm Vital Response Date/Time Temperature (Fahrenheit) 97.6 degree s F (97.6 - 99.5) Temperature (Calculated Celsius) 36. 93801 degrees C (36.4 - 37.5) Pulse Rate (adult) 68 bpm (60 - 90) Respiratory Rate 18 bpm (12 - 24) O2 Sat by Pulse Oximetry 95 % (88 - 100) Blood Pressure 185/94 mm Hg Pain Pain Intensity 7 Height (Feet) 5 feet Height (Inches) 2 inches Height (Calculated Centimeters) 157. 914950 cm Weight (Pounds) 236 pounds Weight (Calculated Grams) 404811.800 gm Weight (Calculated Kilograms) 107.04 7800 kilograms Calculated BMI 43.16 Vital Response Date/Time Temperature (Fahrenheit) 98.8 degree s F (97.6 - 99.5) Temperature (Calculated Celsius) 37. 01497 degrees C (36.4 - 37.5) Temperature Source Temporal Pulse Rate (adult) 81 bpm (60 - 90) Respiratory Rate 18 bpm (12 - 24) O2 Sat by Pulse Oximetry 93 % (88 - 100) Blood Pressure 139/62 mm Hg Pain Pain Intensity 0 Height (Feet) 5 feet Height (Inches) 2 inches Height (Calculated Centimeters) 157. 630664 cm Weight (Pounds) 234 pounds Weight (Calculated Kilograms) 106.14 0616 kilograms Calculated BMI 42.79 Vital Response Date/Time Temperature (Fahrenheit) 97.5 degree s F (97.6 - 99.5) Temperature (Calculated Celsius) 36. 16253 degrees C (36.4 - 37.5) Temperature Source Temporal Pulse Rate (adult) 50 bpm (60 - 90) Respiratory Rate 16 bpm (12 - 24) O2 Sat by Pulse Oximetry 100 % (88 - 100) Blood Pressure 130/68 mm Hg Pain Pain Intensity 0 Height (Feet) 5 feet Height (Inches) 2.00 inches Height (Calculated Centimeters) 157. 133135 cm Weight (Pounds) 226 pounds Weight (Ounces) 0.0 oz Weight (Calculated Grams) 891306.877 gm Weight (Calculated Kilograms) 102.51 1877 kilograms Calculated BMI 41.33 Vital Response Date/Time Temperature (Fahrenheit) 97.1 degree s F (97.6 - 99.5) 05/16/2017 8:32pm Temperature (Calculated Celsius) 36. 27694 degrees C (36.4 - 37.5) 05/16/2017 8:32pm Temperature Source Tympanic 05/16/2017 8:32pm Pulse Rate (adult) 76 bpm (60 - 90) 05/16/2017 8:32pm Respiratory Rate 16 bpm (12 - 24) 05/16/2017 8:32pm O2 Sat by Pulse Oximetry 95 % (88 - 100) 05/16/2017 8:32pm Blood Pressure 153/78 mm Hg 05/16/2017 8:32pm Blood Pressure Mean 103 mm Hg 05/16/2017 7:44pm Pain Numeric Pain Scale 1 8:32pm Height (Feet) 5 feet 05/2017 7:44pm Height (Inches) 2.00 inches 05/16/2017 7:44pm Height (Calculated Centimeters) 157. 570574 cm 05/16/2017 7:44pm Height Method Stated 05/2017 7:44pm Weight (Pounds) 214 pounds 05/16/2017 7:44pm Weight (Ounces) 0 oz 05/2017 7:44pm Weight (Calculated Grams) 99434.768 gm 05/16/2017 7:44pm Weight (Calculated Kilograms) 97.068 768 kilograms 05/16/2017 7:44pm Calculated BMI 41.33 05/2017 7:44pm Weight Method Stated 05/2017 7:44pm Capillary Refill Capillary Refill Less Than 3 Seconds 05/16/2017 7:44pm Vital Response Date/Time Temperature Source Tympanic 05/22/2018 2:45pm Pulse Rate (adult) 76 bpm (60 - 90) 05/22/2018 6:17pm Respiratory Rate 18 bpm (12 - 24) 05/22/2018 6:17pm O2 Sat by Pulse Oximetry 95 % (88 - 100) 05/22/2018 6:17pm Blood Pressure 163/87 mm Hg 05/22/2018 6:17pm Blood Pressure Mean 112 mm Hg (65 - 110) 05/22/2018 6:17pm Pain Numeric Pain Scale 0-No Pain 05/22/2018 6:17pm Height (Feet) 5 feet 2:45pm Height (Inches) 2.00 inches 05/22/2018 2:45pm Height (Calculated Centimeters) 157. 695817 cm 05/22/2018 2:45pm Height Method Stated 2:45pm Weight (Pounds) 238 pounds 05/22/2018 2:45pm Weight (Calculated Grams) 811024.99 gm 05/22/2018 2:45pm Weight (Calculated Kilograms) 107.95 4985 kilograms 05/22/2018 2:45pm Weight Method Stated 2:45pm Capillary Refill Capillary Refill Less Than 3 Seconds 05/22/2018 2:45pm Height 5 ft 2 in 018 2:45pm Weight 238 lb 05/22/2018 2:45pm Body Mass Index 43.5 kg/m^2 05/22/2018 2:45pm Vital Response Date/Time Temperature (Fahrenheit) 97.4 degree s F (97.6 - 99.5) 07/23/2018 4:30pm Temperature (Calculated Celsius) 36. 26398 degrees C (36.4 - 37.5) 07/23/2018 4:30pm Pulse Rate (adult) 59 bpm (60 - 90) 07/23/2018 4:30pm Respiratory Rate 18 bpm (12 - 24) 07/23/2018 4:30pm O2 Sat by Pulse Oximetry 97 % (88 - 100) 07/23/2018 4:30pm Blood Pressure 181/60 mm Hg 07/23/2018 4:30pm Blood Pressure Mean 100 mm Hg (65 - 110) 07/23/2018 4:30pm Pain Numeric Pain Scale 9 4:30pm Height (Feet) 5 feet 4:30pm Height (Inches) 2.00 inches 07/23/2018 4:30pm Height (Calculated Centimeters) 157. 156658 cm 07/23/2018 4:30pm Weight (Pounds) 220 pounds 07/23/2018 4:30pm Weight (Calculated Grams) 95546.32 gm 07/23/2018 4:30pm Weight (Calculated Kilograms) 99.790 322 kilograms 07/23/2018 4:30pm Weight Method Stated 4:30pm Capillary Refill Capillary Refill Less Than 3 Seconds 07/23/2018 4:30pm Height 5 ft 2 in 018 4:30pm Weight 220 lb 07/23/2018 4:30pm Body Mass Index 40.2 kg/m^2 07/23/2018 4:30pm Vital Response Date/Time Temperature (Fahrenheit) 97.4 degree s F (97.6 - 99.5) 07/23/2018 4:30pm Temperature (Calculated Celsius) 36. 12907 degrees C (36.4 - 37.5) 07/23/2018 4:30pm Pulse Rate (adult) 59 bpm (60 - 90) 07/23/2018 4:30pm Respiratory Rate 18 bpm (12 - 24) 07/23/2018 4:30pm O2 Sat by Pulse Oximetry 97 % (88 - 100) 07/23/2018 4:30pm Blood Pressure 181/60 mm Hg 07/23/2018 4:30pm Blood Pressure Mean 100 mm Hg (65 - 110) 07/23/2018 4:30pm Pain Numeric Pain Scale 9 4:30pm Height (Feet) 5 feet 4:30pm Height (Inches) 2.00 inches 07/23/2018 4:30pm Height (Calculated Centimeters) 157. 833470 cm 07/23/2018 4:30pm Weight (Pounds) 220 pounds 07/23/2018 4:30pm Weight (Calculated Grams) 42358.32 gm 07/23/2018 4:30pm Weight (Calculated Kilograms) 99.790 322 kilograms 07/23/2018 4:30pm Weight Method Stated 4:30pm Capillary Refill Capillary Refill Less Than 3 Seconds 07/23/2018 4:30pm Height 5 ft 2 in 018 4:30pm Weight 220 lb 07/23/2018 4:30pm Body Mass Index 40.2 kg/m^2 07/23/2018 4:30pm Interventions No Information Plan of Treatment The data below is from unstructured sources Discharge Date 06/27/16 5:30pm Disposition 01 HOME, SELF-CARE Condition at Discharge Improved Instructions/Education Provided Scia graciela (DC) Sciatica Exercises Prescriptions See Medication Section Referrals NO,[facility] PHYSICIAN [facility] Physician Additional Instructions/Education Al l discharge instructions reviewed with patient and/or family. Voiced understanding.medications as instructed. Continue usual home medications. continue usual home medications. Ice pack or heating pad as needed for pain. Avoid sitting on hard surfaces, standing for long periods, or sitting for long periods. monitor blood sugars closely. Follow-up with Dr. Pepe for recheck, call for appointment time. Return to the emergency department for worsened pain, numbness, weakness, discoloration, bowel incontinence, bladder incontinence, or any other concerns. Discharge Date 10/09/16 9:41pm Disposition 01 HOME, SELF-CARE Condition at Discharge Improved Instructions/Education Provided Absc ess Incision and Drainage (DC) Forms Provided Local Medical Staff L isting Prescriptions See Medication Section Referrals NO,LOCAL PHYSICIAN [facility] Physician Additional Instructions/Education Al l discharge instructions reviewed with patient and/or family. Voiced understanding. Medications as instructed. Continue usual home medications. Tylenol [id number]-[id number] as directed for pain. Ibuprofen ynub-bmq-alactry as directed for pain. Ice packs or heating pads as needed for pain. Tomorrow morning remove the bandage, shower with antibacterial soap, Pat dry. Pack wound with a small piece of gauze. Cover with gauze and tape. Follow-up with your family practitioner for recheck as an outpatient in the next 2-3 days, call for appointment time cassi morning. Return to the emergency department for worsened redness, drainage, fever, vomiting, or any other concerns. Discharge Date 11/06/16 2:43am Disposition 01 HOME, SELF-CARE Condition at Discharge Improved Instructions/Education Provided Knee Sprain (DC) Prescriptions See Medication Section Referrals NO,LOCAL PHYSICIAN Order Date: Primary Care Physician Additional Instructions/Education Ta ke hydrocodone as prescribed for knee pain. It may be christy to take a stool softener with your hydrocodone to avoid constipation. Please follow-up with your orthopedic provider and/or primary care provider soon as possible. Rest, elevation, and icing in 20 minute intervals may be helpful in reducing pain and swelling. All discharge instructions reviewed with patient and/or family. Voiced understanding. Discharge Date 02/09/16 11:18am Disposition 01 HOME, SELF-CARE Condition at Discharge Stable Instructions/Education Provided Cont usion (ED) Prescriptions See Medication Section Referrals NO,[facility] Additional Instructions/Education Al l discharge instructions reviewed with patient and/or family. Voiced understanding. Continue home medications as directed. Follow-up with your Dr. in a few days for recheck if not improved. Return for worse pain, swelling, weakness, difficulty walking or other concerns as needed. You may take Tylenol, 1000 mg every 8 hours as needed for pain. Discharge Date 02/10/15 2:00pm Disposition 30 STILL A PATIENT Instructions/Education Provided Urin jose Tract Infection in Women (DC) Forms Provided PDI Surgical Prescriptions See Medications Sectio n Referrals (Unspecified) Reason(s) for Referral: KEEP MAR. APPOINTMENT WITH YOUR DR. Care Plan and Goals May resume furos amide for significant leg swelling. resume metformin tomorrow and victoza evening. hold gulcotrol XL and decrease paxil to 15mg daily{half tab of 30mg}. Keep march F/U with her Dr. Discharge Date 05/16/17 8:33pm Disposition 01 HOME, SELF-CARE Condition at Discharge Stable Instructions/Education Provided Musc le Spasms (DC) Prescriptions See Medication Section Referrals NO,LOCAL PHYSICIAN Order Date: Primary Care Physician Additional Instructions/Education 1. Follow-up with your doctor later this week for recheck 2. Return to ER for any concerns All discharge instructions reviewed with patient and/or family. Voiced understanding. Discharge Date 05/22/18 6:17pm Disposition 01 HOME, SELF-CARE Condition at Discharge Stable/Unchan ged Instructions/Education Provided Ankl e Sprain (DC) Prescriptions See Medication Section Referrals NO,LOCAL PHYSICIAN Order Date: Primary Care Physician Note: Additional Instructions/Education Ta ke medications as directed. Follow-up with your primary care provider within 1 week for recheck. Return back to the emergency room for any worsening symptoms or concerns as needed. Ice and heat may be beneficial alternating at 20 minute intervals. Rest. Elevate her feet as much as possible. All discharge instructions reviewed with patient and/or family. Voiced understanding. Discharge Date 07/23/18 6:14pm Disposition 01 HOME, SELF-CARE Condition at Discharge Stable/Unchan ged Instructions/Education Provided Ankl e Sprain (DC) Prescriptions See Medication Section Referrals VANGIE PEPE DO Order Date: Primary Care Physician Address: [facility], [place] [address] [place] [address] Additional Instructions/Education We ar the lenny bandage as needed for comfort. Ice to the sore areas at 20min intervals. Take your hydrocodone as needed for pain relief. Follow up with primary care with in 1 week for a recheck. Return back to the emergency room for any worsening symptoms or concerns as needed. All discharge instructions reviewed with patient and/or family. Voiced understanding. Discharge Date 07/23/18 6:14pm Disposition 01 HOME, SELF-CARE Condition at Discharge Stable/Unchan ged Instructions/Education Provided Ankl e Sprain (DC) Prescriptions See Medication Section Referrals VANGIE PEEP DO Order Date: Primary Care Physician Address: [address] [place] [id number] Additional Instructions/Education We ar the lenny bandage as needed for comfort. Ice to the sore areas at 20min intervals. Take your hydrocodone as needed for pain relief. Follow up with primary care with in 1 week for a recheck. Return back to the emergency room for any worsening symptoms or concerns as needed. All discharge instructions reviewed with patient and/or family. Voiced understanding. Goals No Information Social History No Information Functional Status The data below is from unstructured sources Query Response Date Unruly rded Comprehension Ability Understands Co ncepts February 09, 2015 12:15am No functional status information available. Mental Status No Information Encounters Encounter Normalized Encounter Encounter Diagnosis Care Provi marley Organization Date Type 07-23-2018 Emergency department no information [facility] ( no no organization name - patient visit phone) (no phone) 07-23-2018 05-22-2018 Emergency department no information [facility] ( no no organization name - patient visit phone) (no phone) 05-22-2018 02-21-2018 Emergency department no information no name (no bridget ne) no organization name - patient visit (no phone) 02-21-2018 02-10-2018 Emergency department no information no name (no bridget ne) no organization name - patient visit (no phone) 02-10-2018 01-25-2017 Emergency department no information no name (no bridget ne) no organization name - patient visit (no phone) 01-26-2017 01-25-2015 Emergency department no information no name (no bridget ne) no organization name - patient visit (no phone) 01-25-2015 12-20-2013 Emergency department no information no name (no bridget ne) no organization name - patient visit (no phone) 12-20-2013 02-09-2015 Evaluation and no information no name (no phone) n o organization name - management of (no phone) 02-10-2015 inpatient 05-22-2018 Patient encounter no information no name (no phone) no organization name (no phone) NEGATED Patient encounter no information no name (no phone) no organization name 02-21-2018 (no phone) 05-16-2017 Patient encounter no information no name (no phone) no organization name (no phone) 05-16-2019 Patient encounter no information no name (no phone) no organization name procedure (no phone) 05-16-2019 Patient encounter no information no name (no phone) no organization name procedure (no phone) 11-06-2016 Patient encounter no information no name (no phone) no organization name procedure (no phone) 10-09-2016 Patient encounter no information no name (no phone) no organization name procedure (no phone) Patient encounter no information no name (no phone) no organ ization name procedure (no phone) Medical Equipment No Information Payers No Information Advance Directives Directive Response Recor ded Date/Time Advance Directives No 4:40pm Organ Donor No 06/27/16 4:40pm Resuscitation Status Full Code 06/27/16 4:40pm Directive Response Recor ded Date/Time Advance Directives No 7:19pm Organ Donor No 10/09/16 7:19pm Resuscitation Status Full Code 10/09/16 7:19pm Directive Response Recor ded Date/Time Advance Directives No 12:49am Organ Donor No 11/06/16 12:49am Resuscitation Status Full Code 11/06/16 12:49am Directive Response Recor ded Date/Time Advance Directives No 10:28am Organ Donor No 02/09/16 10:28am Resuscitation Status Full Code 02/09/16 10:28am Directive Response Recor ded Date/Time Advance Directives No 10:48am Organ Donor No 07/19/14 10:48am Resuscitation Status Full Code 07/19/14 10:48am Directive Response Recor ded Date/Time Advance Directives No 11:58pm Organ Donor No 01/24/15 11:58pm Resuscitation Status Full Code 01/24/15 11:58pm Directive Response Recor ded Date/Time Advance Directives No 12:15am Organ Donor No 02/09/15 12:15am Resuscitation Status Full Code 02/09/15 12:15am Directive Response Recor ded Date/Time Advance Directives No 7:44pm Organ Donor No 05/16/17 7:44pm Resuscitation Status Full Code 05/16/17 7:44pm Directive Response Recor ded Date/Time Advance Directives No 2:45pm Organ Donor No 05/22/18 2:45pm Resuscitation Status Full Code 05/22/18 2:45pm Directive Response Recor ded Date/Time Advance Directives No 4:30pm Organ Donor No 07/23/18 4:30pm Resuscitation Status Full Code 07/23/18 4:30pm Discharge Instructions No hospital discharge instructions.No hospital discharge instructions.No hospital discharge instruction information available.No hospital discharge instructions.No hospital discharge instructions.No hospital discharge instructions.No hospital discharge instructions.No hospital discharge instruction information available.No hospital discharge instruction information available.No hospital discharge instruction information available. Chief Complaint and Reason for Visit Chief Complaint Lower Extremity Reason for Visit Left foot pain Chief Complaint Lower Extremity Reason for Visit Ankle sprain Additional Source Comments This clinical document has been generated using [employer] software that has been certified by the Office of the National Coordinator for Health Information Technology (ONC 15.99.04.3023.Diam.31.00.0.406889) and the National Committee for Con[employer] Operator (NCQA, as an eMeasure certified technology). FOR RECORDS PERTAINING TO PATIENTS WHO ARE OR HAVE BEEN ENROLLED IN A CHEMICAL D EPENDENCY/SUBSTANCE ABUSE PROGRAM, SOME INFORMATION MAY BE OMITTED. This clinica l summary was aggregated from multiple sources. Caution should be exercised in using it in the provision of clinical care. This summary normalizes information from multiple sources, and as a consequence, information in this document may ma terially change the coding, format and clinical context of patient data. In clyde tion, data may be omitted in some cases. CLINICAL DECISIONS SHOULD BE BASED ON T HE PRIMARY CLINICAL RECORDS. [employer] provides no warranty or guara ntee of the accuracy or completeness of information in this document.The followi ng information is based on time limited clinical information
--- OUTSIDE RECORDS SUMMARY | 2019-10-26 04:17 | XMS REPORT | Continuity of Care Document ---
Author Organization Unknown Address Unknown Phone Unavailable Allergies Active Description Code Type Severity Reaction Onset Reported/Identified Relationship to Patient Clinical Status Yes cephalexin [id number] Drug Allerg y Moderate RASH 01/19/2016 Medications There is no data. Problems Date Dx Coded Attending Type Code Diagnosis Diagnosed By 12/20/2013 RAN WILLINGHAM Ot 722.0 CERVICAL DISC DISPLACMNT 12/20/2013 RAN WILLINGHAM Ot 723.1 CERVICALGIA 12/20/2013 RAN WILLINGHAM Ot 728.85 SPASM OF MUSCLE 07/19/2014 LYNN VILLAFANA APRN Ot 786.50 CHEST PAIN NOS 07/19/2014 LYNN VILLAFANA DIGITAL CAMPAIGN MANAGER Ot 786.52 PAINFUL RESPIRATION 01/25/2015 QUINTON CLARKE DO Ot 372.72 CONJUNCTIVAL HEMORRHAGE 01/25/2015 QUINTON CLARKE DO Ot 379.91 PAIN IN OR AROUND EYE 02/10/2015 VIKTOR ZIMMER MD Ot 038. 42 E COLI SEPTICEMIA 02/10/2015 VIKTOR ZIMMER MD Ot 244. 0 POSTSURGICAL HYPOTHYROID 02/10/2015 VIKTOR ZIMMER MD Ot 250. 00 DIAB NATHALIA WO COMPL, TYPE II OR UNSPEC TY 02/10/2015 VIKTOR ZIMMER MD Ot 272. 0 PURE HYPERCHOLESTEROLEM 02/10/2015 VIKTOR ZIMMER MD Ot 272. 4 HYPERLIPIDEMIA NEC/NOS 02/10/2015 VIKTOR ZIMMER MD Ot 276. 51 DEHYDRATION 02/10/2015 VIKTOR ZIMMER MD Ot 296. 20 DEPRESS DISORDER-UNSPEC 02/10/2015 VIKTOR ZIMMER MD Ot 300. 00 ANXIETY STATE NOS 02/10/2015 VIKTOR ZIMMER MD Ot 311 02/10/2015 VIKTOR ZIMMER MD Ot 401. 9 HYPERTENSION NOS 02/10/2015 VIKTOR ZIMMER MD Ot 536. 2 PERSISTENT VOMITING 02/10/2015 VIKTOR ZIMMER MD Ot 584. 9 ACUTE RENAL FAILURE, UNSPECIFIED 02/10/2015 VIKTOR ZIMMER MD Ot 599. 0 URIN TRACT INFECTION NOS 02/10/2015 VIKTOR ZIMMER MD Ot 716. 90 ARTHROPATHY NOS-UNSPEC 02/10/2015 VIKTOR ZIMMER MD Ot 724. 5 BACKACHE NOS 02/10/2015 VIKTOR ZIMMER MD Ot 995. 91 SEPSIS 02/10/2015 VIKTOR ZIMMER MD Ot V03. 82 PROPHYLACTIC VACC AGAINST STREPTOCOCCUS 02/10/2015 VIKTOR ZIMMER MD Ot V10. 3 HX OF BREAST MALIGNANCY 02/10/2015 VIKTOR ZIMMER MD Ot V45. 71 ACQUIRED ABSENCE OF BREAST AND NIPPLE 02/10/2015 VIKTOR ZIMMER MD Ot V58. 67 LONG-TERM (CURRENT) USE OF INSULIN 01/19/2016 RAN WILLINGHAM Ot M72.2 PLANTAR FASCIAL FIBROMATOSIS 01/20/2016 RAN WILLINGHAM Ot M72.2 PLANTAR FASCIAL FIBROMATOSIS 02/09/2016 MELBA REHMAN MD, Ot S80.02XA CONTUSION OF LEFT KNEE, INITIAL ENCOUNTE 02/09/2016 MELBA REHMAN MD, Ot W01.0XXA FALL SAME LEV FROM SLIP/TRIP W/O STRIKE 02/09/2016 MELBA REHMAN MD, Ot Y92.[address] IN SINGLE-FAMILY (PRIVATE) HO 02/09/2016 MELBA REHMAN MD, Ot Y99.8 OTHER EXTERNAL CAUSE STATUS 02/09/2016 MELBA REHMAN MD, Ot Z96.652 PRESENCE OF LEFT ARTIFICIAL KNEE JOINT 02/10/2016 RAN WILLINGHAM Ot M72.2 PLANTAR FASCIAL FIBROMATOSIS 02/12/2016 RAN WILLINGHAM Ot M72.2 PLANTAR FASCIAL FIBROMATOSIS 06/27/2016 RAN WILLINGHAM Ot E11.9 TYPE 2 DIABETES MELLITUS WITHOUT COMPLIC 06/27/2016 RAN WILLINGHAM Ot I 10 ESSENTIAL (PRIMARY) HYPERTENSION 06/27/2016 RAN WILLINGHAM Ot M25.552 PAIN IN LEFT HIP 06/27/2016 RAN WILLINGHAM Ot M54.42 LUMBAGO WITH SCIATICA, LEFT SIDE 06/27/2016 RAN WILLINGHAM Ot 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 06/27/2016 RAN WILLINGHAM Ot Z79.899 OTHER RESEARCH GREENHOUSE SUPERVISOR (CURRENT) DRUG THERAPY 06/29/2016 RNA WILLINGHAM Ot E11.9 TYPE 2 DIABETES MELLITUS WITHOUT COMPLIC 06/29/2016 RAN WILLINGHAM Ot I 10 ESSENTIAL (PRIMARY) HYPERTENSION 06/29/2016 RAN WILLINGHAM Ot M25.552 PAIN IN LEFT HIP 06/29/2016 RAN WILLINGHAM Ot M54.42 LUMBAGO WITH SCIATICA, LEFT SIDE 06/29/2016 RAN WILLINGHAM Ot Z79.4 RESIDENTIAL (CURRENT) USE OF INSULIN 06/29/2016 RAN WILLINGHAM Ot Z79.899 OTHER RESIDENTIAL (CURRENT) DRUG THERAPY 10/09/2016 RAN WILLINGHAM Ot E11.9 TYPE 2 DIABETES MELLITUS WITHOUT COMPLIC 10/09/2016 RAN WILLINGHAM Ot I 10 ESSENTIAL (PRIMARY) HYPERTENSION 10/09/2016 RAN WILLINGHAM Ot L02.413 CUTANEOUS ABSCESS OF RIGHT UPPER LIMB 10/09/2016 RNA WILLINGHAM Ot Z 23 ENCOUNTER FOR IMMUNIZATION 10/09/2016 RAN WILLINGHAM Ot Z79.4 RESIDENTIAL (CURRENT) USE OF INSULIN 10/09/2016 RAN WILLINGHAM Ot Z79.899 OTHER RESIDENTIAL (CURRENT) DRUG THERAPY 10/11/2016 RAN WILLINGHAM Ot E11.9 TYPE 2 DIABETES MELLITUS WITHOUT COMPLIC 10/11/2016 RAN WILLINGHAM Ot I 10 ESSENTIAL (PRIMARY) HYPERTENSION 10/11/2016 RAN WILLINGHAM Ot L02.413 CUTANEOUS ABSCESS OF RIGHT UPPER LIMB 10/11/2016 RAN WILLINGHAM Ot Z 23 ENCOUNTER FOR IMMUNIZATION 10/11/2016 RAN WILLINGHAM Ot Z79.4 RESIDENTIAL (CURRENT) USE OF INSULIN 10/11/2016 RAN WILLINGHAM Ot Z79.899 OTHER RESEARCH GREENHOUSE SUPERVISOR (CURRENT) DRUG THERAPY 10/14/2016 RAN WILLINGHAM Ot E11.9 TYPE 2 DIABETES MELLITUS WITHOUT COMPLIC 10/14/2016 RAN WILLINGHAM Ot I 10 ESSENTIAL (PRIMARY) HYPERTENSION 10/14/2016 RAN WILLINGHAM Ot L02.413 CUTANEOUS ABSCESS OF RIGHT UPPER LIMB 10/14/2016 RAN WILLINGHAM Ot Z 23 ENCOUNTER FOR IMMUNIZATION 10/14/2016 RAN WILLINGHAM Ot Z79.4 RESIDENTIAL (CURRENT) USE OF INSULIN 10/14/2016 RAN WILLINGHAM Ot Z79.899 OTHER RESIDENTIAL (CURRENT) DRUG THERAPY 11/06/2016 OMI BARTH MD, Ot E11.9 TYPE 2 DIABETES MELLITUS WITHOUT COMPLIC 11/06/2016 OMI BARTH MD, Ot I10 ESSENTIAL (PRIMARY) HYPERTENSION 11/06/2016 OMI BARTH MD Ot M25.562 PAIN IN LEFT KNEE 11/06/2016 OMI BARTH MD Ot M79.662 PAIN IN LEFT LOWER LEG 11/06/2016 OMI BARTH MD, Ot S89.92XA UNSPECIFIED INJURY OF LEFT LOWER LEG, IN 11/06/2016 OMI BARTH MD, Ot W07.XXXA FALL FROM CHAIR, INITIAL ENCOUNTER 11/06/2016 OMI BARTH MD Ot Y99.8 OTHER EXTERNAL CAUSE STATUS 11/06/2016 OMI BARTH MD, Ot Z79.4 RESIDENTIAL (CURRENT) USE OF INSULIN 11/06/2016 OMI BARTH MD Ot Z79.899 OTHER RESIDENTIAL (CURRENT) DRUG THERAPY 11/06/2016 OMI BARTH MD, Ot Z85.3 PERSONAL HISTORY OF MALIGNANT NEOPLASM O 11/06/2016 OMI BARTH MD, Ot Z90.12 ACQUIRED ABSENCE [...] STATUS 11/08/2016 OMI BARTH MD Ot Z79.4 RESIDENTIAL (CURRENT) USE OF INSULIN 11/08/2016 OMI BARTH MD Ot Z79.899 OTHER RESIDENTIAL (CURRENT) DRUG THERAPY 11/08/2016 OMI BARTH MD [...] STATUS 11/30/2016 OMI BARTH MD Ot Z79.4 RESIDENTIAL (CURRENT) USE OF INSULIN 11/30/2016 OMI BARTH MD Ot Z79.899 OTHER RESIDENTIAL (CURRENT) DRUG THERAPY 11/30/2016 OMI BARTH MD Ot Z85.3 PERSONAL HISTORY OF MALIGNANT NEOPLASM O 11/30/2016 OMI BARTH MD, Ot Z90.12 ACQUIRED ABSENCE OF LEFT BREAST AND NIPP 11/30/2016 OMI BARTH MD Ot Z96.652 PRESENCE OF LEFT ARTIFICIAL KNEE JOINT 12/01/2016 OMI BARTH MD Ot E11.9 TYPE 2 DIABETES MELLITUS WITHOUT COMPLIC 12/01/2016 OMI BARTH MD Ot I10 ESSENTIAL (PRIMARY) HYPERTENSION 12/01/2016 OMI BARTH MD, Ot M25.562 PAIN IN LEFT KNEE 12/01/2016 OMI BARTH MD, Ot M79.662 PAIN IN LEFT LOWER LEG 12/01/2016 OMI BARTH MD Ot S89.92XA UNSPECIFIED INJURY OF LEFT LOWER LEG, IN 12/01/2016 OMI BARTH MD Ot W07.XXXA FALL FROM CHAIR, INITIAL ENCOUNTER 12/01/2016 OMI BARTH MD Ot Y99.8 OTHER EXTERNAL CAUSE STATUS 12/01/2016 OMI BARTH MD, Ot 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 12/01/2016 OMI BARTH MD Ot Z79.899 OTHER RESIDENTIAL (CURRENT) DRUG THERAPY 12/01/2016 OMI BARTH MD, [...] G89.29 OTHER CHRONIC PAIN 01/25/2017 OMI BARTH MD Ot I10 ESSENTIAL (PRIMARY) HYPERTENSION 01/25/2017 OMI BARTH MD Ot M25.511 PAIN IN RIGHT SHOULDER 01/25/2017 OMI BARTH MD Ot M46.90 UNSPECIFIED INFLAMMATORY SPONDYLOPATHY, 01/25/2017 OMI BARTH MD Ot M54.6 PAIN IN THORACIC SPINE 01/25/2017 OMI BARTH MD Ot 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 01/25/2017 OMI BARTH MD, Ot Z98.890 OTHER SPECIFIED POSTPROCEDURAL STATES 05/16/2017 LYNN VILLAFANA APRN Ot E03 .9 HYPOTHYROIDISM, UNSPECIFIED 05/16/2017 LYNN VILLAFANA APRN Ot E11 .9 TYPE 2 DIABETES MELLITUS WITHOUT COMPLIC 05/16/2017 LYNN VILLAFANA APRN Ot E78.00 PURE HYPERCHOLESTEROLEMIA, UNSPECIFIED 05/16/2017 LYNN VILLAFANA APRN Ot F32 .9 MAJOR DEPRESSIVE DISORDER, SINGLE EPISOD 05/16/2017 LYNN VILLAFANA APRN Ot F41 .9 ANXIETY DISORDER, UNSPECIFIED 05/16/2017 LYNN VILLAFANA APRN Ot G57.01 LESION OF SCIATIC NERVE, RIGHT LOWER YAO 05/16/2017 LYNN VILLAFANA APRN Ot I10 ESSENTIAL (PRIMARY) HYPERTENSION 05/16/2017 LYNN VILLAFANA APRN Ot M79.604 PAIN IN RIGHT LEG 05/16/2017 LYNN VILLAFANA APRN Ot Z77.22 CNTCT W AND EXPSR TO ENVIRON TOBACCO SMO 05/16/2017 LYNN VILLAFANA APRN Ot Z79 .4 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 OF INSULIN 05/16/2017 LYNN VILLAFANA APRN Ot Z85 .3 PERSONAL HISTORY OF MALIGNANT NEOPLASM O 05/16/2017 LYNN VILLAFANA APRN Ot Z90.49 ACQUIRED ABSENCE OF OTHER SPECIFIED PART 05/16/2017 LYNN VILLAFANA APRN Ot Z90.710 ACQUIRED ABSENCE OF BOTH CERVIX AND UTER 05/16/2017 LYNN VILLAFANA APRN Ot Z90.89 ACQUIRED ABSENCE OF OTHER ORGANS 05/23/2017 LYNN VILLAFANA APRN Ot E03 .9 HYPOTHYROIDISM, UNSPECIFIED 05/23/2017 LYNN VILLAFANA APRN Ot E11 .9 TYPE 2 DIABETES MELLITUS WITHOUT COMPLIC 05/23/2017 LYNN VILLAFANA APRN Ot E78.00 PURE HYPERCHOLESTEROLEMIA, UNSPECIFIED 05/23/2017 LYNN VILLAFANA APRN Ot F32 .9 MAJOR DEPRESSIVE DISORDER, SINGLE EPISOD 05/23/2017 LYNN VILLAFANA APRN Ot F41 .9 ANXIETY DISORDER, UNSPECIFIED 05/23/2017 LYNN VILLAFANA APRN Ot G57.01 LESION OF SCIATIC NERVE, RIGHT LOWER YAO 05/23/2017 LYNN VILLAFANA APRN Ot I10 ESSENTIAL (PRIMARY) HYPERTENSION 05/23/2017 LYNN VILLAFANA APRN Ot M79.604 PAIN IN RIGHT LEG 05/23/2017 LYNN VILLAFANA APRN Ot Z77.22 CNTCT W AND EXPSR TO ENVIRON TOBACCO SMO 05/23/2017 LYNN VILLAFANA APRN Ot Z79 .4 RESIDENTIAL (CURRENT) USE OF INSULIN 05/23/2017 LYNN VILLAFANA APRN Ot Z85 .3 PERSONAL HISTORY OF MALIGNANT NEOPLASM O 05/23/2017 LYNN VILLAFANA APRN Ot Z90.49 ACQUIRED ABSENCE OF OTHER SPECIFIED PART 05/23/2017 LYNN VILLAFANA APRN Ot Z90.710 ACQUIRED ABSENCE OF BOTH CERVIX AND UTER 05/23/2017 LYNN VILLAFANA APRN Ot Z90.89 ACQUIRED ABSENCE OF OTHER ORGANS 02/10/2018 JESSICA SOSA MD Ot E03. 9 HYPOTHYROIDISM, UNSPECIFIED 02/10/2018 JESSICA SOSA MD Ot E11. 9 TYPE 2 DIABETES MELLITUS WITHOUT COMPLIC 02/10/2018 JESSICA SOSA MD Ot E78. 00 PURE HYPERCHOLESTEROLEMIA, UNSPECIFIED 02/10/2018 JESSICA SOSA MD Ot F32. 9 MAJOR DEPRESSIVE DISORDER, SINGLE EPISOD 02/10/2018 JESSICA SOSA MD Ot F41. 9 ANXIETY DISORDER, UNSPECIFIED 02/10/2018 JESSICA SOSA MD Ot H10. 9 UNSPECIFIED CONJUNCTIVITIS 02/10/2018 JESSICA SOSA MD Ot H57. 8 OTHER SPECIFIED DISORDERS OF EYE AND ADN 02/10/2018 JESSICA SOSA MD Ot H65. 93 UNSPECIFIED NONSUPPURATIVE OTITIS MEDIA, 02/10/2018 JESSICA SOSA MD Ot I10 ESSENTIAL (PRIMARY) HYPERTENSION 02/10/2018 JESSICA SOSA MD Ot I42. 9 CARDIOMYOPATHY, UNSPECIFIED 02/10/2018 JESSICA SOSA MD Ot Z79. 4 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 OF INSULIN 02/10/2018 JESSICA SOSA MD Ot Z82. 49 FAMILY HX OF ISCHEM HEART DIS AND OTH DI 02/10/2018 JESSICA SOSA MD Ot Z85. 3 PERSONAL HISTORY OF MALIGNANT NEOPLASM O 02/10/2018 JESSICA SOSA MD Ot Z87.440 PERSONAL HISTORY OF URINARY (TRACT) INFE 02/10/2018 JESSICA SOSA MD Ot Z87.448 PERSONAL HISTORY OF OTHER DISEASES OF UR 02/10/2018 JESSICA SOSA MD Ot Z88. 1 ALLERGY STATUS TO OTHER ANTIBIOTIC AGENT 02/10/2018 JESSICA SOSA MD Ot Z90. 11 ACQUIRED ABSENCE OF RIGHT BREAST AND NIP 02/10/2018 JESSICA SOSA MD Ot Z90.710 ACQUIRED ABSENCE OF BOTH CERVIX AND UTER 02/10/2018 JESSICA SOSA MD Ot Z90. 89 ACQUIRED ABSENCE OF OTHER ORGANS 02/12/2018 JESSICA SOSA MD Ot E03. 9 HYPOTHYROIDISM, UNSPECIFIED 02/12/2018 JESSICA SOSA MD Ot E11. 9 TYPE 2 DIABETES MELLITUS WITHOUT COMPLIC 02/12/2018 JESSICA SOSA MD Ot E78. 00 PURE HYPERCHOLESTEROLEMIA, UNSPECIFIED 02/12/2018 JESSICA SOSA MD Ot F32. 9 MAJOR DEPRESSIVE DISORDER, SINGLE EPISOD 02/12/2018 JESSICA SOSA MD Ot F41. 9 ANXIETY DISORDER, UNSPECIFIED 02/12/2018 JESSICA SOSA MD Ot H10. 9 UNSPECIFIED CONJUNCTIVITIS 02/12/2018 JESSICA SOSA MD Ot H57. 8 OTHER SPECIFIED DISORDERS OF EYE AND ADN 02/12/2018 JESSICA SOSA MD Ot H65. 93 UNSPECIFIED NONSUPPURATIVE OTITIS MEDIA, 02/12/2018 JESSICA SOSA MD Ot I10 ESSENTIAL (PRIMARY) HYPERTENSION 02/12/2018 JESSICA SOSA MD Ot I42. 9 CARDIOMYOPATHY, UNSPECIFIED 02/12/2018 JESSICA SOSA MD Ot Z79. 4 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 OF INSULIN 02/12/2018 JESSICA SOSA MD Ot Z82. 49 FAMILY HX OF ISCHEM HEART DIS AND OTH DI 02/12/2018 JESSICA SOSA MD Ot Z85. 3 PERSONAL HISTORY OF MALIGNANT NEOPLASM O 02/12/2018 JESSICA SOSA MD Ot Z87.440 PERSONAL HISTORY OF URINARY (TRACT) INFE 02/12/2018 JESSICA SOSA MD Ot Z87.448 PERSONAL HISTORY OF OTHER DISEASES OF UR 02/12/2018 JESSICA SOSA MD Ot Z88. 1 ALLERGY STATUS TO OTHER ANTIBIOTIC AGENT 02/12/2018 JESSICA SOSA MD Ot Z90. 11 ACQUIRED ABSENCE OF RIGHT BREAST AND NIP 02/12/2018 IAN CHIN, JESSICA Jorgensen Ot Z90.710 ACQUIRED ABSENCE OF BOTH CERVIX AND UTER 02/12/2018 JESSICA SOSA MD Ot Z90. 89 ACQUIRED ABSENCE OF OTHER ORGANS 02/21/2018 OMI BARTH MD, Ot E03.9 HYPOTHYROIDISM, UNSPECIFIED 02/21/2018 OMI BARTH MD Ot E11.9 TYPE 2 DIABETES MELLITUS WITHOUT COMPLIC 02/21/2018 OMI BARTH MD Ot E78.00 PURE HYPERCHOLESTEROLEMIA, UNSPECIFIED 02/21/2018 OMI BARTH MD Ot F32.9 MAJOR DEPRESSIVE DISORDER, SINGLE EPISOD 02/21/2018 OMI BARTH MD, Ot F41.9 ANXIETY DISORDER, UNSPECIFIED 02/21/2018 OMI BARTH MD, Ot I10 ESSENTIAL (PRIMARY) HYPERTENSION 02/21/2018 OMI BARTH MD, Ot M25.551 PAIN IN RIGHT HIP 02/21/2018 OMI BARTH MD, Ot R22.2 LOCALIZED SWELLING, MASS AND LUMP, TRUNK 02/21/2018 OMI BARTH MD, Ot Z79.4 RESIDENTIAL (CURRENT) USE OF INSULIN 02/21/2018 OMI BARTH MD, Ot Z85.3 PERSONAL HISTORY OF MALIGNANT NEOPLASM O 02/21/2018 OMI BARTH MD, Ot Z87.440 PERSONAL HISTORY OF URINARY (TRACT) INFE 02/21/2018 OMI BARTH MD, Ot Z88.1 ALLERGY STATUS TO OTHER ANTIBIOTIC AGENT 02/21/2018 OMI BARTH MD, Ot Z90.49 ACQUIRED ABSENCE OF OTHER SPECIFIED PART 02/21/2018 OMI BARTH MD, Ot Z90.710 ACQUIRED ABSENCE OF BOTH CERVIX AND UTER 02/22/2018 OMI BARTH MD, Ot E03.9 HYPOTHYROIDISM, UNSPECIFIED 02/22/2018 OMI BARTH MD, Ot E11.9 TYPE 2 DIABETES MELLITUS WITHOUT COMPLIC 02/22/2018 OMI BARTH MD Ot E78.00 PURE HYPERCHOLESTEROLEMIA, UNSPECIFIED 02/22/2018 OMI BARTH MD, Ot F32.9 MAJOR DEPRESSIVE DISORDER, SINGLE EPISOD 02/22/2018 OMI BARTH MD, Ot F41.9 ANXIETY DISORDER, UNSPECIFIED 02/22/2018 OMI BARTH MD, Ot I10 ESSENTIAL (PRIMARY) HYPERTENSION 02/22/2018 OMI BARTH MD, Ot M25.551 PAIN IN RIGHT HIP 02/22/2018 OMI BARTH MD Ot R22.2 LOCALIZED SWELLING, MASS AND LUMP, TRUNK 02/22/2018 OMI BARTH MD, Ot Z79.4 RESIDENTIAL (CURRENT) USE OF INSULIN 02/22/2018 OMI BARTH MD Ot Z85.3 PERSONAL HISTORY OF MALIGNANT NEOPLASM O 02/22/2018 OMI BARTH MD, Ot Z87.440 PERSONAL HISTORY OF URINARY (TRACT) INFE 02/22/2018 OMI BARTH MD Ot Z88.1 ALLERGY STATUS TO OTHER ANTIBIOTIC AGENT 02/22/2018 TAB CHIN, OMI Russell Ot Z90.49 ACQUIRED ABSENCE OF OTHER SPECIFIED PART 02/22/2018 OMI BARTH MD Ot Z90.710 ACQUIRED ABSENCE OF BOTH CERVIX AND UTER 05/22/2018 PHYLICIA KOTA Ot E03.9 HYPOTHYROIDISM, UNSPECIFIED 05/22/2018 BERNOT, KOTA Ot E11.9 TYPE 2 DIABETES MELLITUS WITHOUT COMPLIC 05/22/2018 PHLYICIA KOTA Ot E78.00 PURE HYPERCHOLESTEROLEMIA, UNSPECIFIED 05/22/2018 PHYLICIA KOTA Ot F32.9 MAJOR DEPRESSIVE DISORDER, SINGLE EPISOD 05/22/2018 PHYLICIA KOTA Ot F41.9 ANXIETY DISORDER, UNSPECIFIED 05/22/2018 BERNOT, KOTA Ot I10 ESSENTIAL (PRIMARY) HYPERTENSION 05/22/2018 SHEREEN WHATLEYIS Ot I42.9 CARDIOMYOPATHY, UNSPECIFIED 05/22/2018 [place] KOTA Ot M79.672 PAIN IN LEFT FOOT 05/22/2018 SHEREEN WHATLEYIS Ot Z77.22 CNTCT W AND EXPSR TO ENVIRON TOBACCO SMO 05/22/2018 PHYLICIA KOTA Ot 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 05/22/2018 PHYLICIA KOTA Ot Z82.49 FAMILY HX OF ISCHEM HEART DIS AND OTH DI 05/22/2018 SHEREEN WHATLEYIS Ot Z85.3 PERSONAL HISTORY OF MALIGNANT NEOPLASM O 05/22/2018 SHEREEN WHATLEYIS Ot Z87.440 PERSONAL HISTORY OF URINARY (TRACT) INFE 05/22/2018 SHEREEN WHATLEYIS Ot Z88.8 ALLERGY STATUS TO OTH DRUG/MEDS/BIOL SUB 05/22/2018 SHEREEN WHATLEYIS Ot Z90.11 ACQUIRED ABSENCE OF RIGHT BREAST AND NIP 05/22/2018 [place] KOTA Ot Z90.710 ACQUIRED ABSENCE OF BOTH CERVIX AND UTER 05/22/2018 [place] KOTA Ot Z90.89 ACQUIRED ABSENCE OF OTHER ORGANS 05/24/2018 SHEREEN WHATLEYIS Ot E03.9 HYPOTHYROIDISM, UNSPECIFIED 05/24/2018 SHEREEN WHATLEYIS Ot E11.9 TYPE 2 DIABETES MELLITUS WITHOUT COMPLIC 05/24/2018 PHYLICIA KOTA Ot E78.00 PURE HYPERCHOLESTEROLEMIA, UNSPECIFIED 05/24/2018 SHEREEN WHATLEYIS Ot F32.9 MAJOR DEPRESSIVE DISORDER, SINGLE EPISOD 05/24/2018 PHYLICIA KOTA Ot F41.9 ANXIETY DISORDER, UNSPECIFIED 05/24/2018 PHYLICIA KOTA Ot I10 ESSENTIAL (PRIMARY) HYPERTENSION 05/24/2018 SHEREEN WHATLEYIS Ot I42.9 CARDIOMYOPATHY, UNSPECIFIED 05/24/2018 SHEREEN WHATLEYIS Ot M79.672 PAIN IN LEFT FOOT 05/24/2018 SHEREEN WHATLEYIS Ot Z77.22 CNTCT W AND EXPSR TO ENVIRON TOBACCO SMO 05/24/2018 SHEREEN WHATLEYIS Ot 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 05/24/2018 SHEREEN WHATLEYIS Ot Z82.49 FAMILY HX OF ISCHEM HEART DIS AND OTH DI 05/24/2018 SHEREEN WHATLEYIS Ot Z85.3 PERSONAL HISTORY OF MALIGNANT NEOPLASM O 05/24/2018 SHEREEN WHATLEYIS Ot Z87.440 PERSONAL HISTORY OF URINARY (TRACT) INFE 05/24/2018 SHEREEN WHATLEYIS Ot Z88.8 ALLERGY STATUS TO OTH DRUG/MEDS/BIOL SUB 05/24/2018 BERNSHEREEN ACHARYAIS Ot Z90.11 ACQUIRED ABSENCE OF RIGHT BREAST AND NIP 05/24/2018 SHEREEN WHATLEYIS Ot Z90.710 ACQUIRED ABSENCE OF BOTH CERVIX AND UTER 05/24/2018 SHEREEN WHATLEYIS Ot Z90.89 ACQUIRED ABSENCE OF OTHER ORGANS 07/23/2018 KOTA WHATLEY Ot E03.9 HYPOTHYROIDISM, UNSPECIFIED 07/23/2018 SHEREEN WHATLEYIS Ot E11.9 TYPE 2 DIABETES MELLITUS WITHOUT COMPLIC 07/23/2018 KOTA WHATLEY Ot E78.00 PURE HYPERCHOLESTEROLEMIA, UNSPECIFIED 07/23/2018 KOTA WHATLEY Ot F32.9 MAJOR DEPRESSIVE DISORDER, SINGLE EPISOD 07/23/2018 KOTA WHATLEY Ot F41.9 ANXIETY DISORDER, UNSPECIFIED 07/23/2018 SHEREEN WHATLEYIS Ot I10 ESSENTIAL (PRIMARY) HYPERTENSION 07/23/2018 SHEREEN WHATLEYIS Ot I42.9 CARDIOMYOPATHY, UNSPECIFIED 07/23/2018 SHEREEN WHATLEYIS Ot M25.572 PAIN IN LEFT ANKLE AND JOINTS OF LEFT FO 07/23/2018 KOTA WHATLEY Ot S93.402A SPRAIN OF UNSPECIFIED LIGAMENT OF LEFT A 07/23/2018 KOTA WHATLEY Ot W01.0XXA FALL SAME LEV FROM SLIP/TRIP W/O STRIKE 07/23/2018 SHEREEN WHATLEYIS Ot Y93.01 ACTIVITY, WALKING, MARCHING AND HIKING 07/23/2018 KOTA WHATLEY Ot Z77.22 CNTCT W AND EXPSR TO ENVIRON TOBACCO SMO 07/23/2018 KOTA WHATLEY Ot 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 07/23/2018 KOTA WHATLEY Ot Z82.49 FAMILY HX OF ISCHEM HEART DIS AND OTH DI 07/23/2018 KOTA WHATLEY Ot Z85.3 PERSONAL HISTORY OF MALIGNANT NEOPLASM O 07/23/2018 SHEREEN WHATLEYIS Ot Z88.8 ALLERGY STATUS TO OTH DRUG/MEDS/BIOL SUB 07/23/2018 SHEREEN WHATLEYIS Ot Z90.11 ACQUIRED ABSENCE OF RIGHT BREAST AND NIP 07/23/2018 SHEREEN WHATLEYIS Ot Z90.49 ACQUIRED ABSENCE OF OTHER SPECIFIED PART 07/23/2018 SHEREEN WHATLEYIS Ot Z90.710 ACQUIRED ABSENCE OF BOTH CERVIX AND UTER 07/23/2018 SHEREEN WHATLEYIS Ot Z90.89 ACQUIRED ABSENCE OF OTHER ORGANS 07/23/2018 SHEREEN WHATLEYIS Ot Z98.890 OTHER SPECIFIED POSTPROCEDURAL STATES 07/25/2018 KOTA WHATLEY Ot E03.9 HYPOTHYROIDISM, UNSPECIFIED 07/25/2018 PHYLICIA KOTA Ot E11.9 TYPE 2 DIABETES MELLITUS WITHOUT COMPLIC 07/25/2018 SHEREEN WHATLEYIS Ot E78.00 PURE HYPERCHOLESTEROLEMIA, UNSPECIFIED 07/25/2018 PHYLICIA KOTA Ot F32.9 MAJOR DEPRESSIVE DISORDER, SINGLE EPISOD 07/25/2018 SHEREEN WHATLEYIS Ot F41.9 ANXIETY DISORDER, UNSPECIFIED 07/25/2018 SHEREEN WHATLEYIS Ot I10 ESSENTIAL (PRIMARY) HYPERTENSION 07/25/2018 SHEREEN WHATLEYIS Ot I42.9 CARDIOMYOPATHY, UNSPECIFIED 07/25/2018 SHEREEN WHATLEYIS Ot M25.572 PAIN IN LEFT ANKLE AND JOINTS OF LEFT FO 07/25/2018 KOTA WHATLEY Ot S93.402A SPRAIN OF UNSPECIFIED LIGAMENT OF LEFT A 07/25/2018 KOTA WHATLEY Ot W01.0XXA FALL SAME LEV FROM SLIP/TRIP W/O STRIKE 07/25/2018 KOTA WHATLEY Ot Y93.01 ACTIVITY, WALKING, MARCHING AND HIKING 07/25/2018 SHEREEN WHATLEYIS Ot Z77.22 CNTCT W AND EXPSR TO ENVIRON TOBACCO SMO 07/25/2018 SHEREEN WHATLEYIS Ot 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 07/25/2018 SHEREEN WHATLEYIS Ot Z82.49 FAMILY HX OF ISCHEM HEART DIS AND OTH DI 07/25/2018 KOTA WHATLEY Ot Z85.3 PERSONAL HISTORY OF MALIGNANT NEOPLASM O 07/25/2018 KOTA WHATLEY Ot Z88.8 ALLERGY STATUS TO OTH DRUG/MEDS/BIOL SUB 07/25/2018 SHEREEN WHATLEYIS Ot Z90.11 ACQUIRED ABSENCE OF RIGHT BREAST AND NIP 07/25/2018 SHEREEN WHATLEYIS Ot Z90.49 ACQUIRED ABSENCE OF OTHER SPECIFIED PART 07/25/2018 SHEREEN WHATLEYIS Ot Z90.710 ACQUIRED ABSENCE OF BOTH CERVIX AND UTER 07/25/2018 SHEREEN WHATLEYIS Ot Z90.89 ACQUIRED ABSENCE OF OTHER ORGANS 07/25/2018 SHEREEN WHATLEYIS Ot Z98.890 OTHER SPECIFIED POSTPROCEDURAL STATES 06/06/2019 [place] Ot M53.87 OTHER SPECIFIED DORSOPATHIES, LUMBOSACRA 06/06/2019 [place] RE[place] Ot Z98.1 ARTHRODESIS STATUS Procedures There is no data. Results Test Result Range Gram stain microscopy - 10/09/16 21:25 GRAM STAIN RESULT NO BACTERIA NRG Bacteria identification in wound by cult ure - 10/09/16 21:25 Bacteria identification in wound by culture [id number] NRG FREE TEXT EXTERNAL SENSITIVITY REPORTED 10/11/16 7:3 5 NRG QUANTITY OF GROWTH Moderate Growth NRG MRSA AGAR Screening test for MRSA is N EGATIVE (Final to follow) NRG CALL POSITIVES (F1 HELP) CALLED TO VERÓNICA GALLAGHER 7:45 BY [facility] Bacterial susceptibility panel - 7 21:25 Oxacillin susceptibility test by minimum inhibitory co ncentration >= NRG Gentamicin susceptibility test by minimum inhibitory c oncentration <= NRG Clindamycin susceptibility test by minimum inhibitory concentration <= NRG Erythromycin susceptibility test by minimum inhibitory concentration >= NRG Trimethoprim/sulfamethoxazole susceptibi lity test by minimum inhibitoryconcentration <= NRG Vancomycin susceptibility test by minimum inhibitory c oncentration 1 NRG Levofloxacin susceptibility test by minimum inhibitory concentration 0.5 NRG Rifampin susceptibility test by minimum inhibitory con centration <= NRG Tetracycline susceptibility test by minimum inhibitory concentration <= NRG Complete blood count (CBC) with automate d white blood cell (WBC) differential - 11/06/16 01:08 Blood leukocytes automated count (number/volume) 6.2 10*3/uL 4.3-11.0 Blood erythrocytes automated count (number/volume) 3.16 10*6/uL 4.35-5.85 Venous blood hemoglobin measurement (mass/volume) 8.8 g/dL 11.5-16.0 Blood hematocrit (volume fraction) 28 % 35-52 Automated erythrocyte mean corpuscular volume 90 [ foz_us] 80-99 Automated erythrocyte mean corpuscular h emoglobin (mass per erythrocyte) 28 pg 25-34 Automated erythrocyte mean corpuscular h emoglobin concentration measurement (mass/volume) 31 g/dL 32-36 Automated erythrocyte distribution width ratio 14. 5 % 10.0- 14.5 Automated blood platelet count (count/volume) 227 10*3/uL [...] 10*3 1.0-4.0 Blood monocytes automated count (number/volume) 0. 6 10*3 0.0-1.0 Automated eosinophil count 0.4 10*3/uL 0 .0-0.3 Automated blood basophil count (count/volume) 0.0 10*3/uL 0.0-0.1 Fibrin D-dimer FEU measurement in platel et poor plasma (mass/volume) - 11/06/16 01:08 Fibrin D-dimer FEU measurement in platelet poor plasma (mass/volume) 1.14 ug/mL 0.00-0.49 Serum or plasma C reactive protein measu rement (mass/volume) - 11/06/16 01:08 Serum or plasma C reactive protein measurement (mass/v olume) 1.79 mg/dL 0.00-0.50 Complete blood count (CBC) with automate d white blood cell (WBC) differential - 05/22/18 16:27 Blood leukocytes automated count (number/volume) 7.5 10*3/uL 4.3-11.0 Blood erythrocytes automated count (number/volume) 3.42 10*6/uL 4.35-5.85 Venous blood hemoglobin measurement (mass/volume) 10.4 g/dL 11.5-16.0 Blood hematocrit (volume fraction) 33 % 35-52 Automated erythrocyte mean corpuscular volume 96 [ foz_us] 80-99 Automated erythrocyte mean corpuscular h emoglobin (mass per erythrocyte) 30 pg 25-34 Automated erythrocyte mean corpuscular h emoglobin concentration measurement (mass/volume) 32 g/dL 32-36 Automated erythrocyte distribution width ratio 14. 4 % 10.0- 14.5 Automated blood platelet count (count/volume) 187 10*3/uL [...] 10*3 1.0-4.0 Blood monocytes automated count (number/volume) 0. 6 10*3 0.0-1.0 Automated eosinophil count 0.2 10*3/uL 0 .0-0.3 Automated blood basophil count (count/volume) 0.0 10*3/uL 0.0-0.1 Comprehensive metabolic panel - 05/22/18 16:27 Serum or plasma sodium measurement (moles/volume) 141 mmol/L 135-145 Serum or plasma potassium measurement (moles/volume) 4.1 mmol/L 3.6-5.0 Serum or plasma chloride measurement (moles/volume) 107 mmol/L 98-107 Carbon dioxide 24 mmol/L 21-32 Serum or plasma anion gap determination (moles/volume) 10 mmol/L 5-14 Serum or plasma urea nitrogen measurement (mass/volume ) 22 mg/dL 7-18 Serum or plasma creatinine measurement (mass/volume) 1.02 mg/dL 0.60-1.30 Serum or plasma urea nitrogen/creatinine mass ratio 22 NRG Serum or plasma creatinine measurement w ith calculation of estimated glomerular filtration rate 53 NRG Serum or plasma glucose measurement (mass/volume) 65 mg/dL 70-105 Serum or plasma calcium measurement (mass/volume) 9.3 mg/dL 8.5-10.1 Serum or plasma total bilirubin measurement (mass/volu me) 0.9 mg/dL 0.1-1.0 Serum or plasma alkaline phosphatase jaclyn surement (enzymatic activity/volume) 77 U/L 40-136 Serum or plasma aspartate aminotransfera se measurement (enzymatic activity/volume) 15 U/L 5-34 Serum or plasma alanine aminotransferase measurement (enzymatic activity/volume) 15 U/L 0-55 Serum or plasma protein measurement (mass/volume) 7.2 g/dL 6.4-8.2 Serum or plasma albumin measurement (mass/volume) 4.1 g/dL 3.2-4.5 CALCIUM CORRECTED 9.2 mg/dL 8.5-10.1 PT panel in platelet poor plasma by coag ulation assay - 05/22/18 16:27 Prothrombin time (PT) in platelet poor plasma by coagu lation assay 12.6 s 12.2-14.7 INR in platelet poor plasma or blood by coagulation as say 0.9 0.8-1.4 Activated partial thromboplastin time (a PTT) in platelet poor plasma bycoagulation assay - 05/22/18 16:27 Activated partial thromboplastin time (a PTT) in platelet poor plasma bycoagulation assay 26 s 24-35 Fibrin D-dimer FEU measurement in platel et poor plasma (mass/volume) - 05/22/18 16:27 Fibrin D-dimer FEU measurement in platelet poor plasma (mass/volume) 1.06 ug/mL 0.00-0.49 Encounters ACCT No. Visit Date/Time Discharge Status Pt. Type Provider Facility Loc./Unit Complaint [id number] 05/16/2019 10:44:00 23:59:59 CLS Outpatient SUJIT PARADA, [place] [facility] RAD RADICULOPATHY LUMBOSACR AL REGION [id number] 07/23/2018 16:18:00 18:14:00 DIS Emergency KOTA WHATLEY [facility] ER L FOOT AND ANKLE PAIN [id number] 05/22/2018 14:24:00 18:17:00 DIS Emergency KOTA WHATLEY [facility] ER LEFT FOOT PAIN [id number] 02/20/2018 23:19:00 018 00:46:00 DIS Emergency TAB CIHN, OMI Russell [facility] ER R HIP PAIN [id number] 02/10/2018 13:27:00 018 14:19:00 DIS Emergency IAN CHIN, JESSICA Jorgensen [facility] ER BLOOD IN R EYE,NOW HAS KNOT ON FOREHEAD [id number] 05/16/2017 19:31:00 20:33:00 DIS Emergency LYNN VILLAFANA APRN [facility] ER RT LEG/HIP PAIN [id number] 01/25/2017 22:18:00 017 23:52:00 DIS Emergency OMI BARTH MD [facility] ER RT SHOULDER HUGH N [id number] 11/06/2016 00:33:00 017 02:43:00 DIS Emergency OMI BARTH MD [facility] ER FALL INJ L LEG [id number] 10/09/2016 19:10:00 017 21:41:00 DIS Emergency RAN WILLINGHAM [facility] ER POSS BITE [id number] 06/27/2016 16:27:00 016 17:30:00 DIS Emergency RAN WILLINGHAM [facility] ER L HIP/LEG PAIN [id number] 02/09/2016 10:13:00 016 11:18:00 DIS Emergency MELBA REHMAN MD [facility] ER FALL/LEFT KNEE PAIN [id number] 01/19/2016 19:48:00 016 20:39:00 DIS Emergency RAN WILLINGHAM [facility] ER L FOOT PAIN [id number] 02/08/2015 23:50:00 015 14:00:00 DIS Inpatient VIKTOR ZIMMER MD [facility] SURGICAL ACUTE RENAL FAILURE;UTI [id number] 01/24/2015 23:45:00 015 00:20:00 DIS Emergency QUINTON CLARKE DO a [facility] ER L EYE PAIN,SWELLING [id number] 07/19/2014 10:37:00 014 12:02:00 DIS Emergency LYNN VILLAFANA APRN [facility] ER LEFT RIB/SHOULDER PAIN [id number] 12/20/2013 16:58:00 014 18:52:00 DIS Emergency RAN WILLINGHAM [facility] ER NECK PAIN
--- NOTE | 2019-10-26 04:38 | ED Fall/Injury ---
General Stated Complaint: FALL,LEFT ARM PAIN Source: patient Exam Limitations: no limitations History of Present Illness Date Seen by Provider: Oct 26, 2019 Time Seen by Provider: 04:23 Initial Comments Patient presents by private conveyance with her neighbor and chief complaint been hour prior to arrival she was walking through her kitchen lost her footing slid and fell down on her left side landing on her left shoulder left knee. She denies striking her head nor loss of consciousness. She takes aspirin 81 mg daily but no other blood thinners. She's having pain in her left shoulder and left elbow although she retains range of motion of her left elbow and wrist. She has some minor discomfort around her left knee which she has had historically replaced but she was able to stand on it. She is not having any cough, fever, chills, nausea, dysuria, nausea. She's had no surgery or previous injuries to her left upper extremity. She typically uses [place] as necessary for pain however she has not had a chance to take anything for pain since her fall. Patient rates the pain as a 6 out of 10. Allergies and Home Medications Allergies Coded Allergies: cephalexin (Verified Allergy, Intermediate, RASH, 01/19/16) Home Medications Alprazolam 0.5 Mg Tablet, 0.5 MG PO BID PRN for AGITATION, (Reported) Amlodipine Besylate 10 Mg Tablet, 10 MG PO DAILY, (Reported) Atorvastatin Calcium 10 Mg Tablet, 10 MG PO HS, (Reported) Cholecalciferol 5,000 Unit Capsule, 5,000 UNIT PO DAILY, (Reported) Ciprofloxacin HCl 5 Ml Drops, 2 DROPS OP TID 3 Drops Each Ear Prescribed by: JESSICA SOSA on 02/10/18 1409 Cyclobenzaprine HCl 5 Mg Tablet, 5 MG PO TID PRN for PAIN-MODERATE TO SEVERE Prescribed by: LYNN VILLAFANA on 05/16/17 1946 Hydrocodone Bit/Acetaminophen 1 Each Tablet, 1 EACH PO Q6H PRN for PAIN Prescribed by: OMI BORRERO on 11/06/16 0238 Hydrocodone Bit/Acetaminophen 1 Each Tablet, 1 EACH PO Q6H Prescribed by: OMI BORRERO on 02/21/18 0039 Hydrocodone Bit/Acetaminophen 1 Tab Tab, 1 EACH PO Q4-6HR PRN for PAIN-MODERATE Prescribed by: KOTA WHATLEY on 05/22/18 1735 Insulin Glargine,Hum.rec.anlog 100 Unit/1 Ml Cartridge, 20 UNIT SQ HS, (Reported) Oxybutynin Chloride 15 Mg Tab.osm.24, 15 MG PO DAILY, (Reported) Patient Home Medication List Home Medication List Reviewed: Yes Review of Systems Review of Systems Constitutional: No chills, No fever Eyes: Denies Blindness, Denies Drainage Ears, Nose, Mouth, Throat: denies ear pain, denies nose pain Respiratory: No cough, No short of breath Cardiovascular: No chest pain, No edema Gastrointestinal: No abdominal pain, No constipation, No diarrhea, No nausea, No vomiting Genitourinary: No dysuria, No frequency Musculoskeletal: see HPI; No back pain; joint pain All Other Systems Reviewed Negative Unless Noted: Yes Past Bhykitu-Corlvk-Tevzav Hx Patient Social History Alcohol Use: Denies Use Recreational Drug Use: No Smoking Status: Never a Smoker 2nd Hand Smoke Exposure: Yes Recent Foreign Travel: No Contact w/Someone Who Travel: No Recent Hopitalizations: Yes ( JUNE, ELEVATED k+) Immunizations Up To Date Tetanus Booster (TDap): Unknown Date of Influenza Vaccine: Jun 09, 2014 Seasonal Allergies Seasonal Allergies: No Past Medical History Surgeries: Yes (knee replacement x3, right mastectomy, back, hand, elbow surgery) Appendectomy, Bladder Surgery, Breast, Eye Surgery, Hysterectomy, Joint Replacement, Orthopedic, Thyroidectomy Respiratory: No Cardiac: Yes Cardiomyopathy, High Cholesterol, Hypertension Neurological: No 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, 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 Genitourinary: Yes Neurogenic Bladder, UTI-Chronic Gastrointestinal: No Musculoskeletal: Yes Arthritis, Chronic Back Pain Endocrine: Yes Hypothyroidsim, Diabetes, Non-Insulin dep Cataract Cancer: Yes Breast Psychosocial: Yes Anxiety, Depression Integumentary: No Blood Disorders: No Family Medical History Arthritis G8 BROTHER BRAIN ANEURYSM 19 MOTHER Hypertension G8 BROTHER G8 BROTHER G8 BROTHER Myocardial infarction 19 FATHER No Pertinent Family Hx Physical Exam Vital Signs Vital Signs - First Documented 10/26/19 04:26 Temp 36.5 Pulse 68 Resp 20 B/P (MAP) 171/76 (107) O2 Delivery Room Air Capillary Refill : Height, Weight, BMI Height: 5'2.00" Weight: 220lbs. 0oz. 99.917571ka; 41.33 BMI Method:Stated General Appearance: WD/WN, moderate distress HEENT: PERRL/EOMI, pharynx normal Neck: full range of motion, supple, normal inspection Cardiovascular: normal peripheral pulses, regular rate, rhythm Respiratory: no respiratory distress, no accessory muscle use Peripheral Pulses: 2+ Radial Pulses (R), 2+ Radial Pulses (L) Gastrointestinal: non tender, soft Pelvic: normal external exam, other (nontender bilateral hips) Back: normal inspection, no vertebral tenderness Extremities: normal range of motion (bilateral lower extremities and right upper extremity), other (tenderness over the left elbow and proximal left humeru s without overt deformity. Able to pronate and supinate the left forearm as well as flex and extend fully. Pain on movement of left shoulder.) Neurologic/Psychiatric: alert, normal mood/affect, oriented x 3 Skin: normal color, warm/dry Telephone Coma Score Best Eye Response: (4) Open Spontaneously Best Verbal Response: (5) Oriented Best Motor Response: (6) Obeys Commands [place]ar Total: 15 Progress/Results/Core Measures Results/Orders My Orders Orders - JESSICA SOSA Fentanyl Injection (Sublimaze Injection (10/26/19 04:45) Ct Head/Cervical Spine Wo (10/26/19 04:31) Shoulder, Left, 3 Views (10/26/19 04:31) Elbow, Left, 3 Views (10/26/19 04:31) Knee, Left, 3 Views (10/26/19 04:31) Shoulder, Left, 2 Views (10/26/19 05:38) Medications Given in ED Current Medications Medications Dose Ordered Sig/[place] Route Start Time Stop Time Status Last Admin Dose Admin Fentanyl Citrate 75 mcg ONCE ONCE IM 10/26/19 04:45 10/26/19 04:46 DC 10/26/19 04:37 75 MCG Vital Signs/I&O 10/26/19 04:26 Temp 36.5 Pulse 68 Resp 20 B/P (MAP) 171/76 (107) O2 Delivery Room Air Progress Progress Note : Time: 04:37 Progress Note Plan to get a CT of the head and neck as well as x-ray of the left shoulder, elbow and left knee to assess the prosthetic hardware. Fentanyl 75 g IM. Diagnostic Imaging Diagonstic Imaging: CT (without IV contrast) Plain Films/CT/US/NM/MRI: c-spine, head Comments No acute fracture, midline shift, tumor, hemorrhage. No C-spine malalignment or fracture acutely. Reviewed: Reviewed [place] Study, Reviewed by Me Diagonstic Imaging: Xray Plain Films/CT/US/NM/MRI: elbow (left) Comments No acute osseous abnormality or dislocation Diagonstic Imaging: Xray Plain Films/CT/US/NM/MRI: other (left shoulder) Comments Anterior dislocation of the left shoulder Reviewed: Reviewed by Me Diagonstic Imaging: Xray Plain Films/CT/US/NM/MRI: knee (left) Comments No acute fracture, dislocation or loosening of the hardware. Reviewed: Reviewed by Me Diagonstic Imaging: Xray Plain Films/CT/US/NM/MRI: other (left shoulder 2 view) Comments No interval fracture. Good position of the proximal humerus in the glenoid fossa. Reviewed: Reviewed by Me Departure Impression Primary Impression: Fall Qualified Codes: W19.XXXA - Unspecified fall, initial encounter Additional Impressions: Left knee pain Qualified Codes: M25.562 - Pain in left knee Closed anterior dislocation of left shoulder Qualified Codes: S43.015A - Anterior dislocation of left humerus, initial encounter Disposition: HOME, SELF-CARE Condition: Improved Departure-Patient Inst. Decision time for Depature: 05:56 Referrals: VANGIE BLEDSOE DO (PCP/Family) Primary Care Physician Patient Instructions: Shoulder Dislocation (DC) Add. Discharge Instructions: While he did not have a fracture you did dislocate your left shoulder and this can cause quite a bit of pain and damage to the ligaments of your shoulder. For the next 2 weeks you should stay in the sling and in one to 2 weeks you should follow-up with the orthopedic surgeon of your choosing. If you are having significant pain not controlled by Tylenol or ibuprofen then you can try heating pads, topical creams. If this does not work then hydrocodone one tablet every 6 hours as needed. Hydrocodone will cause constipation and can also contribute to drowsiness and should be used with caution. You can use Jaspreet aLAX once or twice a day to combat constipation. You can follow-up with your primary care doctor for help with pain management as well. Scripts Hydrocodone/Acetaminophen (Hydrocodone/Acetaminophen 5 MG/325 MG TAB) 1 Each Tablet 1 TAB PO Q6H PRN for PAIN-BREAKTHROUGH MDD 10 TABS, #15 TAB 0 Refills Prov: IAN,JESSICA J 10/26/19 JESSICA SOSA Oct 26, 2019 04:38
[2019-10-26] MEDS ORDERED: fentaNYL INJECTION 100 MCG/2 ML AMP IM ONE (04:45)
[2019-10-26] MEDS ORDERED: HYDR-4226 PO (05:59)
[2019-10-26 06:04] VITALS: BP 165/72
--- NOTE | 2019-10-26 06:49 | Diagnostic Imaging Report ---
PROCEDURE: CT head and CT cervical spine without contrast. TECHNIQUE: Multiple contiguous axial images were obtained through the brain and cervical spine without the use of intravenous contrast. Sagittal and coronal reformations through the cervical spine were then performed. Auto Exposure Controls were utilized during the CT exam to meet ALARA standards for radiation dose reduction. INDICATION: Fall. COMPARISON: None. FINDINGS: CT HEAD: No intracranial hemorrhage, mass effect, hydrocephalus or extra-axial fluid collections. No CT evidence of a territorial infarction. Osseous structures are intact. The paranasal sinuses and mastoids are clear. CT cervical spine: Normal alignment. Vertebral body heights preserved. No fractures. Degenerative endplate changes appear to result in at least moderate spinal canal narrowing at C3-C4 and C4-C5. Mild interstitial prominence and groundglass opacities in the lung apices. The visualized paravertebral soft tissues are unremarkable. IMPRESSION: 1. No acute intracranial or cervical spine CT findings. 2. 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 This could be better evaluated with CT myelogram or MRI if clinically warranted. 3. Mild interstitial prominence and groundglass opacities in the lung apices may be due to fluid overload. Dictated by: Dictated on workstation # [id number]
--- NOTE | 2019-10-26 07:03 | Diagnostic Imaging Report ---
HISTORY: Left shoulder pain, fall. TECHNIQUE: 3 views of the left shoulder. COMPARISON: None FINDINGS: There is anterior dislocation of the left shoulder. There are degenerative changes in the glenohumeral and acromioclavicular joints. No acute fracture is seen in the left shoulder. IMPRESSION: 1. Anterior dislocation of the left glenohumeral joint with no acute fracture seen. Dictated by: Dictated on workstation # [id number]
--- NOTE | 2019-10-26 07:05 | Diagnostic Imaging Report ---
INDICATION: Fall, left elbow pain. TECHNIQUE: 3 views of the left elbow. COMPARISON: None FINDINGS: No acute fracture or dislocation is seen in the left elbow. The lateral view is suboptimally rotated to evaluate for effusion. Alignment appears normal. There are mild degenerative changes in the left elbow. IMPRESSION: 1. No acute osseous abnormality is seen in the left elbow. Dictated by: Dictated on workstation # [id number]
--- NOTE | 2019-10-26 07:09 | Diagnostic Imaging Report ---
INDICATION: Pain FINDINGS: Total knee arthroplasty performed. No radiodense loose body. No fracture. No bony destruction. IMPRESSION: No acute appearing abnormality Dictated by: Dictated on workstation # [id number]
--- NOTE | 2019-10-26 07:26 | Diagnostic Imaging Report ---
INDICATION: Postreduction. Compared earlier the same date. FINDINGS: There has been successful interval reduction of the previous anterior subcoracoid glenohumeral dislocation. IMPRESSION: Successful reduction of prior anterior glenohumeral dislocation. Dictated by: Dictated on workstation # [id number]
== END 2019-10-26 06:04 | disposition home or self-care (01) ==
LOC: EDUNIT# 04:09 → ER 04:12
DX: S43.015A Anterior dislocation of left humerus, initial encounter (principal); M25.562 Pain in left knee; I11.9 Hypertensive heart disease without heart failure; I42.9 Cardiomyopathy, unspecified; E78.00 Pure hypercholesterolemia, unspecified; E11.9 Type 2 diabetes mellitus without complications; F41.9 Anxiety disorder, unspecified; F32.9 Major depressive disorder, single episode, unspecified; Z85.3 Personal history of malignant neoplasm of breast; Z79.4 Long term (current) use of insulin; Z82.49 Family history of ischemic heart disease and other diseases of the circulatory system; Z79.82 Long term (current) use of aspirin; W01.10XA Fall on same level from slipping, tripping and stumbling with subsequent striking against unspecified object, initial encounter; Y93.01 Activity, walking, marching and hiking
CPT/HCPCS: 70450; 72125; 73030; 73080; 73562; 96372

== ENCOUNTER 2020-03-24 22:34 | Emergency (ER) | payer MEDICARE, MEDICAID ==
[~2020-03-24 22:34] MED LIST changes: +HYDR-4226 PO
[2020-03-25] MEDS ORDERED: RX-HYDROCODONE/APAP 5/325 MG #4 TAB PK PO ONE (01:37)
[2020-03-25] MEDS ORDERED: TETANUS,DIPTH,PERTUSS P/F (BOOSTRIX) 0.5 ML VIAL IM ONE (01:42)
--- NOTE | 2020-03-26 13:12 | Diagnostic Imaging Report ---
INDICATION: Fall, chest pain 2 views of the chest shows cardiomegaly with normal vascularity. The lungs are clear. There is no effusion or pneumothorax. There is scoliosis of the spine with no acute bony abnormality seen. IMPRESSION: Cardiomegaly. Scoliosis. The chest is similar to a study from 07/19/2014. Dictated by: Dictated on workstation # [id number]
--- NOTE | 2020-03-26 13:33 | Diagnostic Imaging Report ---
EXAMINATION: Left wrist 3 views on 03/25 at 12:58 AM. INDICATION: Fall with left wrist pain. 3 views of the left wrist were obtained. There is a lucency extending through the distal radius involving the radial styloid. Fracture line does not appear to extend to articular surface. No displacement or angulation is seen. Distal ulna appears intact. 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 Carpus does show degenerative changes at the triscaphe and 1st CMC joints. IMPRESSION: Nondisplaced distal radius fracture. Dictated by: Dictated on workstation # [id number]
--- NOTE | 2020-03-26 15:51 | Diagnostic Imaging Report ---
INDICATION: Fall, left hand pain 3 views of the left hand shows a fracture through the radial styloid which is in satisfactory alignment. There are degenerative changes of the carpal bones and interphalangeal joints. There is irregularity to the tuft of the 4th digit suspicious for a nondisplaced fracture at this site with no other fracture or acute abnormality seen. IMPRESSION: Possible nondisplaced fracture through the tuft of the left 4th digit. A nondisplaced intra-articular fracture of the distal radial styloid. Dictated by: Dictated on workstation # [id number]
--- NOTE | 2020-03-26 15:52 | Diagnostic Imaging Report ---
EXAMINATION: Left ribs 3 views on 03/25/2010 at 1:02 AM INDICATION: Fall complaining of left-sided rib soreness. There appears to be a nondisplaced fracture involving the left lateral approximately 7th rib. No other rib fractures are identified. No parenchymal contusion, effusion or pneumothorax is detected. IMPRESSION: Findings suggestive of nondisplaced left 7th rib fracture. Dictated by: Dictated on workstation # [id number]
--- NOTE | 2020-03-28 02:55 | ED Fall/Injury ---
General Stated Complaint: HEAD LAC/L ARM PAIN;FALL Source: patient History of Present Illness Date Seen by Provider: Mar 24, 2020 Time Seen by Provider: 23:45 Initial Comments PT ARRIVES VIA POV FROM HOME PT STATES SHE WAS WALKING OUTSIDE AND TRIPPED AND FELL FORWARD ONTO PAVEMENT DID HIT HER LEFT BROW ON PAVEMENT NO LOSS OF CONSCIOUSNESS NO NECK OR BACK PAIN NO HEADACHE NO DIZZINESS NO VISION CHANGES NO NAUSEA/VOMITING C/O PAIN TO LEFT HAND AND WRIST NO PARESTHESIAS OR MOTOR DEFICITS C/O MILD PAIN TO LEFT RIBS NO SHORTNESS OF BREATH OR PAIN WITH BREATHING NO HIP OR LEG PAIN PT IS NOT ON BLOOD THINNERS, TAKES 81 MG ASPIRIN DAILY. LAST TETANUS SHOT WAS YEARS AGO. 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 [place] Allergies and Home Medications Allergies Coded Allergies: cephalexin (Verified Allergy, Intermediate, RASH, 01/19/16) Home Medications Alprazolam 0.5 Mg Tablet, 0.5 MG PO BID PRN for AGITATION, (Reported) Amlodipine Besylate 10 Mg Tablet, 10 MG PO DAILY, (Reported) Atorvastatin Calcium 10 Mg Tablet, 10 MG PO HS, (Reported) Cholecalciferol 5,000 Unit Capsule, 5,000 UNIT PO DAILY, (Reported) Ciprofloxacin HCl 5 Ml Drops, 2 DROPS OP TID 3 Drops Each Ear Prescribed by: JESSICA SOSA on 02/10/18 1409 Cyclobenzaprine HCl 5 Mg Tablet, 5 MG PO TID PRN for PAIN-MODERATE TO SEVERE Prescribed by: LYNN VILLAFANA on 05/16/17 1946 Hydrocodone Bit/Acetaminophen 1 Each Tablet, 1 EACH PO Q6H PRN for PAIN Prescribed by: OMI BORRERO on 11/06/16 0238 Hydrocodone Bit/Acetaminophen 1 Each Tablet, 1 EACH PO Q6H Prescribed by: OMI BORRERO on 02/21/18 0039 Hydrocodone Bit/Acetaminophen 1 Tab Tab, 1 EACH PO Q4-6HR PRN for PAIN-MODERATE Prescribed by: KOTA WHATLEY on 05/22/18 1735 Hydrocodone/Acetaminophen 1 Each Tablet, 1 TAB PO Q6H PRN for PAIN-BREAKTHROUGH Prescribed by: JESSICA SOSA on 10/26/19 0559 Insulin Glargine,Hum.rec.anlog 100 Unit/1 Ml Cartridge, 20 UNIT SQ HS, (Reported) Oxybutynin Chloride 15 Mg Tab.osm.24, 15 MG PO DAILY, (Reported) Patient Home Medication List Home Medication List Reviewed: Yes Review of Systems Review of Systems Constitutional: no symptoms reported Eyes: No Symptoms Reported Ears, Nose, Mouth, Throat: no symptoms reported Respiratory: no symptoms reported Cardiovascular: no symptoms reported Gastrointestinal: no symptoms reported Genitourinary: no symptoms reported Musculoskeletal: see HPI Skin: other (ABRASION TO LEFT BROW/FOREHEAD) Psychiatric/Neurological: No Symptoms Reported; Denies Headache, Denies Numbness, Denies Paresthesia, Denies Seizure, Denies Tingling, Denies Weakness Past Ssxrejc-Tmkluf-Gmfpaq Hx Patient Social History Alcohol Use: Denies Use Recreational Drug Use: No Smoking Status: Never a Smoker 2nd Hand Smoke Exposure: Yes Recent Foreign Travel: No Contact w/Someone Who Travel: No Recent Hopitalizations: No Immunizations Up To Date Tetanus Booster (TDap): Unknown Date of Influenza Vaccine: Jun 09, 2014 Seasonal Allergies Seasonal Allergies: No Past Medical History Surgeries: Yes (knee replacement x3, right mastectomy, back, hand, elbow surgery) Appendectomy, Bladder Surgery, Breast, Eye Surgery, Hysterectomy, Joint Replacement, Orthopedic, Thyroidectomy Respiratory: No Cardiac: Yes Cardiomyopathy, High Cholesterol, Hypertension Neurological: No 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, 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 Genitourinary: Yes (NO DIALYSIS) Renal Failure, Neurogenic Bladder, UTI-Chronic Gastrointestinal: No Musculoskeletal: Yes Arthritis, Chronic Back Pain Endocrine: Yes Hypothyroidsim, Diabetes, Non-Insulin dep HEENT: Yes Cataract Cancer: Yes Breast Did You Recieve Any Treatments: Yes What Type of Treatment Did You: Surgical Intervention Psychosocial: Yes Anxiety, Depression Integumentary: No Blood Disorders: No Family Medical History Arthritis G8 BROTHER BRAIN ANEURYSM 19 MOTHER Hypertension G8 BROTHER G8 BROTHER G8 BROTHER Myocardial infarction 19 FATHER No Pertinent Family Hx PSH: -RIGHT ROTATOR CUFF SURGERY -BILATERAL CARPAL TUNNEL REPAIR -BACK SURGERY/LUMBAR SPINE -RIGHT TIB/FIB/ANKLE FRACTURE REPAIR -BILATERAL TOTAL KNEE REPLACEMENTS -APPENDECTOMY -RIGHT MASTECTOMY WITH RECONSTRUCTIVE SURGERY Physical Exam Vital Signs Capillary Refill : Height, Weight, BMI Height: 5'2.00" Weight: 220lbs. 0oz. 99.387059sn; 39.00 BMI Method:Stated General Appearance: WD/WN, no apparent distress, obese HEENT: PERRL/EOMI, normal ENT inspection, TMs normal, pharynx normal, other (MINOR ABRASION TO LEFT BROW/FOREHEAD AREA. NO BLEEDING) Neck: non-tender, full range of motion, supple, normal inspection Cardiovascular: regular rate, rhythm, no murmur Respiratory: normal breath sounds, no respiratory distress, no accessory muscle use, other (MILD LEFT ANTERIOR/LATERAL CHEST TENDERNESS. NO CREPITANCE OR SUB Q AIR. ) Gastrointestinal: normal bowel sounds, non tender, soft, no organomegaly Back: normal inspection, no CVA tenderness, no vertebral tenderness Extremities: normal capillary refill, other (TENDERNESS AND SLIGHT SWELLING TO LEFT WRIST, MILD TENDERNESS TO LEFT METACARPALS. DISTAL MOTOR/SENSORY/VASCULAR INTACT. ) Neurologic/Psychiatric: can piler II-XII nml as tested, no motor/sensory deficits, alert, normal mood/affect, oriented x 3 Skin: normal color, warm/dry Procedures/Interventions Splinting and Joint Reduction : Splints: Colles Wrist Splint Application: Short Arm Progress/Results/Core Measures Results/Orders My Orders Orders - QUINTON CLARKE DO Chest Pa/Lat (2 View) (03/25/20 ) Hand, Left, 3 Views (03/25/20 ) Ribs, Left 2-3 Views (03/25/20 ) Wrist, Left, 3 Views Or More (03/25/20 ) Rx-Hydrocodone/Apap 5-325 Mg (Rx-Vicodin (03/25/20 01:37) Dipht,Pertuss(Acell),Tet Adult (Boostrix (03/25/20 01:42) Ct Head/Face/Cervical Wo (03/25/20 ) Vaccine Administration Single (03/24/20 ) Progress Progress Note : Progress Note UNEVENTFUL ER STAY Diagnostic Imaging Comments CXR/LEFT RIBS--NO ACUTE PROCESS, PENDING RADIOLOGIST REVIEW LEFT WRIST AND HAND--FX DISTAL RADIUS, PENDING RADIOLOGIST REVIEW CT HEAD/MAXILLOFACIALS/CERVICAL SPINE--NO ACUTE PROCESS, PER [facility] VIA FAX AT 0125 Reviewed: Reviewed by Me Departure Impression Primary Impression: S/P FALL FROM STANDING Additional Impressions: Closed head injury without loss of consciousness Closed fracture of left distal radius Contusion of left chest wall ABRASION LEFT BROW Rwcvxobgbb-ztgysiyxx-eyergls (DPT) vaccination administered at current visit Disposition: HOME, SELF-CARE Condition: Stable Departure-Patient Inst. Referrals: VANGIE BLEDSOE DO (PCP) Primary Care Physician VANGIE MUÑOZ MD Add. Discharge Instructions: SEE WRITTEN DISCHARGE INSTRUCTIONS AND RX . QUINTON CLARKE DO Mar 28, 2020 02:55
== END 2020-03-25 01:45 | disposition home or self-care (01) ==
LOC: ER 22:34 → EDUNIT# 22:34 → ER 03-25 01:45
DX: S09.90XA Unspecified injury of head, initial encounter (principal); S52.502A Unspecified fracture of the lower end of left radius, initial encounter for closed fracture; S20.212A Contusion of left front wall of thorax, initial encounter; S00.81XA Abrasion of other part of head, initial encounter; I10 Essential (primary) hypertension; E11.9 Type 2 diabetes mellitus without complications; G89.29 Other chronic pain; M54.9 Dorsalgia, unspecified; E78.00 Pure hypercholesterolemia, unspecified; F32.9 Major depressive disorder, single episode, unspecified; F41.9 Anxiety disorder, unspecified; Z79.4 Long term (current) use of insulin; Z23 Encounter for immunization; Z79.82 Long term (current) use of aspirin; Z85.3 Personal history of malignant neoplasm of breast; Z88.1 Allergy status to other antibiotic agents; Z82.49 Family history of ischemic heart disease and other diseases of the circulatory system; W01.198A Fall on same level from slipping, tripping and stumbling with subsequent striking against other object, initial encounter
CPT/HCPCS: 70450; 70486; 71046; 71100; 72125; 73110; 73130; 90471

== ENCOUNTER 2021-12-10 19:42 | Emergency (ER) | payer MEDICARE, MEDICAID ==
[~2021-12-10] VITALS: Ht 93 cm; Wt 167.0 kg
[~2021-12-10 19:42] MED LIST changes: -ISM60TCR; +ISOS60TA63
[2021-12-10 20:29] LABS: BASOPHILS % (AUTO) 0 % (0-10); EOSINOPHILS # (AUTO) 0.4 10^3/uL (0.0-0.3); EOSINOPHILS % (AUTO) 6 % (0-10); HEMATOCRIT 29 % (35-52); HEMOGLOBIN 9.1 g/dL (11.5-16.0); LYMPHOCYTES # (AUTO) 1.2 10^3/uL (1.0-4.0); LYMPHOCYTES % (AUTO) 17 % (12-44); MEAN CORPUSCULAR HEMOGLOBIN 30 pg (25-34); MEAN CORPUSCULAR HGB CONC 31 g/dL (32-36); MEAN CORPUSCULAR VOLUME 96 fL (80-99); MEAN PLATELET VOLUME 10.8 fL (9.0-12.2); MONOCYTES # (AUTO) 0.6 10^3/uL (0.0-1.0); MONOCYTES % (AUTO) 9 % (0-12); NEUTROPHILS # (AUTO) 4.8 10^3/uL (1.8-7.8); NEUTROPHILS % (AUTO) 68 % (42-75); PLATELET COUNT 176 10^3/uL (130-400)
[2021-12-10] MEDS ORDERED: ASPIRIN 81 MG CHEW (CHILDREN'S ASA) PO ONE (20:30)
--- NOTE | 2021-12-10 20:35 | ED Chest Pain ---
General Chief Complaint: Cardiac/General Problems Stated Complaint: SHOULDER PAIN Source: patient Exam Limitations: no limitations History of Present Illness Date Seen by Provider: December 10, 2021 Time Seen by Provider: 20:33 Initial Comments To ER with c/o left chest wall, left neck, left arm pain since yesterday. No known injury. Area is quite tender to palpation. No soa, no fevers. No history of this. Timing/Duration: 24 hours Severity/Quality: moderate Location: central Radiation: no radiation Activities at Onset: none ASA po FREIGHT CHECKER: No NTG SL FREIGHT CHECKER: No Associated Symptoms: denies symptoms Allergies and Home Medications Allergies Coded Allergies: cephalexin (Verified Allergy, Intermediate, RASH, 01/19/16) Patient Home Medication List Home Medication List Reviewed: Yes Alprazolam (Xanax) 0.5 Mg Tablet, 0.5 MG PO BID PRN for AGITATION, (Reported) Entered as Reported by: MIKA HEMPHILL on 12/20/131716 Amlodipine Besylate (Amlodipine Besylate) 10 Mg Tablet, 10 MG PO DAILY, (Reported) Entered as Reported by: KASANDRA RODRIGUEZ on 02/09/15 1146 Atorvastatin Calcium (Lipitor 10 Mg) 10 Mg Tablet, 10 MG PO HS, (Reported) Entered as Reported by: MIKA HEMPHILL on 12/20/131716 Cholecalciferol (Vitamin D3) 5,000 Unit Capsule, 5,000 UNIT PO DAILY, (Reported) Entered as Reported by: MIKA HEMPHILL on 12/20/131716 Ciprofloxacin HCl (Ciloxan) 5 Ml Drops, 2 DROPS OP TID Prescribed by: JESSICA SOSA on 02/10/18 1409 Cyclobenzaprine HCl (Cyclobenzaprine HCl) 5 Mg Tablet, 5 MG PO TID PRN for PAIN- MODERATE TO SEVERE Prescribed by: LYNN VILLAFANA on 05/16/171945 Furosemide (Furosemide) 40 Mg Tablet, (Reported) Entered as Reported by: MIKA HEMPHILL on 05/16/171943 Hydrocodone Bit/Acetaminophen (Lortab 5 Mg Tablet) 1 Each Tablet, 1 EACH PO Q6H PRN for PAIN Prescribed by: OMI BORRERO on 11/06/16 0238 Hydrocodone Bit/Acetaminophen (Lortab 5 Mg Tablet) 1 Each Tablet, 1 EACH PO Q6H Prescribed by: OMI BORRERO on 02/21/18 0039 Hydrocodone Bit/Acetaminophen (Lortab 5 Mg Tablet) 1 Tab Tab, 1 EACH PO Q4-6HR PRN for PAIN-MODERATE Prescribed by: KOTA WHATLEY on 05/22/18 1735 Hydrocodone/Acetaminophen (Hydrocodone/Acetaminophen 5 MG/325 MG TAB) 1 Each Tablet, 1 TAB PO Q6H PRN for PAIN-BREAKTHROUGH Prescribed by: JESSICA SOSA on 10/26/19 0559 Insulin Glargine,Hum.rec.anlog (Lantus) 100 Unit/1 Ml Cartridge, 20 UNIT SQ HS, (Reported) Entered as Reported by: MIKA HEMPHILL on 12/20/131716 Isosorbide Mononitrate (Isosorbide Mononitrate ER) 60 Mg Tab, (Reported) Entered as Reported by: MIKA HEMPHILL on 05/16/171943 Metformin HCl (Metformin HCl) 1,000 Mg Tablet, (Reported) Entered as Reported by: MIKA HEMPHILL on 05/16/171943 Naproxen (Naproxen) 500 Mg Tablet, (Reported) Entered as Reported by: MIKA HEMPHILL on 05/16/171943 Oxybutynin Chloride (Oxybutynin Chloride Xl) 15 Mg Tab.osm.24, 15 MG PO DAILY, (Reported) Entered as Reported by: MIKA HEMPHILL on 12/20/131716 Paroxetine HCl (Paroxetine HCl) 30 Mg Tablet, (Reported) Entered as Reported by: MIKA HEMPHILL on 05/16/171943 Valsartan (Valsartan) 320 Mg Tablet, (Reported) Entered as Reported by: MIKA HEMPHILL on 05/16/171943 Review of Systems Review of Systems Constitutional: see HPI EENTM: No Symptoms Reported Respiratory: No Symptoms Reported Cardiovascular: See HPI, Chest Pain Gastrointestinal: See HPI; Denies Abdominal Pain Genitourinary: No Symptoms Reported Musculoskeletal: no symptoms reported Skin: no symptoms reported Psychiatric/Neurological: No Symptoms Reported Endocrine: No Symptoms Reported Past Rwdpfjx-Ytpyqm-Uoisdh Hx Patient Social History Tobacco Use?: No Use of E-Cig and/or Vaping dev: No Substance use?: No Alcohol Use?: No Pt feels they are or have been: No Immunizations Up To Date Tetanus Booster (TDap): Unknown Influenza Vaccine Up-to-Date: Yes; Up-to-Date First/Initial COVID19 Vaccinat: PFIZER Second COVID19 Vaccination Eladio: [place] Seasonal Allergies Seasonal Allergies: No Past Medical History Surgeries: Yes (knee replacement x3, right mastectomy, back, hand, elbow surgery) Appendectomy, Bladder Surgery, Breast, Eye Surgery, Hysterectomy, Joint Replacement, Orthopedic, Thyroidectomy Respiratory: No Cardiac: Yes Cardiomyopathy, High Cholesterol, Hypertension Neurological: No 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, 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 Genitourinary: Yes (NO DIALYSIS) Renal Failure, Neurogenic Bladder, UTI-Chronic Gastrointestinal: No Musculoskeletal: Yes Arthritis, Chronic Back Pain Endocrine: Yes Hypothyroidsim, Diabetes, Non-Insulin dep HEENT: Yes Cataract Cancer: Yes Breast Did You Recieve Any Treatments: Yes What Type of Treatment Did You: Surgical Intervention Psychosocial: Yes Anxiety, Depression Integumentary: No Blood Disorders: No Family Medical History Arthritis G8 BROTHER BRAIN ANEURYSM 19 MOTHER Hypertension G8 BROTHER G8 BROTHER G8 BROTHER Myocardial infarction 19 FATHER No Pertinent Family Hx PSH: -RIGHT ROTATOR CUFF SURGERY -BILATERAL CARPAL TUNNEL REPAIR -BACK SURGERY/LUMBAR SPINE -RIGHT TIB/FIB/ANKLE FRACTURE REPAIR -BILATERAL TOTAL KNEE REPLACEMENTS -APPENDECTOMY -RIGHT MASTECTOMY WITH RECONSTRUCTIVE SURGERY Physical Exam Vital Signs Vital Signs - First Documented 12/10/21 20:15 Temp 36.3 Pulse 80 Resp 20 B/P (MAP) 180/81 (114) Pulse Ox 96 O2 Delivery Room Air Capillary Refill : Height, Weight, BMI Height: 5'2.00" Weight: 220lbs. 0oz. 99.708781sy; 39.00 BMI Method:Stated General Appearance: No Apparent Distress, WD/WN Neck: Full Range of Motion, Normal Inspection Respiratory: No Accessory Muscle Use, No Respiratory Distress, Other (left chest wall tender to palpation. No rash or lesions. ) Cardiovascular: Regular Rate, Rhythm, Normal Peripheral Pulses Gastrointestinal: Normal Bowel Sounds, Non Tender, Soft Extremity: Normal Capillary Refill, Normal Inspection Neurologic/Psychiatric: Alert, Oriented x3 Skin: Normal Color, Warm/Dry Progress/Results/Core Measures Results/Orders Lab Results Laboratory Tests Test 12/10/21 20:20 Range/Units White Blood Count 7.0 4.3-11.0 10^3/uL Red Blood Count 3.03 L 3.80-5.11 10^6/uL Hemoglobin 9.1 L 11.5-16.0 g/dL Hematocrit 29 L 35-52 % Mean Corpuscular Volume 96 80-99 fL Mean Corpuscular Hemoglobin 30 25-34 pg Mean Corpuscular Hemoglobin Concent 31 L 32-36 g/dL Red Cell Distribution Width 13.4 10.0-14.5 % Platelet Count 176 130-400 10^3/uL Mean Platelet Volume 10.8 9.0-12.2 fL Immature Granulocyte % (Auto) 0 % Neutrophils (%) (Auto) 68 42-75 % Lymphocytes (%) (Auto) 17 12-44 % Monocytes (%) (Auto) 9 0-12 % Eosinophils (%) (Auto) 6 0-10 % Basophils (%) (Auto) 0 0-10 % Neutrophils # (Auto) 4.8 1.8-7.8 10^3/uL Lymphocytes # (Auto) 1.2 1.0-4.0 10^3/uL Monocytes # (Auto) 0.6 0.0-1.0 10^3/uL Eosinophils # (Auto) 0.4 H 0.0-0.3 10^3/uL Basophils # (Auto) 0.0 0.0-0.1 10^3/uL Immature Granulocyte # (Auto) 0.0 0.0-0.1 10^3/uL Prothrombin Time 11.9 L 12.2-14.7 SEC INR Comment 0.8 0.8-1.4 Activated Partial Thromboplast Time 28 24-35 SEC Sodium Level 144 135-145 MMOL/L Potassium Level 4.3 3.6-5.0 MMOL/L Chloride Level 106 98-107 MMOL/L Carbon Dioxide Level 24 21-32 MMOL/L Anion Gap 14 5-14 MMOL/L Blood Urea Nitrogen 42 H 7-18 MG/DL Creatinine 1.76 H 0.60-1.30 MG/DL Estimat Glomerular Filtration Rate 30 BUN/Creatinine Ratio 24 Glucose Level 161 H 70-105 MG/DL Calcium Level 8.7 8.5-10.1 MG/DL Corrected Calcium 8.9 8.5-10.1 MG/DL Magnesium Level 1.6 1.6-2.4 MG/DL Total Bilirubin 0.9 0.1-1.0 MG/DL Aspartate Amino Transf (AST/SGOT) 13 5-34 U/L Alanine Aminotransferase (ALT/SGPT) 13 0-55 U/L Alkaline Phosphatase 62 40-136 U/L Myoglobin 79.7 10.0-92.0 NG/ML Troponin I < 0.028 <0.028 NG/ML B-Type Natriuretic Peptide 52.3 <100.0 PG/ML Total Protein 6.7 6.4-8.2 GM/DL Albumin 3.8 3.2-4.5 GM/DL My Orders Orders - LYNN VILLAFANA SOFTWARE APPLICATIONS SPECIALIST Cbc With Automated Diff (12/10/21 20:21) Magnesium (12/10/21 20:21) Chest 1 View, Ap/Pa Only (12/10/21 20:21) Ekg Tracing (12/10/21 20:) Comprehensive Metabolic Panel (12/10/21:) Myoglobin Serum (12/10/21 20:) Protime With Inr (12/10/21 20:) Partial Thromboplastin Time (12/10/21 20:21) O2 (12/10/21 20:) Monitor-Rhythm Ecg Trace Only (12/10/21 20:21) Lipid Panel (12/11/21 06:00) Ed Iv/Invasive Line Start (12/10/21 20:21) Bnp Otero (12/10/21 20:21) Troponin I Joselito (12/10/21 20:21) Aspirin Chewable Tablet (Baby Aspirin Ch (12/10/21 20:30) Fentanyl Inj (Sublimaze Injection) (12/10/21 20:45) Rx-Hydrocodone/Apap 5-325 Mg (Rx-Vicodin (12/10/21 21:15) Medications Given in ED Current Medications Medications Dose Ordered Sig/[place] Route Start Time Stop Time Status Last Admin Dose Admin Aspirin 324 mg ONCE ONCE PO 12/10/21 20:30 12/10/21 20:31 DC 12/10/21 20:44 324 MG Fentanyl Citrate 25 mcg ONCE PRN IVP 12/10/21 20:45 12/10/21 20:45 25 MCG Vital Signs/I&O 12/10/21 12/10/21 20:15 20:15 Temp 36.3 Pulse 80 Resp 20 B/P (MAP) 180/81 (114) Pulse Ox 96 94 O2 Delivery Room Air Room Air Departure Communication (Admissions) NAME: JAYE MORALES [facility] REC#: [id number] PT STATUS: REG ER : 1945 PHYSICIAN: LYNN VILLAFANA APRN ADMIT DATE: 12/10/21/ER Draft Date of Exam:12/10/21 CHEST 1 VIEW, AP/PA ONLY CLINICAL INDICATION: Patient with chest pain. EXAM: Portable chest x-ray upright view. COMPARISON: None. FINDINGS: There is cardiomegaly and mild pulmonary vascular congestion. Costophrenic angle regions are blunted and small pleural effusions cannot be completely excluded. There is mild groundglass opacities involving both lung bases which may represent atelectasis versus infiltrate or due to patient body habitus. There is no pneumothorax. There are surgical clips overlying the right axillary region. Bones show no significant abnormality. IMPRESSION: 1: There is cardiomegaly with mild pulmonary vascular congestion which may be seen with mild congestive heart failure. 2: Possible small bilateral pleural effusions. 3: There is mild groundglass opacification involving both lung bases which may represent atelectasis versus infiltrate. Superimposed extrathoracic soft tissue prominence may also cause this appearance. Dictated on workstation # [id number] Dict: 12/10/21 2100 Trans: 12/10/212103 [facility] [id number] Interpreted by: HÉCTOR TRIMBLE MD Electronically signed by: Impression Primary Impression: Chest wall pain Disposition: 01 HOME, SELF-CARE Condition: Stable Departure-Patient Inst. Decision time for Depature: 20:56 Referrals: VANGIE BLEDSOE DO (PCP/Family) Primary Care Physician Patient Instructions: Chest Pain, Adult ED Add. Discharge Instructions: 1. Return to ER for any concerns 2. Follow up with your doctor next week All discharge instructions reviewed with patient and/or family. Voiced understanding. LYNN VILLAFANA APRN December 10, 2021 20:35
[2021-12-10 20:37] LABS: ALBUMIN 3.8 GM/DL (3.2-4.5); POTASSIUM 4.3 MMOL/L (3.6-5.0)
[2021-12-10 20:38] LABS: CALCIUM 8.7 MG/DL (8.5-10.1)
[2021-12-10 20:39] LABS: TOTAL PROTEIN 6.7 GM/DL (6.4-8.2)
[2021-12-10 20:41] LABS: BILIRUBIN,TOTAL 0.9 MG/DL (0.1-1.0)
[2021-12-10 20:43] LABS: CREATININE SERUM 1.76 MG/DL (0.60-1.30)
[2021-12-10 20:44] LABS: INR 0.8 (0.8-1.4); PROTHROMBIN TIME PATIENT 11.9 SEC (12.2-14.7)
[2021-12-10] MEDS ORDERED: fentaNYL INJ 100 MCG/2 ML AMP IVP PRN (20:45)
[2021-12-10 20:46] LABS: MAGNESIUM 1.6 MG/DL (1.6-2.4)
--- NOTE | 2021-12-10 21:04 | Diagnostic Imaging Report ---
CLINICAL INDICATION: Patient with chest pain. EXAM: Portable chest x-ray upright view. COMPARISON: None. FINDINGS: There is cardiomegaly and mild pulmonary vascular congestion. Costophrenic angle regions are blunted and small pleural effusions cannot be completely excluded. There is mild groundglass opacities involving both lung bases which may represent atelectasis versus infiltrate or due to patient body habitus. There is no pneumothorax. There are surgical clips overlying the right axillary region. Bones show no significant abnormality. IMPRESSION: 1: There is cardiomegaly with mild pulmonary vascular congestion which may be seen with mild congestive heart failure. 2: Possible small bilateral pleural effusions. 3: There is mild groundglass opacification involving both lung bases which may represent atelectasis versus infiltrate. Superimposed extrathoracic soft tissue prominence may also cause this appearance. Dictated by: Dictated on workstation # [id number]
[2021-12-10 21:17] VITALS: BP 153/68
== END 2021-12-10 21:18 | disposition home or self-care (01) ==
LOC: EDUNIT# 19:42 → ER 19:46
DX: R07.89 Other chest pain (principal)
CPT/HCPCS: 36415; 71045; 80053; 83735; 83874; 83880; 84484; 85025; 85610; 85730; 93005; 93041

== ENCOUNTER 2022-08-11 19:41 | Emergency (ER) | payer MEDICARE, MEDICAID ==
[2022-08-11] MEDS ORDERED: NITROGLYCERIN 0.4 MG SL TABS BTL 25'S SL PRN (20:00)
[2022-08-11] MEDS ORDERED: ASPIRIN 81 MG CHEW (CHILDREN'S ASA) PO ONE (20:00)
[2022-08-11 20:04] LABS: BASOPHILS % (AUTO) 1 % (0-10); EOSINOPHILS # (AUTO) 0.4 10^3/uL (0.0-0.3); EOSINOPHILS % (AUTO) 7 % (0-10); HEMATOCRIT 28 % (35-52); HEMOGLOBIN 8.8 g/dL (11.5-16.0); LYMPHOCYTES # (AUTO) 0.9 10^3/uL (1.0-4.0); LYMPHOCYTES % (AUTO) 16 % (12-44); MEAN CORPUSCULAR HEMOGLOBIN 30 pg (25-34); MEAN CORPUSCULAR HGB CONC 31 g/dL (32-36); MEAN CORPUSCULAR VOLUME 94 fL (80-99); MEAN PLATELET VOLUME 10.5 fL (9.0-12.2); MONOCYTES # (AUTO) 0.4 10^3/uL (0.0-1.0); MONOCYTES % (AUTO) 8 % (0-12); NEUTROPHILS % (AUTO) 69 % (42-75); PLATELET COUNT 147 10^3/uL (130-400); WHITE BLOOD COUNT 5.8 10^3/uL (4.3-11.0)
--- NOTE | 2022-08-11 20:07 | ED Chest Pain ---
General Chief Complaint: Chest Pain Stated Complaint: MID BACK PAIN,PRESSURE/PAIN IN CHEST Source: patient, family (DAUGHTER) History of Present Illness Date Seen by Provider: Aug 11, 2022 Time Seen by Provider: 19:50 Initial Comments PT ARRIVES VIA POV FROM HOME WITH DAUGHTER C/O MID CHEST PAIN ( CENTER OF CHEST ) THAT RADIATES THROUGH TO HER BACK THIS PAIN STARTED A COUPLE OF HOURS AGO, AFTER EATING PAIN WAS 10/10, NOW 5/10 + NAUSEA AND VOMITED X 1 + SHORTNESS OF BREATH NO SWEATS NO PALPITATIONS OR DIZZINESS OR SYNCOPE DENIES ABDOMINAL PAIN NO CHANGE IN CHRONIC LEG SWELLING PT STATES THIS HAS BEEN GOING ON FOR 2-3 MONTHS, AND IS MOSTLY WHEN SHE EATS OR DRINKS ANYTHING STATES IT FEELS LIKE SOMETHING IS LODGED IN HER CHEST. SHE HAS NOT SOUGHT CARE FOR THIS AT ANY TIME SHE HAS NOT TAKEN ANYTHING FOR SYMPTOMS SHE HAD ROUTINE FOLLOW UP WITH HER WEATHERIZATION DIRECTOR, DR. HOWARD, A COUPLE OF WEEKS AGO SHE DID NOT MENTION THIS SHE STATES SHE HAS AN ENLARGED HEART, BUT DENIES ANY HISTORY OF CORONARY ARTERY DISEASE SHE STATES SHE HAS HAD A STRESS TEST OVER A YEAR AGO, AND CARDIAC CATHS IN THE PAST, BUT NO INTERVENTION. LAST ONE WAS OVER A YEAR AGO. PCP: DR. BLEDSOE IN [place] WEATHERIZATION DIRECTOR: DR. 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[place]: IN [place] Allergies and Home Medications Allergies Coded Allergies: cephalexin (Verified Allergy, Intermediate, RASH, 01/19/16) Patient Home Medication List Alprazolam (Xanax) 0.5 Mg Tablet, 0.5 MG PO BID PRN for AGITATION, (Reported) Entered as Reported by: MIKA HEMPHILL on 12/20/131716 Amlodipine Besylate (Amlodipine Besylate) 10 Mg Tablet, 10 MG PO DAILY, (Reported) Entered as Reported by: KASANDRA RODRIGUEZ on 02/09/15 1146 Atorvastatin Calcium (Lipitor 10 Mg) 10 Mg Tablet, 10 MG PO HS, (Reported) Entered as Reported by: MIKA HEMPHILL on 12/20/131716 Cholecalciferol (Vitamin D3) 5,000 Unit Capsule, 5,000 UNIT PO DAILY, (Reported) Entered as Reported by: MIKA HEMPHILL on 12/20/131716 Ciprofloxacin HCl (Ciloxan) 5 Ml Drops, 2 DROPS OP TID Prescribed by: JESSICA SOSA on 02/10/18 1409 Cyclobenzaprine HCl (Cyclobenzaprine HCl) 5 Mg Tablet, 5 MG PO TID PRN for PAIN- MODERATE TO SEVERE Prescribed by: LYNN VILLAFANA on 05/16/171945 Furosemide (Furosemide) 40 Mg Tablet, (Reported) Entered as Reported by: MIKA HEMPHILL on 05/16/171943 Hydrocodone Bit/Acetaminophen (Lortab 5 Mg Tablet) 1 Each Tablet, 1 EACH PO Q6H PRN for PAIN Prescribed by: OMI BORRERO on 11/06/16 0238 Hydrocodone Bit/Acetaminophen (Lortab 5 Mg Tablet) 1 Each Tablet, 1 EACH PO Q6H Prescribed by: OMI BORRERO on 02/21/18 0039 Hydrocodone Bit/Acetaminophen (Lortab 5 Mg Tablet) 1 Tab Tab, 1 EACH PO Q4-6HR PRN for PAIN-MODERATE Prescribed by: KOTA WHATLEY on 05/22/18 1735 Hydrocodone/Acetaminophen (Hydrocodone/Acetaminophen 5 MG/325 MG TAB) 1 Each Tablet, 1 TAB PO Q6H PRN for PAIN-BREAKTHROUGH Prescribed by: JESSICA SOSA on 10/26/19 0559 Insulin Glargine,Hum.rec.anlog (Lantus) 100 Unit/1 Ml Cartridge, 20 UNIT SQ HS, (Reported) Entered as Reported by: MIKA HEMPHILL on 12/20/131716 Isosorbide Mononitrate (Isosorbide Mononitrate ER) 60 Mg Tab, (Reported) Entered as Reported by: MIKA HEMPHILL on 05/16/171943 Metformin HCl (Metformin HCl) 1,000 Mg Tablet, (Reported) Entered as Reported by: MIKA HEMPHILL on 05/16/171943 Naproxen (Naproxen) 500 Mg Tablet, (Reported) Entered as Reported by: MIKA HEMPHILL on 05/16/171943 Oxybutynin Chloride (Oxybutynin Chloride Xl) 15 Mg Tab.osm.24, 15 MG PO DAILY, (Reported) Entered as Reported by: MIKA HEMPHILL on 12/20/131716 Paroxetine HCl (Paroxetine HCl) 30 Mg Tablet, (Reported) Entered as Reported by: MIKA HEMPHILL on 05/16/171943 Valsartan (Valsartan) 320 Mg Tablet, (Reported) Entered as Reported by: MIKA HEMPHILL on 05/16/171943 Review of Systems Review of Systems Constitutional: no symptoms reported; No diaphoresis EENTM: No Symptoms Reported Respiratory: See HPI, Shortness of Air Cardiovascular: See HPI, Chest Pain, Edema; Denies Irregular Heart Rate, Denies Lightheadedness, Denies Palpitations, Denies Syncope Gastrointestinal: See HPI; Denies Abdominal Pain (DENIES ); Nausea, Vomiting Genitourinary: No Symptoms Reported Musculoskeletal: see HPI, back pain Skin: no symptoms reported Psychiatric/Neurological: No Symptoms Reported Endocrine: No Symptoms Reported Hematologic/Lymphatic: No Symptoms Reported Past Ymujypb-Emvpeq-Vikuaf Hx Patient Social History Tobacco Use?: No Smoking Status: Never a Smoker Smokeless Tobacco Frequency: Never a User Use of E-Cig and/or Vaping dev: No Use of E-Cig and/or Vaping Gabriel: Never a User Substance use?: No Alcohol Use?: No Pt feels they are or have been: No Immunizations Up To Date Tetanus Booster (TDap): Unknown Influenza Vaccine Up-to-Date: No; Not Current First/Initial COVID19 Vaccinat: [email or web address] Second COVID19 Vaccination Leadio: [email or web address] 05/27 COVID19 Vaccine Endocrinology Nurse: [email or web address] Seasonal Allergies Seasonal Allergies: No Past Medical History Surgeries: Yes (knee replacement x3, right mastectomy, back, hand, elbow surgery) Appendectomy, Bladder Surgery, Breast, Cardiac, Eye Surgery, Hysterectomy, Joint Replacement, Oophorectomy, Orthopedic, Thyroidectomy Respiratory: No Cardiac: Yes Cardiomyopathy, Chronic Edema/Swelling, High Cholesterol, Hypertension Neurological: No 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, 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 Genitourinary: Yes (NO DIALYSIS) Renal Failure, Neurogenic Bladder, UTI-Chronic Gastrointestinal: No Musculoskeletal: Yes Degenerate Disk Disease, Arthritis, Chronic Back Pain Endocrine: Yes (OBESITY; GOITER-S/P THYROID SURGERY) Diabetes, Insulin dep, Hypothyroidsim HEENT: Yes Cataract Cancer: Yes Breast Did You Recieve Any Treatments: Yes What Type of Treatment Did You: Surgical Intervention S/P RIGHT MASTECTOMY, PLUS ORAL MEDICATIONS Psychosocial: Yes Anxiety, Depression Integumentary: No Blood Disorders: Yes (ANEMIA) Family Medical History Arthritis G8 BROTHER BRAIN ANEURYSM 19 MOTHER Hypertension G8 BROTHER G8 BROTHER G8 BROTHER Myocardial infarction 19 FATHER No Pertinent Family Hx PSH: -RIGHT ROTATOR CUFF SURGERY -BILATERAL CARPAL TUNNEL REPAIR -BACK SURGERY/LUMBAR SPINE -RIGHT TIB/FIB/ANKLE FRACTURE REPAIR -BILATERAL TOTAL KNEE REPLACEMENTS, AND ONE KNEE DONE TWICE. -APPENDECTOMY -RIGHT MASTECTOMY WITH LYMPHNODE REMOVAL RECONSTRUCTIVE SURGERY--CHRONIC BREAST IMPLANT RUPTURE--NEVER REMOVED/REPLACED -LEFT BREAST SURGERY/RECONSTRUCTION -BLADDER SUSPENSIONS -THYROIDECTOMY FOR GOITER -HYSTERECTOMY/BILATERAL SALPINGO-OOPHORECTOMY -BILATERAL CATARACT SURGEYR Physical Exam Vital Signs Vital Signs - First Documented 08/11/22 19:48 Temp 36.8 Pulse 76 Resp 22 B/P (MAP) 171/77 (108) Pulse Ox 96 O2 Delivery Room Air Capillary Refill : Height, Weight, BMI Height: 5'2.00" Weight: 220lbs. 0oz. 99.139998av; 193.00 BMI Method:Stated General Appearance: WD/WN, Obese, Other (MILDLY DYSPNEIC ON ARRIVAL, THIS RESOLVES SHORTLY AFTER REST.) Neck: Normal Inspection Respiratory: Chest Non Tender, Normal Breath Sounds, No Accessory Muscle Use, No Respiratory Distress Cardiovascular: Regular Rate, Rhythm, No Murmur Gastrointestinal: Non Tender, Soft, Other (OBESE, UNABLE TO DETERMINE IF ORGANOMEGALY OR PULSATILE MASS IS PRESENT) Extremity: Normal Capillary Refill, Normal Range of Motion, Pedal Edema (3+ EDEMA BILATERALLY) Neurologic/Psychiatric: Alert, Oriented x3, No Motor/Sensory Deficits, Normal Mood/Affect, 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 Norm as Tested Skin: Normal Color, Warm/Dry; No Rash Progress/Results/Core Measures Results/Orders Lab Results Laboratory Tests Test 08/11/22 19:55 Range/Units White Blood Count 5.8 4.3-11.0 10^3/uL Red Blood Count 2.97 L 3.80-5.11 10^6/uL Hemoglobin 8.8 L 11.5-16.0 g/dL Hematocrit 28 L 35-52 % Mean Corpuscular Volume 94 80-99 fL Mean Corpuscular Hemoglobin 30 25-34 pg Mean Corpuscular Hemoglobin Concent 31 L 32-36 g/dL Red Cell Distribution Width 14.4 10.0-14.5 % Platelet Count 147 130-400 10^3/uL Mean Platelet Volume 10.5 9.0-12.2 fL Immature Granulocyte % (Auto) 0 % Neutrophils (%) (Auto) 69 42-75 % Lymphocytes (%) (Auto) 16 12-44 % Monocytes (%) (Auto) 8 0-12 % Eosinophils (%) (Auto) 7 0-10 % Basophils (%) (Auto) 1 0-10 % Neutrophils # (Auto) 4.0 1.8-7.8 10^3/uL Lymphocytes # (Auto) 0.9 L 1.0-4.0 10^3/uL Monocytes # (Auto) 0.4 0.0-1.0 10^3/uL Eosinophils # (Auto) 0.4 H 0.0-0.3 10^3/uL Basophils # (Auto) 0.0 0.0-0.1 10^3/uL Immature Granulocyte # (Auto) 0.0 0.0-0.1 10^3/uL Prothrombin Time 12.1 L 12.2-14.7 SEC INR Comment 0.9 0.8-1.4 Activated Partial Thromboplast Time 27 24-35 SEC D-Dimer 0.98 H 0.00-0.49 UG/ML Sodium Level 139 135-145 MMOL/L Potassium Level 4.7 3.6-5.0 MMOL/L Chloride Level 107 98-107 MMOL/L Carbon Dioxide Level 22 21-32 MMOL/L Anion Gap 10 5-14 MMOL/L Blood Urea Nitrogen 39 H 7-18 MG/DL Creatinine 1.88 H 0.60-1.30 MG/DL Estimat Glomerular Filtration Rate 27 BUN/Creatinine Ratio 21 Glucose Level 158 H 70-105 MG/DL Calcium Level 8.7 8.5-10.1 MG/DL Corrected Calcium 8.8 8.5-10.1 MG/DL Magnesium Level 1.9 1.6-2.4 MG/DL Total Bilirubin 0.7 0.1-1.0 MG/DL Aspartate Amino Transf (AST/SGOT) 15 5-34 U/L Alanine Aminotransferase (ALT/SGPT) 10 0-55 U/L Alkaline Phosphatase 65 40-136 U/L Total Creatine Kinase 106 29-168 U/L Creatine Kinase MB 1.3 <6.6 NG/ML Myoglobin 77.6 10.0-92.0 NG/ML Troponin I < 0.028 <0.028 NG/ML B-Type Natriuretic Peptide 67.1 <100.0 PG/ML Total Protein 6.8 6.4-8.2 GM/DL Albumin 3.9 3.2-4.5 GM/DL Amylase Level 43 25-125 U/L Lipase 41 8-78 U/L My Orders Orders - QUINTON CLARKE DO Cbc With Automated Diff (08/11/22 19:49) Magnesium (08/11/22 19:49) Chest 1 View, Ap/Pa Only (08/11/22 19:49) Ekg Tracing (08/11/22 19:49) Comprehensive Metabolic Panel (08/11/22 19:49) Myoglobin Serum (08/11/22 19:49) Protime With Inr (08/11/22 19:49) Partial Thromboplastin Time (08/11/22 19:49) O2 (08/11/22 19:49) Monitor-Rhythm Ecg Trace Only (08/11/22 19:49) Ed Iv/Invasive Line Start (08/11/22 19:49) Creatine Kinase (08/11/22 19:49) Creatine Kinase Mb (08/11/22 19:49) Lipase (08/11/22 19:49) Amylase (08/11/22 19:49) Bnp [place] (08/11/22 19:49) Fibrin Degradation Products (08/11/22 19:49) Troponin I [place] (08/11/22 19:49) Nitroglycerin 0.4 Mg Btl 25's (Nitrostat (08/11/22 20:00) Aspirin Chewable Tablet (Baby Aspirin Ch (08/11/22 20:00) Ct Chest/Abdomen/Pelvis Wo (08/11/22 20:27) Medications Given in ED Current Medications Medications Dose Ordered Sig/[place] Route Start Time Stop Time Status Last Admin Dose Admin Aspirin 324 mg ONCE ONCE PO 08/11/22 20:00 08/11/22 20:01 DC 08/11/22 20:00 324 MG Nitroglycerin 0.4 mg UD PRN SL 08/11/22 20:00 08/11/22 20:00 0.4 MG Vital Signs/I&O 08/11/22 19:48 Temp 36.8 Pulse 76 Resp 22 B/P (MAP) 171/77 (108) Pulse Ox 96 O2 Delivery Room Air Progress Progress Note : Progress Note CHEST PAIN PROTOCOL INITIATED GIVEN ASPIRIN AND NTG X 1--REFUSED ANY MORE NTG, STATES SHE "DOESN'T THINK IT IS CARDIAC RELATED" . PAIN DOWN TO A 3/[address] SCAN DONE WITHOUT CONTRAST DUE TO CHRONIC RENAL IMPAIRMENT, WITH GFR < 30--LIMITS DX OF PE OR DISSECTION. REVIEWED OLD RECORDS, PT WITH MULTIPLE ER VISITS--NEARLY ALL FOR VARIOUS PAIN COMPLAINTS OR INJURIES. ONLY ADMIT HERE WAS IN 2015--FOR UTI WITH KESHIA, THAT CHART WAS ALSO REVIEWED INCLUDING ER NOTE, H&P, TEST RESULTS, AND DISCHARGE SUMMARY REVIEWED ALL TEST RESULTS WITH PT AND DAUGHTER, AND STRONGLY RECOMMENDED ADMIT FOR FURTHER EVALUATION OF HER SYMPTOMS. PT DECLINES ADMIT AND STATES SHE WILL JUST FOLLOW UP WITH HER REGULAR DOCTORS. AMA PAPERS SIGNED. PT STATES SHE IS PAIN FREE AT TIME OF DISMISSAL Initial ECG Impression Date: Aug 11, 2022 Initial ECG Impression Time: 19:59 Initial ECG Rate: 66 Initial ECG Rhythm: Normal Sinus Initial ECG Impression: Nonspecific Changes Initial ECG Comparisson: Unchanged (NO CHANGE FROM 12/10/21) Comment INTERPRETED BY ME Diagnostic Imaging Comments CXR--PER RADIOLOGIST REPORT AT 2019 FINDINGS: The cardiac silhouette is enlarged, similar to the prior examination. Mild central pulmonary vascular congestion. The lungs, however are clear of focal pulmonary opacity. No significant pleural effusion. No pneumothorax. Surgical clips are seen overlying the right axillary region. Significant scattered osseous degenerative changes are present, particularly involving the right shoulder/acromioclavicular joint. No acute osseous abnormality. IMPRESSION: Cardiomegaly with minimal central pulmonary vascular congestion without significant interstitial edema or pleural effusion. CT CHEST/ABDOMEN/PELVIS--PER RADIOLOGIST REPORT AT 2118 FINDINGS: Ruptured right breast implant is noted. Moderate sized hiatal hernia. Advanced vascular calcifications within the thoracic aorta and its branch vessels with ectasia of the ascending thoracic aorta measuring up to 3.9 cm. The heart is enlarged. No significant pericardial effusion. No pleural effusion. The trachea is patent. No pneumothorax. The lungs are clear. Chronic appearing lateral left-sided rib fractures. Scattered osseous degenerative changes without acute osseous abnormality within the chest. The unenhanced liver and spleen are unremarkable. Hypodense enlargement of the bilateral adrenal glands is noted with a Hounsfield units of below 10. The pancreas is unremarkable. Tiny nonobstructing 3 mm calculus within the superior pole of the right kidney. No hydroureteronephrosis. Moderate background vascular calcifications without aneurysmal dilatation of the abdominal aorta. The urinary bladder is unremarkable. The uterus is not visualized, likely surgically absent. No abnormal adnexal mass lesion. Minimal colonic diverticulosis without CT evidence of diverticulitis. No bowel obstruction or pneumatosis. No significant adenopathy, free air, or free free fluid within the abdomen or pelvis. Fat stranding is noted bilaterally within the anterior abdominal wall subcutaneous tissues. Postsurgical changes within the lumbar spine. Scattered osseous degenerative changes. No acute osseous abnormality. IMPRESSION: Moderate sized hiatal hernia. Tiny nonobstructing right renal calculus. Bilateral adrenal adenomas. Ectasia of the ascending thoracic aorta. Fat stranding within the subcutaneous tissues of anterior abdominal wall bilaterally. This could relate to recent injections. Cellulitis felt less likely. Ruptured right breast implant. Additional findings as above. Reviewed: Reviewed by Me Departure Impression Primary Impression: Chest pain Additional Impressions: Hiatal hernia Left against medical advice Disposition: 07 AGAINST MEDICAL ADVICE Condition: Against Medical Advice Departure-Patient Inst. Decision time for Depature: 21:30 Referrals: VANGIE BLEDSOE DO (PCP/Family) Primary Care Physician Patient Instructions: Leaving Against Medical Advice Add. Discharge Instructions: FOLLOW UP WITH YOUR PRIMARY CARE DR AND/OR YOUR WEATHERIZATION DIRECTOR TOMORROW FOR FURTHER CARE RETURN TO ER IF YOUR SYMPTOMS RETURN All discharge instructions reviewed with patient and/or family. Voiced understanding. QUINTON CLARKE DO Aug 11, 2022 20:07
--- NOTE | 2022-08-11 20:16 | Diagnostic Imaging Report ---
INDICATION: Chest pain. COMPARISON: 12/10/2021. TECHNIQUE: Single radiograph of the chest dated 08/11/2022. FINDINGS: The cardiac silhouette is enlarged, similar to the prior examination. Mild central pulmonary vascular congestion. The lungs, however are clear of focal pulmonary opacity. No significant pleural effusion. No pneumothorax. Surgical clips are seen overlying the right axillary region. Significant scattered osseous degenerative changes are present, particularly involving the right shoulder/acromioclavicular joint. No acute osseous abnormality. IMPRESSION: Cardiomegaly with minimal central pulmonary vascular congestion without significant interstitial edema or pleural effusion. Additional postsurgical and chronic findings as above. Dictated by: Dictated on workstation # [id number]
[2022-08-11 20:19] LABS: INR 0.9 (0.8-1.4); PROTHROMBIN TIME PATIENT 12.1 SEC (12.2-14.7)
[2022-08-11 20:27] LABS: ALBUMIN 3.9 GM/DL (3.2-4.5); BILIRUBIN,TOTAL 0.7 MG/DL (0.1-1.0); CALCIUM 8.7 MG/DL (8.5-10.1); CREATININE SERUM 1.88 MG/DL (0.60-1.30); MAGNESIUM 1.9 MG/DL (1.6-2.4); POTASSIUM 4.7 MMOL/L (3.6-5.0); TOTAL PROTEIN 6.8 GM/DL (6.4-8.2)
[2022-08-11 20:35] LABS: CREATINE KINASE MB 1.3 NG/ML (<6.6)
--- NOTE | 2022-08-11 21:04 | Diagnostic Imaging Report ---
PROCEDURE: CT chest, abdomen, and pelvis without contrast. TECHNIQUE: Multiple contiguous axial images were obtained through the chest, abdomen, and pelvis without the use of intravenous contrast. Auto Exposure Controls were utilized during the CT exam to meet ALARA standards for radiation dose reduction. INDICATION: Chest pain, abdominal pain COMPARISON: Radiograph dated 03/25/2020. FINDINGS: Ruptured right breast implant is noted. Moderate sized hiatal hernia. Advanced vascular calcifications within the thoracic aorta and its branch vessels with ectasia of the ascending thoracic aorta measuring up to 3.9 cm. The heart is enlarged. No significant pericardial effusion. No pleural effusion. The trachea is patent. No pneumothorax. The lungs are clear. Chronic appearing lateral left-sided rib fractures. Scattered osseous degenerative changes without acute osseous abnormality within the chest. The unenhanced liver and spleen are unremarkable. Hypodense enlargement of the bilateral adrenal glands is noted with a Hounsfield units of below 10. The pancreas is unremarkable. Tiny nonobstructing 3 mm calculus within the superior pole of the right kidney. No hydroureteronephrosis. Moderate background vascular calcifications without aneurysmal dilatation of the abdominal aorta. The urinary bladder is unremarkable. The uterus is not visualized, likely surgically absent. No abnormal adnexal mass lesion. Minimal colonic diverticulosis without CT evidence of diverticulitis. No bowel obstruction or pneumatosis. No significant adenopathy, free air, or free free fluid within the abdomen or pelvis. Fat stranding is noted bilaterally within the anterior abdominal wall subcutaneous tissues. Postsurgical changes within the lumbar spine. Scattered osseous degenerative changes. No acute osseous abnormality. IMPRESSION: Moderate sized hiatal hernia. Tiny nonobstructing right renal calculus. Bilateral adrenal adenomas. Ectasia of the ascending thoracic aorta. Fat stranding within the subcutaneous tissues of anterior abdominal wall bilaterally. This could relate to recent injections. Cellulitis felt less likely. Ruptured right breast implant. Additional findings as above. Dictated by: Dictated on workstation # [id number]
[2022-08-11 21:47] VITALS: BP 152/59
== END 2022-08-11 21:47 | disposition left against medical advice (07) ==
LOC: EDUNIT# 19:41 → ER 19:43
DX: K44.9 Diaphragmatic hernia without obstruction or gangrene (principal); E66.9 Obesity, unspecified; Z68.45 Body mass index [BMI] 70 or greater, adult
CPT/HCPCS: 36415; 71045; 71250; 74176; 80053; 82150; 82550; 82553; 83690; 83735; 83874; 83880; 84484; 85025; 85379; 85610; 85730; 93005; 93041

== ENCOUNTER 2022-12-01 22:36 | Emergency (ER) | payer MEDICARE, MEDICAID ==
[~2022-12-01] VITALS: Ht 157.5 cm; Wt 98.0 kg
[2022-12-01] MEDS ORDERED: CALC0.5C11 (22:54)
[2022-12-01] MEDS ORDERED: GLIP10TA24 (22:54)
[2022-12-01] MEDS ORDERED: INSU100I32 (22:54)
[2022-12-01] MEDS ORDERED: LEVO88TA54 (22:54)
[2022-12-01] MEDS ORDERED: OMEP40CA6 (22:54)
[2022-12-01] MEDS ORDERED: DOXA8TAB73 (22:54)
[2022-12-01] MEDS ORDERED: ASPI-999 PO (22:54)
[2022-12-01] MEDS ORDERED: LIRA0.6P3 (22:54)
--- NOTE | 2022-12-01 23:08 | ED Fall/Injury ---
General Chief Complaint: Trauma-Non Activation Stated Complaint: FELL HURT UPER BACK PAIN Nursing Triage Note: ambulatory to rm 4 c/o fall backwards from standing position approx. 2029 onto gravel. reports striking head. denies loc/other injuries. c/o mid/lower back pain. Source: patient (SOMEWHAT LIMITED HISTORIAN), family (DAUGHTER) History of Present Illness Date Seen by Provider: Dec 01, 2022 Time Seen by Provider: 22:41 Initial Comments PT ARRIVES VIA POV FROM HOME WITH DAUGHTER, WALKS IN ON HER OWN WEARING PAJAMAS PT STATES AROUND 2030 TONIGHT, SHE WAS GOING OUTSIDE AND LOST HER BALANCE AND FELL BACKWARDS, LANDING FLAT ON HER BACK AND HITTING THE BACK OF HER HEAD SHE LANDED ON GRAVEL/ROCKS SHE DENIES LOSS OF CONSCIOUSNESS SHE C/O PAIN TO HER MID AND UPPER BACK SHE ALSO C/O LOWER BACK PAIN SHE DOES HAVE CHRONIC BACK PAIN AND HAS HAD PRIOR LUMBAR SPINE SURGERY WITH HARDWARE IN PLACE. SHE DENIES NECK PAIN DENIES HEADACHE DENIES DIZZINESS OR SYNCOPE NO PARESTHESIAS OR MOTOR DEFICITS NO NAUSEA/VOMITING NO VISION CHANGES NO ARM OR LEG PAIN NO CHEST OR ABDOMINAL PAIN NO CHANGE IN MENTATION PT IS ON 81 MG ASPIRIN, BUT NO OTHER BLOOD THINNERS. MUCH LATER DURING ER STAY, PT REPORTS THAT SHE ALSO FELL IN HER KITCHEN 3 DAYS AGO--AGAIN LOST HER BALANCE AND FELL BACKWARDS ONTO THE FLOOR. SHE DID HIT HER HEAD THEN ALSO. SHE STATES SHE "FELT FINE" AFTER THAT EPISODE. SHE DOES NOT HAVE A WALKER OR CANE SHE TAKES HYDROCODONE ON A REGULAR BASIS DUE TO CHRONIC BACK PAIN AND GENERALIZED ARTHRITIC PAIN, BUT SHE RAN OUT A COUPLE OF DAYS AGO, AND HAS TO HAVE AN APPOINTMENT WITH HER DR TO GET REFILLS, SHE DOES NOT CURRENTLY HAVE AN APPOINTMENT SHE HAS NOT TAKEN ANYTHING FOR PAIN TONIGHT. IN ADDITION TO BACK SURGERY, SHE HAS HAD BILATERAL KNEE SURGERIES--TWICE ON ONE SIDE. SHE HAS ALSO HAD BILATERAL CARPAL TUNNEL SURGERY, RIGHT ROTATOR CUFF SURGERY SHE HAS HISTORY OF BREAST CANCER WITH RIGHT MASTECTOMY. SHE HAS HAD COVID VACCINE X 2 PCP: [place]. Allergies and Home Medications Allergies Coded Allergies: cephalexin (Verified Allergy, Intermediate, RASH, 01/19/16) Patient Home Medication List Home Medication List Reviewed: Yes Alprazolam (Xanax) 0.5 Mg Tablet, 0.5 MG PO BID PRN for AGITATION, (Reported) Entered as Reported by: MIKA HEMPHILL on 12/20/131716 Last Action: Last Taken Edited Amlodipine Besylate (Amlodipine Besylate) 10 Mg Tablet, 10 MG PO DAILY, (Reported) Entered as Reported by: KASANDRA RODRIGUEZ on 02/09/15 1146 Last Action: Last Taken Edited Aspirin (Aspirin) 81 Mg Tab.chew, 81 MG PO, (Reported) Entered as Reported by: MIKA HEMPHILL on 12/01/222253 Last Action: New Order Atorvastatin Calcium (Lipitor 10 Mg) 10 Mg Tablet, 10 MG PO HS, (Reported) Entered as Reported by: MIKA HEMPHILL on 12/20/131716 Last Action: Last Taken Edited Calcitriol (Calcitriol) 0.5 Mcg Capsule, (Reported) Entered as Reported by: MIKA HEMPHILL on 12/01/222253 Last Action: New Order Doxazosin Mesylate (Doxazosin Mesylate) 8 Mg Tablet, (Reported) Entered as Reported by: MIKA HEMPHILL on 12/01/222253 Last Action: New Order Furosemide (Furosemide) 40 Mg Tablet, (Reported) Entered as Reported by: MIKA HEMPHILL on 05/16/171943 Last Action: Last Taken Edited Glipizide (Glipizide ER) 10 Mg Tab.er.24, (Reported) Entered as Reported by: MIKA HEMPHILL on 12/01/222253 Last Action: New Order Hydrocodone/Acetaminophen (Hydrocodone/Acetaminophen 5 MG/325 MG TAB) 1 Each Tablet, 1 TAB PO Q6H PRN for PAIN-BREAKTHROUGH Prescribed by: JESSICA SOSA on 10/26/19 0559 Last Action: Last Taken Edited Insulin Degludec (Tresiba Flextouch U-100) 100 Unit/Ml (3 Ml) Insuln.pen, (Reported) Entered as Reported by: MIKA HEMPHILL on 12/01/222253 Last Action: New Order Isosorbide Mononitrate (Isosorbide Mononitrate ER) 60 Mg Tab, (Reported) Entered as Reported by: MIKA HEMPHILL on 05/16/171943 Last Action: Last Taken Edited Levothyroxine Sodium (Levothyroxine Sodium) 88 Mcg Tablet, (Reported) Entered as Reported by: MIKA HEMPHILL on 12/01/222253 Last Action: New Order Liraglutide (Victoza 3-Humberto) 0.6 Mg/0.1 Ml (18 Mg/3 Ml) Pen.injctr, (Reported) Entered as Reported by: MIKA HEMPHILL on 12/01/222253 Last Action: New Order Naproxen (Naproxen) 500 Mg Tablet, (Reported) Entered as Reported by: MIKA HEMPHILL on 05/16/171943 Last Action: Last Taken Edited Omeprazole (Omeprazole) 40 Mg Capsule.dr, (Reported) Entered as Reported by: MIKA HEMPHILL on 12/01/222253 Last Action: New Order Oxybutynin Chloride (Oxybutynin Chloride Xl) 15 Mg Tab.osm.24, 15 MG PO DAILY, ( Reported) Entered as Reported by: MIKA HEMPHILL on 12/20/131716 Last Action: Last Taken Edited Paroxetine HCl (Paroxetine HCl) 30 Mg Tablet, (Reported) Entered as Reported by: MIKA HEMPHILL on 05/16/171943 Last Action: Last Taken Edited Discontinued Medications Cholecalciferol (Vitamin D3) 5,000 Unit Capsule, 5,000 UNIT PO DAILY, (Reported) Discontinued Reason: No Longer Taking Entered as Reported by: MIKA HEMPHILL on 12/20/131716 Last Action: Discontinued Ciprofloxacin HCl (Ciloxan) 5 Ml Drops, 2 DROPS OP TID Discontinued Reason: No Longer Taking Prescribed by: JESSICA SOSA on 02/10/18 1409 Last Action: Discontinued Cyclobenzaprine HCl (Cyclobenzaprine HCl) 5 Mg Tablet, 5 MG PO TID PRN for PAIN- MODERATE TO SEVERE Discontinued Reason: No Longer Taking Prescribed by: LYNN VILLAFANA on 05/16/171945 Last Action: Discontinued Hydrocodone Bit/Acetaminophen (Lortab 5 Mg Tablet) 1 Each Tablet, 1 EACH PO Q6H PRN for PAIN Discontinued Reason: No Longer Taking Prescribed by: OMI BORRERO on 11/06/16 0238 Last Action: Discontinued Hydrocodone Bit/Acetaminophen (Lortab 5 Mg Tablet) 1 Each Tablet, 1 EACH PO Q6H Discontinued Reason: No Longer Taking Prescribed by: OMI BORRERO on 02/21/18 0039 Last Action: Discontinued Hydrocodone Bit/Acetaminophen (Lortab 5 Mg Tablet) 1 Tab Tab, 1 EACH PO Q4-6HR PRN for PAIN-MODERATE Discontinued Reason: No Longer Taking Prescribed by: KOTA WHATLEY on 05/22/18 1735 Last Action: Discontinued Insulin Glargine,Hum.rec.anlog (Lantus) 100 Unit/1 Ml Cartridge, 20 UNIT SQ HS, (Reported) Discontinued Reason: No Longer Taking Entered as Reported by: MIKA HEMPHILL on 12/20/13 1717 Last Action: Discontinued Metformin HCl (Metformin HCl) 1,000 Mg Tablet, (Reported) Discontinued Reason: No Longer Taking Entered as Reported by: MIKA HEMPHILL on 05/16/171943 Last Action: Discontinued Valsartan (Valsartan) 320 Mg Tablet, (Reported) Discontinued Reason: No Longer Taking Entered as Reported by: MIKA HEMPHILL on 05/16/171943 Last Action: Discontinued Review of Systems Review of Systems Constitutional: no symptoms reported Eyes: No Symptoms Reported Ears, Nose, Mouth, Throat: no symptoms reported Respiratory: no symptoms reported Cardiovascular: no symptoms reported Gastrointestinal: no symptoms reported Genitourinary: no symptoms reported Musculoskeletal: see HPI Skin: no symptoms reported Psychiatric/Neurological: No Symptoms Reported Past Jzvgxlk-Sdkwos-Vhflqz Hx Patient Social History Tobacco Use?: No Substance use?: No Alcohol Use?: No Pt feels they are or have been: No Immunizations Up To Date Tetanus Booster (TDap): Unknown First/Initial COVID19 Vaccinat: x2 Second COVID19 Vaccination Eladio: [employer] Tuning 05/27 Seasonal Allergies Seasonal Allergies: No Past Medical History Surgery/Hospitalization HX: htn, djd, [facility] renal disease, hld, hypothryoidism, gerd, niddm, anxiety appy, hysterectomy, bilateral knee, right lumpectomy, bilateral carpel tunnel, back sx. 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 Genitourinary: Yes (NO DIALYSIS) Renal Failure, Neurogenic Bladder, UTI-Chronic Gastrointestinal: No Musculoskeletal: Yes (BACK SURGERY, BILAT KNEE SX, BILAT CARPAL TUNNEL SX, E LBOW SX ) Degenerate Disk Disease, Arthritis, Chronic Back Pain Endocrine: Yes (OBESITY; GOITER-S/P THYROID SURGERY) Diabetes, Insulin dep, Hypothyroidsim HEENT: Yes Cataract Cancer: Yes Breast Did You Recieve Any Treatments: Yes What Type of Treatment Did You: Surgical Intervention Psychosocial: Yes Anxiety, Depression Integumentary: No Blood Disorders: Yes (ANEMIA) Family Medical History Arthritis G8 BROTHER BRAIN ANEURYSM 19 MOTHER Hypertension G8 BROTHER G8 BROTHER G8 BROTHER Myocardial infarction 19 FATHER No Pertinent Family Hx PSH: -RIGHT ROTATOR CUFF SURGERY -BILATERAL CARPAL TUNNEL REPAIR -BACK SURGERY/LUMBAR SPINE -RIGHT TIB/FIB/ANKLE FRACTURE REPAIR -BILATERAL TOTAL KNEE REPLACEMENTS, AND ONE KNEE DONE TWICE. -APPENDECTOMY -RIGHT MASTECTOMY WITH LYMPHNODE REMOVAL RECONSTRUCTIVE SURGERY--CHRONIC RIGHT BREAST IMPLANT RUPTURE--NEVER REMOVED/REPLACED -LEFT BREAST SURGERY/RECONSTRUCTION -BLADDER SUSPENSIONS -THYROIDECTOMY FOR GOITER -HYSTERECTOMY/BILATERAL SALPINGO-OOPHORECTOMY -BILATERAL CATARACT SURGERY Physical Exam Vital Signs Vital Signs - First Documented 12/01/22 22:40 Temp 36.5 Pulse 59 Resp 16 B/P (MAP) 233/102 (145) Pulse Ox 97 O2 Delivery Room Air Capillary Refill : Less Than 3 Seconds Height, Weight, BMI Height: 5'2.00" Weight: 220lbs. 0oz. 99.638605og; 39.00 BMI Method:Stated General Appearance: WD/WN, no apparent distress, obese, other (WALKS IN ON HER OWN WITHOUT DIFFICULTY) HEENT: PERRL/EOMI, normal ENT inspection, TMs normal Neck: supple, tender lateral (BILATERAL POSTERIOR NECK MUSCLE TENDERNESS, NO BONY TENDERNESS. ) Cardiovascular: regular rate, rhythm, no murmur Respiratory: chest non-tender, normal breath sounds, no respiratory distress, no accessory muscle use Gastrointestinal: normal bowel sounds, non tender, soft Back: no CVA tenderness, other (DIFFUSE THORACIC SPINE AND UPPER LUMBAR SPINE TENDERNESS. MODERATE KYPHOSIS. 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, no motor/sensory deficits, alert, normal mood/affect, oriented x 3 Skin: normal color, warm/dry, other (THERE IS NO EXTERNAL EVIDENCE OF TRAUMA ANYWHERE) Bandar Coma Score Best Eye Response: (4) Open Spontaneously Best Verbal Response: (5) Oriented Best Motor Response: (6) Obeys Commands Bandar Total: 15 Progress/Results/Core Measures Results/Orders My Orders Orders - QUINTON CLARKE DO Ct Head/Cervical Spine Wo (12/01/22 22:49) Ct Thoracic/Lumbar Spine Wo (12/01/22 22:49) Chest 1 View, Ap/Pa Only (12/01/22 22:49) Pelvis 1 To 2 Views (12/01/22 22:49) Ketorolac Injection (Toradol Injection) (12/02/22 00:15) Rx-Hydrocodone/Apap 5-325 Mg (Rx-Vicodin (12/02/22 00:15) Medications Given in ED Current Medications Medications Dose Ordered Sig/[place] Route Start Time Stop Time Status Last Admin Dose Admin Acetaminophen/ Hydrocodone Bitart 1 ea Q4H PRN PO 12/02/22 00:15 12/02/22 00:21 DC 12/02/22 00:18 1 EA Ketorolac Tromethamine 60 mg ONCE ONCE IM 12/02/22 00:15 12/02/22 00:16 DC 12/02/22 00:18 60 MG Vital Signs/I&O 12/01/22 12/02/22 22:40 00:20 Temp 36.5 36.6 Pulse 59 61 Resp 16 16 B/P (MAP) 233/102 (145) 169/97 Pulse Ox 97 98 O2 Delivery Room Air Room Air Blood Pressure Mean: 145 Progress Progress Note : Progress Note NO DETERIORATION IN PT'S CONDITION DURING ER STAY GIVEN TORADOL IM AND SENT HOME WITH TAKE HOME PACK OF HYDROCODONE ADVISED THAT ANY REFILLS ON HER HYDROCODONE WOULD NEED TO BE DONE BY HER REGULAR DR. REVIEWED TEST RESULTS, ANTICIPATED COURSE, SYMPTOMATIC TREATMENT, MEDICATIONS, DISCUSSED USE OF A WALKER DUE TO FREQUENT FALLS--DAUGHTER STATES SHE WILL FOLLOW UP WITH THIS, DISCUSSED NEED FOR FOLLOW UP AND RETURN PRECAUTIONS. REVIEWED PRIOR RECORDS--20 VISITS SINCE 2013, WITH NEARLY ALL FOR INJURIES FROM FALLING OR VARIOUS PAIN COMPLAINTS, SHE HAS HAD A SINGLE ADMIT HERE FOR UTI WITH ACUTE KIDNEY INJURY. REVIEWED PT'S MEDICATIONS, PER MED RECONCILIATION, PT HAS FILLED: -HYDROCODONE 10/325 #120 ON 11/09/22--PT STATES SHE RAN OUT A COUPLE OF DAYS AGO. SHE GETS THIS SAME AMOUNT EVERY MONTH -NAPROXEN 500 MG BID #60 ON 11/14/22 SHE ALSO TAKES XANAX BID, PAROXETINE, AND OXYBUTYNIN WILL REFRAIN FROM PRESCRIBING ANY ADDITIONAL MEDICATIONS FOR PAIN OR MUSCLE RELAXANTS SHE IS ALREADY ON SEVERAL MEDICATIONS THAT CAN CAUSE DROWSINESS, AND THEREFORE INCREASE HER FALL RISK. Diagnostic Imaging Comments XRAYS--ALL PENDING RADIOLOGIST REVIEW CXR--NO ACUTE PROCESS, CHRONIC CHANGES PELVIS--NO ACUTE PROCESS. CT HEAD / CERVICAL SPINE--PER [facility] VIA FAX AT 2344 -NO ACUTE INTRACRANIAL PATHOLOGY -NO ACUTE FRACTURE -MULTILEVEL DEGENERATIVE CHANGES OF CERVICAL SPINE CT THORACIC / LUMBAR SPINE--PER [facility] VIA FAX AT 0002 -NO ACUTE FRACTURE -MULTILEVEL DEGENERATIVE CHANGES -LUMBAR HARDWARE INTACT. Reviewed: Reviewed by Me Departure Impression Primary Impression: Fall from standing Additional Impressions: Minor head injury without loss of consciousness Neck strain BACK CONTUSION AND STRAIN Exacerbation of chronic back pain Disposition: HOME, SELF-CARE Condition: Stable Departure-Patient Inst. Decision time for Depature: 00:05 Referrals: VANGIE BLEDSOE DO (PCP/Family) Primary Care Physician Patient Instructions: General Trauma, Adult ED, Head Injury in Adults (DC), Preventing Falls ED Add. Discharge Instructions: YOU MAY TAKE TYLENOL NEEDED FOR PAIN FOLLOW UP WITH YOUR DR FOR FURTHER PAIN MEDICATIONS. YOU SHOULD CONSIDER PURCHASING A WALKER TO ASSIST YOUR WALKING. RETURN TO ER IF YOUR SYMPTOMS WORSEN All discharge instructions reviewed with patient and/or family. Voiced understanding. QUINTON CLARKE DO Dec 01, 2022 23:08
[2022-12-02] MEDS ORDERED: KETOROLAC 60 MG/2 ML VIAL IM ONE (00:15)
[2022-12-02 00:20] VITALS: BP 169/97
--- NOTE | 2022-12-02 07:41 | Diagnostic Imaging Report ---
EXAMINATION: Chest radiograph, portable AP view. DATE: 12/01/2022 11:33 PM. INDICATION: 77-year-old female, fall. Chest pain. COMPARISON: August 11, 2022. FINDINGS: There are surgical clips in the right lateral chest. The heart size and mediastinal contours are unchanged. There is no identified pneumothorax. There is no large pleural effusion. There is no identified focal airspace consolidation. There are chronic appearing left rib deformities. IMPRESSION: 1. No identified acute cardiopulmonary abnormality. 2. Redemonstrated and chronic appearing left rib deformities. Dictated by: Dictated on workstation # [id number]
--- NOTE | 2022-12-02 07:42 | Diagnostic Imaging Report ---
EXAMINATION: Pelvis, single view. COMPARISON: CT chest, abdomen, and pelvis August 11, 2022. HISTORY: 77-year-old female, fall. Pelvic pain. FINDINGS: There is spinal hardware at L4-L5. The pubic symphysis and sacroiliac joints are normally aligned. The bones appear potentially demineralized. There are vascular calcifications. The hips are not obviously dislocated. There is no identified acute fracture. There are areas of degenerative type enthesopathy. IMPRESSION: The bones appear potentially demineralized without radiographically apparent acute abnormality of the pelvis. Dictated by: Dictated on workstation # [id number]
--- NOTE | 2022-12-02 08:36 | Diagnostic Imaging Report ---
Clinical Indication: Patient is status post fall. Exam: Axial CT scan of the thoracic and lumbar spine performed without IV contrast. Sagittal and coronal reformations were performed. Bone and soft tissue windows were created. Auto Exposure Controls were utilized during the CT exam to meet ALARA standards for radiation dose reduction. Comparison: CT scan of the chest, abdomen, and pelvis without contrast dated 08/11/2022. Findings: There is no acute thoracic or lumbar fracture or dislocation. Thoracic and lumbar spine have normal alignment. There are degenerative hypertrophic spurs involving the thoracic and lumbar spine. There is lower lumbar spine facet arthropathy. There is L4-L5 posterior lumbar interbody fusion with solid bony bridging/fusion seen. The visualized extrathoracic, and lumbar soft tissue structures are unremarkable. Impression: There is no acute thoracic spine and lumbar spine fracture or dislocation. I agree with [facility] report. Dictated by: Dictated on workstation # [id number]
--- NOTE | 2022-12-02 08:42 | Diagnostic Imaging Report ---
CLINICAL INDICATION: Patient is status post fall. Exam: Head CT without IV contrast with sagittal and coronal reformations. Axial CT scan of the cervical spine with sagittal and coronal reformations. Auto Exposure Controls were utilized during the CT exam to meet ALARA standards for radiation dose reduction. Comparison: CT scan of the head, face, cervical spine dated 03/25/2020. Findings: Head CT: There is no evidence of acute cerebral infarct, intracranial hemorrhage, or gross mass effect. Interval development of focal calcification within a left M2 MCA vessels on the left sylvian fissure region. The brain parenchymal volume appears appropriate for patient's age. Mild chronic small vessel ischemic disease is again noted which has not significantly changed. There is normal ramirez-white matter distinction. There is no significant midline shift or herniation. There is no evidence of hydrocephalus. The basal cisterns are unremarkable. The skull, extracranial soft tissue, and orbits are unremarkable. There is minimal mucosal thickening involving left maxillary sinus. There is a small amount of fluid involving the right mastoid air cells. Cervical spine: There is no acute cervical spine fracture or dislocation. There is diffuse disk bulges at the C3-C4 and C4-C5 level which are partially calcified which causes at least moderate central canal narrowing at the C3-C4 level and at least [id number] central canal narrowing at C4-C5 level. There is moderate left C3-C4 neural foramen narrowing. Stable chronic amorphous calcification posterior to the C7 spinous process. Impression: 1: There is no CT evidence of acute intracranial process. There is no skull fracture. 2: There is cervical spine degenerative disease with no acute fracture. I agree with [facility] report. Dictated by: Dictated on workstation # [id number]
== END 2022-12-02 00:21 | disposition home or self-care (01) ==
LOC: EDUNIT# 22:36 → ER 22:38
DX: S09.90XA Unspecified injury of head, initial encounter (principal); S16.1XXA Strain of muscle, fascia and tendon at neck level, initial encounter; S39.012A Strain of muscle, fascia and tendon of lower back, initial encounter; S29.012A Strain of muscle and tendon of back wall of thorax, initial encounter; G89.29 Other chronic pain; M19.90 Unspecified osteoarthritis, unspecified site; E66.9 Obesity, unspecified; E11.9 Type 2 diabetes mellitus without complications; Z79.4 Long term (current) use of insulin; Z68.39 Body mass index [BMI] 39.0-39.9, adult; Z79.1 Long term (current) use of non-steroidal anti-inflammatories (NSAID); Z79.82 Long term (current) use of aspirin; Z98.890 Other specified postprocedural states; W01.198A Fall on same level from slipping, tripping and stumbling with subsequent striking against other object, initial encounter; Y92.000 Kitchen of unspecified non-institutional (private) residence as the place of occurrence of the external cause
CPT/HCPCS: 70450; 71045; 72125; 72128; 72131; 72170